=== PATIENT | male | born 1950 | race Caucasian/White ===

== ENCOUNTER 2017-10-28 09:40 | Inpatient (IN) | payer MEDICARE, SELFPAY ==
--- NOTE | 2017-10-28 10:06 | RAD ---
RIGHT FOOT 3 VIEWS: Date: 10/28/17 HISTORY: Right foot injury. FINDINGS: No comparison. Lisfranc joint alignment is anatomic. Plantar arch is maintained. Mild osteophytosis and subchondral sclerosis are present at the first metatarsophalangeal joint. No acute fracture, dislocation, or aggr essive osseous erosions are apparent. IMPRESSION: Mild osteoarthritic changes right foot. POS: [facility]
[2017-10-28 16:28] LABS: #Eosinphils 0.1 thou/uL (0.0-0.7); #Lymphocytes 1.8 thou/uL (1.20-3.40); #Monocytes 0.4 thou/uL (0.11-0.59); #Neutrophils 3.9 thou/uL (1.40-6.50); %Basophils 0.7 % (0.0-1.0); %Lymphocytes 29.3 % (21.0-51.0); %Monocytes 6.9 % (0.0-10.0); Hematocrit 54.4 % (42.0-52.0); Red Blood Cell (RBC) Count 5.64 mill/uL (4.70-6.10); White Blood Cell (WBC) Count 6.3 thou/uL (4.8-10.8)
[2017-10-28 16:41] LABS: ALT (SGPT) 24 U/L (8-55); AST (SGOT) 30 U/L (5-34); Alkaline Phosphatase 67 U/L (40-150); Anion Gap 16 mmol/L (10-20); BUN (Urea Nitrogen) 20 mg/dL (8.4-25.7); Calc. Creatinine Clearance 0 mL/min (70-130); Carbon Dioxide 24 mmol/L (23-31); Chloride 102 mmol/L (98-107); Estimated GFR-MDRD 45; Globulin 3.8 g/dL (2.4-3.5)
[2017-10-28] MEDS ORDERED: ISOVUE-370 76%-LOCM 1 ML ONE (17:07)
--- NOTE | 2017-10-28 17:55 | CT ---
CT ANGIOGRAM OF THE ABDOMEN AND PELVIS AND BILATERAL LOWER EXTREMITIES WITH IV CONTRAST AND 3D MIP RE CONSTRUCTIONS: Date: 10/28/17 PROVIDED CLINICAL HISTORY: Right foot pain and poor circulation. FINDINGS: The visualized lung bases are free of significant opacity. Emphysematous changes are seen. Solid abdominal organs are suboptimally evaluated in the arterial phase of contrast and demonstrate a n unremarkable CT appearance for the phase of contrast in which the study was acquired. There is no b owel dilatation, inflammatory fat stranding, free fluid, or free air apparent. The abdominal aorta is nonaneurysmal. There is moderate stenosis involving the left renal artery at i ts origin. There is mild right-sided renal artery stenosis. There is multifocal atherosclerotic calci fication involving the superior mesenteric artery, as well as the celiac artery and its branches. The re is moderate stenosis involving the proximal SMA. The inferior mesenteric artery is not definitely opacified. Changes of aortobifemoral bypass are demonstrated. There is essentially nonopacification of the super ficial femoral arteries bilaterally. There is reconstitution at the level of the popliteal arteries b ilaterally via branches of profunda and geniculate. There is moderate to severe multifocal predominan tly calcified stenosis involving both popliteal arteries. On the left, there is extensive atherosclerotic plaque involving the anterior tibial artery which is not definitely opacified distal to the mid calf. The posterior tibial artery is predominantly nonopac ified on the left. There is reconstitution of the distal anterior tibial and posterior tibial arterie s via branches of the peroneal artery. On the right, there is opacification of the anterior tibial artery to the level of the foot. The post erior tibial artery is diminutive, but appears opacified to the level of the ankle. The peroneal veronica ry is opacified to the level of the distal calf. IMPRESSION: Extensive bilateral lower extremity atherosclerotic vascular disease predominantly involving the supe rficial femoral arteries which were essentially occluded bilaterally and heavily diseased bilateral p opliteal arteries. There is essentially one vessel runoff on the left and two vessel runoff on the ri ght. Additional mesenteric stenosis as described above. POS: [facility]
[2017-10-28] MEDS ORDERED: Piperacillin/Tazobactam 4.5 GM in Sodium Chloride 0.9% 100 ML IVPB ONE (18:15)
[2017-10-28] MEDS ORDERED: Acetaminophen 325 MG TAB PO PRN (20:16)
[2017-10-28] MEDS ORDERED: HYDROcodone/Acetaminophen 5/325 mg Tablet PO PRN ×2 (20:23)
[2017-10-28] MEDS ORDERED: Ondansetron ODT 4 MG TAB SL PRN (20:23)
[2017-10-28] MEDS ORDERED: Ondansetron HCl/PF 4 MG/2 ML Vial IVP PRN (20:23)
[2017-10-28] MEDS ORDERED: Labetalol HCl 100 MG/20 ML VIAL SLOW IVP PRN (20:45)
[2017-10-28] MEDS ORDERED: hydrALAZINE 20 MG/ML VIAL SLOW IVP PRN (20:45)
[2017-10-28 22:50] VITALS: BMI 21.9
--- NOTE | 2017-10-28 23:53 | CON ---
DATE OF ER EVALUATION: 10/28/2017 HISTORY OF PRESENT ILLNESS: This is a 66-year-old gentleman who dropped a skillet on his right foot on 10/10/2017. Due to failure to heal, the patient presented for evaluation. He has had no fever, p ain, or chills. He has been placing alcohol on the dorsum of his right foot twice a day to keep it c lean. 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 He subsequently required a c arotid endarterectomy for an asymptomatic high grade carotid stenosis and has not been seen for rhonda yost since 2013 despite attempts to bring him in. He denies any claudication, although walks with a c ane. He says he can walk a block without any difficulties. He has no rest pain at night. He denies any past medical history, but has been previously diagnosed with hypertension, dyslipidemia. He pre viously was on a statin as well as enalapril. PAST SURGICAL HISTORY: He has a past surgical history of knee surgery. SOCIAL HISTORY: He has not smoked since 2010. He was a valera prior to skilled nursing. PHYSICAL EXAMINATION: GENERAL: On examination today, he is alert and cooperative with no distress. VITAL SIGNS: He is afebrile. NECK: No carotid bruits. Healed scar. LUNGS: Clear to auscultation. CARDIAC: Regular rate and rhythm. No murmurs. ABDOMEN: Soft, nontender. EXTREMITIES: He has a healed groin incisions bilaterally with palpable femoral pulses. He has a pal pable pulse in his right dorsalis pedis with a biphasic Doppler signal. He has a monophasic posterio r tibial and peroneal on the right. On the left, he has a better posterior tibial signal and a monop hasic dorsalis pedis that is difficult to pickle pumper. He has some erythema over the dorsum of his right foot with some mild purple discoloration. He has no significant skin breakage. He is nontender, no t swollen. LABORATORY DATA: His white count is normal. His hemoglobin is 18 with a hematocrit of 54.4 and a no rmal platelet count. Creatinine is elevated at 1.55. GFR was 45. ASSESSMENT AND PLAN: At this time, he does have some skin at risk, but appears to have adequate circ ulation with a palpable dorsalis pedis and a biphasic signal. His CT angiogram shows widely patent a ortobifemoral with a long profundoplasty is in good profunda circulation, occluded superficial femora l arteries, which is chronic and reconstitution of the popliteal arteries at about the knee level wit h three-vessel runoff, although with some calcification in these vessels. Given the skin changes, pr obably some IV antibiotics to see if this will improve. I am a little hesitant to send him home on o ral antibiotics due to the fact that he is no longer taking as needed medications and there is little room for error on the dorsum of the foot if it were to become more extensive. He could have a femor al to infragenicular popliteal artery bypass with the skin changes worsened but at this time, I think his circulation is adequate.
[2017-10-29] MEDS: Piperacillin/Tazobactam 2.25 GM in Sodium Chloride 0.9% 100 ML IVPB SCH ×5 (00:46→23:25)
[2017-10-29 04:39] LABS: #Eosinphils 0.2 thou/uL (0.0-0.7); #Lymphocytes 2.3 thou/uL (1.20-3.40); #Monocytes 0.6 thou/uL (0.11-0.59); %Basophils 0.5 % (0.0-1.0); %Eosinophils 3.2 % (0.0-10.0); %Lymphocytes 32.3 % (21.0-51.0); %Monocytes 8.2 % (0.0-10.0); Hematocrit 45.2 % (42.0-52.0); White Blood Cell (WBC) Count 7.1 thou/uL (4.8-10.8)
[2017-10-29 04:51] LABS: ALT (SGPT) 19 U/L (8-55); AST (SGOT) 23 U/L (5-34); Alkaline Phosphatase 52 U/L (40-150); Anion Gap 13 mmol/L (10-20); BUN (Urea Nitrogen) 21 mg/dL (8.4-25.7); Bilirubin, Total 1.1 mg/dL (0.2-1.2); Calc. Creatinine Clearance 43 mL/min (70-130); Calcium 10.3 mg/dL (7.8-10.44); Carbon Dioxide 27 mmol/L (23-31); Chloride 98 mmol/L (98-107); Estimated GFR-MDRD 41; Globulin 3.2 g/dL (2.4-3.5); Protein, Total 7.2 g/dL (5.8-8.1)
--- NOTE | 2017-10-29 05:57 | HP-2 ---
CODE STATUS: FULL. PRIMARY CARE PHYSICIAN: [facility]. ATTENDING: Dr. Broussard. RESIDENT: Camacho Montgomery M.D. HISTORIAN: Patient. DATE AND TIME OF SERVICE: 10/28/2017 at 2200 hours. CHIEF COMPLAINT: Foot pain. HISTORY OF PRESENT ILLNESS: Vito Barroso is a 67-year-old man with past medical history of hypertensi on, hyperlipidemia who presents with worsening foot infection. Around 10/10/2017, he dropped a fryin g ramirez on his right foot. Initially, the foot was just bruised and had a skin abrasion. For the last week, the patient's right foot has become more painful and red. The patient has a history of periph eral artery disease. Dr. Patton is familiar with the patient and was consulted. [facility] and saw the patient, he felt as though the patient had good blood flow to the extremities including the right lower extremity, but had concern for a cellulitis and recommen ded IV antibiotics. Patient has not been seeing a primary care doctor or taken any medications for t he last 2 years. In the ER, the patient received Zosyn, vancomycin, and enalapril. PAST MEDICAL HISTORY: 1. Hypertension, uncontrolled. 2. Hyperlipidemia. 3. Atherosclerotic disease. PAST SURGICAL HISTORY: 1. Aortic bypass. 2. Left endarterectomy. ALLERGIES: No known drug allergies. MEDICATIONS: No home medications. FAMILY HISTORY: Unremarkable. SOCIAL HISTORY: The patient denies tobacco, alcohol, and drug use. REVIEW OF SYSTEMS: General, eyes, ENT, respiratory, CV, GI, , skin, musculoskeletal, neuro, and ps ych all negative, unless otherwise stated in HPI. PHYSICAL EXAMINATION: VITAL SIGNS: Blood pressure 197/111, pulse 84, respiratory rate 16, T-max 97.8, pulse ox 99% on room air. Current weight 72 kilograms. GENERAL: The patient is alert and oriented x3 in no acute distress. Well-developed, well-nourished, and appropriately interactive. HEENT: Pupils are equal, round, reactive to light and accommodation. Extraocular muscles intact. C onjunctivae within normal limits. ENT: Tympanic membranes pearly crow without erythema or bulging. Nasal mucosa and oropharynx within normal limits. NECK: Supple, without lymphadenopathy or thyromegaly. CARDIOVASCULAR: Regular rate and rhythm. No murmurs or gallops. RESPIRATORY: Normal effort, no retractions. LUNGS: Clear to auscultation bilaterally. SKIN: Warm and dry with erythema and tenderness to palpation over the dorsum of the right foot. ABDOMEN: Soft, nontender, bowel sounds x4. No masses or distention. EXTREMITIES: No clubbing, cyanosis, or edema. MUSCULOSKELETAL: Structure and tone within normal limits. Full range of motion. NEUROLOGIC: No focal deficits. Sensation within normal limits. PSYCHIATRIC: Appropriate. LABORATORY DATA: White blood cell count 6.3, hemoglobin 18.0, hematocrit 54.4, platelets 209. Sodiu m 138, potassium 4.3, chloride 102, carbon dioxide 24, BUN 20, creatinine 1.55, glucose 91, calcium 1 1.0. Total protein 9.0, albumin 5.2, total bilirubin 1.0, AST 30, ALT 24, alkaline phosphatase 67. ESR 17. CRP less than 0.05. X-ray of the right foot, mild osteoarthritis. CTA of abdomen and pelvi s and bilateral lower extremities, extensive lower extremity, atherosclerotic vascular disease predom inantly in the superficial femoral arteries. ASSESSMENT AND PLAN: A 67-year-old male with cellulitis of right foot. 1. Cellulitis. Admit to inpatient medical. Start IV antibiotics with vancomycin and Zosyn. Pain c ontrol, ESR, and CRP were normal. Low concern for osteomyelitis. Continue following vital signs, re peat morning labs. Foot x-ray only shows mild osteoarthritic changes to right foot. 2. Hypertensive urgency. Patient has not taken BP meds in the last 2 years. Start lisinopril daily and with p.r.n. IV hydralazine and labetalol for systolic blood pressure greater than 180. 3. Acute kidney injury versus chronic kidney disease, uncontrolled hypertension. 4. Unknown amount of time. We will trend a GFR. The patient is tolerating p.o. fluids. 5. Peripheral artery disease, consider starting aspirin and statin. The patient is to be seen by pr imary care physician. 6. Hypercalcemia corrects to normal calcium, when adjusting for albumin. Consider multiple myeloma workup. 7. Activity: Ad johan. 8. Diet: Heart healthy. 9. Code status: FULL. DISPOSITION LENGTH OF HOSPITAL STAY: 2 days. Symptomatic medication will be provided. History and physical exam as well as management were discussed with Dr. Broussard.
[2017-10-29] MEDS: Sodium Chloride 0.9% 1,000 ML IV SCH ×3 (08:02→17:29)
--- NOTE | 2017-10-29 08:22 | PDOC.FM ---
- Subjective Subjective: Pt reports doing much better this morning. Says that his foot swelling, redness and pain has decreased since last night. Denies fever, chills. denies any acute events overnight. Reports having some itching in his calfs. Denies any chest pain, headaches, dizziness, or vision changes. - Objective MAR Reviewed: Yes Vital Signs & Weight: Vital Signs (12 hours) Temp Pulse Resp BP BP BP Pulse Ox 10/29/17 08:05 107/73 10/29/17 07:24 98 F 72 16 107/73 94 L 10/29/17 04:00 97.6 F 73 20 119/72 94 L 10/28/17 22:50 82 107/72 10/28/17 21:27 132/89 Weight Weight 69.127 kg I&O: 10/28/17 10/29/17 10/30/17 06:59 06:59 06:59 Intake Total 395 Output Total 350 Balance 45 Result Diagrams: 10/29/17 03:21 10/29/17 03:21 Radiology Reviewed by me: Yes Radiology: Foot X-Ray: Mild osteoarthritic changes CT angiogram of abdomen and pelvis and bilateral lower extremitites: Extensive bilateral lower extremity atherosclerotic vascular dz predominantly involving the superficial femoral arteries which were essentially occluded bilaterally and heavily diseased bilateral popliteral arteries. There is essentially one vessel runoff on the left and two vessel runoff on the right. <Jayro Andrews - Last Filed: 10/29/17 08:21> - Objective Vital Signs & Weight: Vital Signs (12 hours) Temp Pulse Resp BP BP BP Pulse Ox 10/29/17 11:22 98 F 80 16 129/83 98 10/29/17 10:14 72 107/73 10/29/17 08:05 107/73 10/29/17 08:00 98 F 72 16 10/29/17 07:24 98 F 72 16 107/73 94 L 10/29/17 04:00 97.6 F 73 20 119/72 94 L Weight Weight 69.127 kg I&O: 10/28/17 10/29/17 10/30/17 06:59 06:59 06:59 Intake Total 395 200 Output Total 350 Balance 45 200 Result Diagrams: 10/29/17 03:21 10/29/17 03:21 <Gurpreet Mayes - Last Filed: 10/29/17 12:29> Phys Exam - Physical Examination HEENT: moist MMs, oral pharynx no lesions Neck: no nodes, supple, full ROM Respiratory: no wheezing, no rales, no rhonchi, clear to auscultation bilateral Cardiovascular: RRR, no significant murmur, no rub Gastrointestinal: soft, non-tender, no distention, positive bowel sounds Musculoskeletal: no edema, pulses present pusles weak in lower extremities Neurological: non-focal, normal sensation, moves all 4 limbs Lymphatic: no nodes Psychiatric: normal affect, A&O x 3 Deviation from normal: Redness and bruising noted on anterior right foot. Warm to touch. -: Pt states improved from yesterday. <Jayro Andrews - Last Filed: 10/29/17 08:21> Dx/Plan (1) Cellulitis and abscess of foot excluding toe Code(s): L03.119 - CELLULITIS OF UNSPECIFIED PART OF LIMB; L02.619 - CUTANEOUS ABSCESS OF UNSPECIFIED FOOT Status: Acute Plan: -Redness and bruising on R. foot since late september when he dropped a ramirez on it. Warm to touch. -On IV vancomycin and zosyn. Improving since yesterday. Will continue IV abx for today and possibly switch to oral tmrw. -No elevated WBC. No fevers overnight. (2) PAD (peripheral artery disease) Code(s): I73.9 - PERIPHERAL VASCULAR DISEASE, UNSPECIFIED Status: Acute Plan: -Hx of PAD. -CT angiogram done showing occlusion of multiple vessels. -CV surgery consulted- Dr. Patton -Reports good perfusion to area. Thinks cellulitis of foot. Recommends continuing with abx -Will continue to follow recommendations (3) Hypertensive urgency Code(s): I16.0 - HYPERTENSIVE URGENCY Status: Acute Plan: BP elevated in 200s on admission. Given enalapril and IV labetolol/hydralazine. Since then has normalized. -Cr elevated. Will start norvasc instead of continuing enalapril at this time. Will continue to monitor BP and adjust medication as needed. -Iv Labetolol/hydralzine PRN if SBP >180 -If Cr improves may switch to lisinopril. (4) FANTASMA (acute kidney injury) Code(s): N17.9 - ACUTE KIDNEY FAILURE, UNSPECIFIED Status: Acute Plan: Cr 1.69 today. Likely due to poor perfusion from elevated BP in recent past. Had not been to a doctor for a few years. -Started IV NS@125. Will follow BMP tmrw for improvement. <Jayro Andrews - Last Filed: 10/29/17 08:21> Attending Addendum - Attending Addendum I personally evaluated the patient and discussed the management with Dr. Andrews. I agree with the History, Examination, Assessment and Plan documented above with any addition or exceptions noted below. Patient with some improvement in cellulitis this morning on antibiotic therapy. CV surgery thinks he has adequate blood flow to treat infection, but will need close outpatient follow up. Will continue patient on Vancomycin which will require drug monitoring to ensure levels not toxic. Continue Zosyn. If continues to improve and remains afebrile, may be ready for transition to oral abx in next 1-2 days and discharge at that time. Will add Norvasc to blood pressure regimen to help gain better control of his currently untreated HTN. <Gurpreet Mayes - Last Filed: 10/29/17 12:29>
[2017-10-29] MEDS ORDERED: FLU VACC TS2017-18 (>65YR) 0.5 ML SYRINGE IM ONE (09:00)
[2017-10-29] MEDS ORDERED: Vancomycin HCl 1.25 GM in Sodium Chloride 0.9% 250 ML 250 ML IVPB SCH (09:00)
[2017-10-29] MEDS ORDERED: Lisinopril 10 MG TAB PO SCH (09:00)
[2017-10-29 09:11] LABS: Band 5 % (5-11); Reactive Lymphocytes 1 % (0-10)
[2017-10-29 09:12] LABS: Neutrophil 63 % (42-75)
[2017-10-29] MEDS: Amlodipine 5 MG TAB PO SCH (10:14)
[2017-10-29] MEDS: Vancomycin HCl 1.5 GM in Sodium Chloride 0.9% 250 ML 300 ML IVPB SCH (11:54)
[2017-10-29] MEDS ORDERED: diphenhydrAMINE 25 MG CAP PO ONE (15:52)
[2017-10-29] MEDS: diphenhydrAMINE 25 MG CAP PO PRN (23:28)
[2017-10-30] MEDS: Sodium Chloride 0.9% 1,000 ML IV SCH ×3 (02:26→15:00)
[2017-10-30] MEDS: Piperacillin/Tazobactam 2.25 GM in Sodium Chloride 0.9% 100 ML IVPB SCH ×2 (05:28→11:19)
[2017-10-30 07:01] LABS: #Eosinphils 0.3 thou/uL (0.0-0.7); #Monocytes 0.6 thou/uL (0.11-0.59); #Neutrophils 3.4 thou/uL (1.40-6.50); %Basophils 0.8 % (0.0-1.0); %Eosinophils 4.3 % (0.0-10.0); %Lymphocytes 31.7 % (21.0-51.0); %Monocytes 9.5 % (0.0-10.0); Hematocrit 44.4 % (42.0-52.0); Red Blood Cell (RBC) Count 4.55 mill/uL (4.70-6.10); White Blood Cell (WBC) Count 6.4 thou/uL (4.8-10.8)
[2017-10-30 07:41] LABS: Anion Gap 13 mmol/L (10-20); BUN (Urea Nitrogen) 21 mg/dL (8.4-25.7); Calc. Creatinine Clearance 48 mL/min (70-130); Calcium 9.4 mg/dL (7.8-10.44); Carbon Dioxide 22 mmol/L (23-31); Chloride 108 mmol/L (98-107); Estimated GFR-MDRD 47
--- NOTE | 2017-10-30 08:10 | PDOC.FM ---
- Subjective Subjective: Pt is doing okay. Says his foot is doing better. Was up walking around with minimal pain. Says the wound started weeping last night. Still reporting having an itching/tingling pain in his calfs. Says that the benadryll helped some. Has been putting lotion but still experiencing the itching sensation. Says if legs get to hot gets irritated. Denies any acute events overnight. No other concerns or complaints at this time. - Objective MAR Reviewed: Yes Vital Signs & Weight: Vital Signs (12 hours) Temp Pulse Resp BP Pulse Ox 10/30/17 07:45 97.4 F L 72 18 160/88 H 94 L Weight Weight 69.127 kg I&O: 10/29/17 10/30/17 10/31/17 06:59 06:59 06:59 Intake Total 395 2780 Output Total 350 Balance 45 2780 Result Diagrams: 10/30/17 04:46 10/30/17 04:46 Radiology Reviewed by me: Yes Radiology: Foot X-Ray: Mild osteoarthritic changes CT angiogram of abdomen and pelvis and bilateral lower extremitites: Extensive bilateral lower extremity atherosclerotic vascular dz predominantly involving the superficial femoral arteries which were essentially occluded bilaterally and heavily diseased bilateral popliteral arteries. There is essentially one vessel runoff on the left and two vessel runoff on the right. <Jayro Andrews - Last Filed: 10/30/17 08:10> - Objective Vital Signs & Weight: Vital Signs (12 hours) Temp Pulse Resp BP BP Pulse Ox 10/30/17 08:36 72 160/88 H 10/30/17 07:45 97.4 F L 72 18 160/88 H 94 L Weight Weight 69.127 kg I&O: 10/29/17 10/30/17 10/31/17 06:59 06:59 06:59 Intake Total 395 2780 Output Total 350 Balance 45 2780 Result Diagrams: 10/30/17 04:46 10/30/17 04:46 <Gurpreet Mayes - Last Filed: 10/30/17 11:50> Phys Exam - Physical Examination HEENT: moist MMs, oral pharynx no lesions Neck: no nodes, no JVD, supple, full ROM Respiratory: no wheezing, no rales, no rhonchi, clear to auscultation bilateral Cardiovascular: RRR, no significant murmur, no rub Gastrointestinal: soft, non-tender, no distention, positive bowel sounds Musculoskeletal: no edema Pulses faint in LE bilaterally. no dryness noted in calfs Some redness noted. Neurological: non-focal, normal sensation, moves all 4 limbs Lymphatic: no nodes Psychiatric: normal affect Deviation from normal: Erythematous, bruising on anterior R. foot. Stable from yesterday. -: No drainage noted this morning. 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 <DarrylJayro - Last Filed: 10/30/17 08:10> Dx/Plan (1) Cellulitis and abscess of foot excluding toe Code(s): L03.119 - CELLULITIS OF UNSPECIFIED PART OF LIMB; L02.619 - CUTANEOUS ABSCESS OF UNSPECIFIED FOOT Status: Acute Plan: -Redness and bruising on R. foot since late september when he dropped a ramirez on it. Warm to touch. -Erythema improved from yesterday. -On IV vancomycin and zosyn. Will give IV abx this morning and switch to oral abx -No elevated WBC. No fevers overnight. (2) PAD (peripheral artery disease) Code(s): I73.9 - PERIPHERAL VASCULAR DISEASE, UNSPECIFIED Status: Acute Plan: -Hx of PAD. -CT angiogram done showing occlusion of multiple vessels. -CV surgery consulted- Dr. Patton -Reports good perfusion to area. Thinks cellulitis of foot. Recommends continuing with abx -Will continue to follow recommendations -Having tingling/itching pain in lower extremitites bilaterally. No sign of dryness or rash. Possibly sensation he is feeling is related to decreased blood flow from PAD. Will start him on a statin and aspirin to help with PAD. Benadryll for itching. -Will consider other medications to help with possible neuropathic, vascular pain. (3) Hypertensive urgency Code(s): I16.0 - HYPERTENSIVE URGENCY Status: Acute Plan: BP elevated in 200s on admission. Given enalapril and IV labetolol/hydralazine. Since then has normalized. -Cr elevated. On 5mg of Norvasc. BP stable. Will continue to monitor BP and adjust medication as needed. -Iv Labetolol/hydralzine PRN if SBP >180 -If Cr improves may switch to lisinopril. (4) FANTASMA (acute kidney injury) Code(s): N17.9 - ACUTE KIDNEY FAILURE, UNSPECIFIED Status: Acute Plan: Cr 1.51 today. Down from 1.69 yesterday. Possibly around baseline. Likely due to poor perfusion from elevated BP in recent past. Had not been to a doctor for a few years. -IV NS@125. Will continue IV fluids for now. <Jayro Andrews - Last Filed: 10/30/17 08:10> Attending Addendum - Attending Addendum I personally evaluated the patient and discussed the management with Dr. Andrews. I agree with the History, Examination, Assessment and Plan documented above with any addition or exceptions noted below. Patient with stable exam of foot today. No evidence of worsening infection. Continues on Vanc and Zosyn, Vanc trough appropriate. Afebrile and no elevation in WBC. Awaiting further recommendations from CV Surg, potential discharge if no other intervention recommended. Will send on oral antibiotics for completion of therapy. <Gurpreet Mayes - Last Filed: 10/30/17 11:50>
[2017-10-30] MEDS: Amlodipine 5 MG TAB PO SCH (08:36)
[2017-10-30] MEDS ORDERED: Aspirin 81 mg Enteric Coated Tablet PO SCH (09:00)
[2017-10-30] MEDS: Vancomycin HCl 1.5 GM in Sodium Chloride 0.9% 250 ML 300 ML IVPB SCH (12:11)
[2017-10-30] MEDS: diphenhydrAMINE 25 MG CAP PO PRN (12:16)
[2017-10-30 19:25] VITALS: BP 170/108; TEMP 97.8
[2017-10-30] MEDS ORDERED: Atorvastatin Calcium 40 MG TAB PO SCH (21:00)
--- NOTE | 2017-10-31 11:55 | DIS-2 ---
DATE OF ADMISSION: 10/28/2017 DATE OF DISCHARGE: 10/30/2017 ADMITTING ATTENDING: Dr. Souleymane Broussard. DISCHARGE ATTENDING: Dr. Gurpreet Mayes. RESIDENT: Jayro Andrews, PGY-1. PROCEDURES: None. CONSULTS: Dr. Patton with Cardiovascular Surgery consulted on 10/28/2017. IMAGING DATA: Foot x-ray on 10/28/2017, which showed mild osteoarthritic changes of the right foot a nd aorta with runoff CTA, which showed extensive bilateral lower extremity atherosclerotic vascular d isease, predominantly involving the superficial femoral arteries, which were essentially occluded mona aterally and heavily diseased bilateral popliteal arteries. There is essentially 1-vessel runoff on the left and 2-vessel runoff on the right. Additional mesenteric stenosis as described above. PRIMARY DIAGNOSES: 1. Cellulitis of the right foot, excluding the toe. 2. Peripheral artery disease. 3. Hypertensive urgency. 4. Acute kidney injury. HISTORY OF PRESENT ILLNESS AND BRIEF HOSPITAL COURSE: This is a 67-year-old male that came in after dropping a ramirez on his right foot early in September. He initially only had some bruising, but over th e course of last week, it had started to swell, get more red, and get a little more painful. At this time, he came in to the ER. It has been noted that the patient had not been to the doctor for over 2 years, and he had a history of peripheral artery disease. At this time, they consulted Dr. Patton, who did Dopplers of his arteries and found good blood flow with Doppler and recommended that he thoug ht that it was a cellulitis of his foot, not due to ischemic changes at this time. Initially labs, w everette blood cell count was not elevated at 6.3. No other abnormalities seen on CBC. His creatinine o n admission was 1.55, and GFR was 45, and we were unsure of his baseline due to him not seeing a doct or on occasion. So at this time we admitted him and started him on IV vancomycin and Zosyn. He cont inued to improve overnight. When I saw him in the first morning, he reported that the redness had go tten a lot better and had improved already. Also on admission, it was found that his blood pressure was elevated to around 223/128. At that time, they gave him some IV hydralazine and labetalol, it ca me down to 132/89. He was not on any medications on admission. We started him on Norvasc 5 mg daily , and throughout the rest of his hospital course, his blood pressures stayed stable in the 120s/70s, and we will continue IV antibiotics through a course of 10/29/2017. We will give him another course of IV antibiotics in the morning on 10/30/2017. His foot continued to improve and kind of stayed sta ble on the 10/30/2017. He never did spike a fever or show any increase in his white blood cell count , and at this time, Dr. Patton saw him one more time to make sure that the changes in the foot were no t ischemic related. At this time, Dr. Patton agreed that patient was stable to go home on oral antibi otics. We would send him home on clindamycin to cover for MRSA 450 mg p.o. q.6 hours for 10 more day s. We also would send him home on amlodipine and give him aspirin and atorvastatin to help with his peripheral artery disease. DISCHARGE MEDICATIONS: Amlodipine 5 mg p.o. daily, aspirin 81 mg p.o. daily, atorvastatin 40 mg p.o. daily, and clindamycin 450 mg p.o. q.6 hours for 10 days. DISPOSITION: Stable. DISCHARGE INSTRUCTIONS: 1. Location: Home. 2. Activity: As tolerated. 3. Diet: Heart healthy diet. 4. Followup: He will need to follow up with his primary care provider in 1 week to follow israel patricia and will also need to follow up with Dr. Patton in a month to set up care, so he can continue to be following with his peripheral arterial disease.
== END 2017-10-30 18:53 | disposition home or self-care (01) | DRG 603 ==
LOC: ERS 09:40 → T4-B 18:30
PROVIDERS: ADMIT Family Medicine; ATTEND Family Medicine
DX: L03.115 Cellulitis of right lower limb (principal); N17.9 Acute kidney failure, unspecified; E83.52 Hypercalcemia; I73.9 Peripheral vascular disease, unspecified; L02.611 Cutaneous abscess of right foot; E78.5 Hyperlipidemia, unspecified; I25.10 Atherosclerotic heart disease of native coronary artery without angina pectoris; I16.0 Hypertensive urgency; S90.31XA Contusion of right foot, initial encounter; W20.8XXA Other cause of strike by thrown, projected or falling object, initial encounter
CPT/HCPCS: 36415; 75635; 80048; 80053; 80202; 85025; 85060; 85652; 86140; 96365; 96367; A4216; J0360; J2543; J3370; J7050

== ENCOUNTER 2017-11-07 11:55 | Inpatient (IN) | payer MEDICARE, SELFPAY ==
[2017-11-07 12:49] LABS: Hemoglobin 16.8 g/dL (14.0-18.0); Mean Corpuscular HGB CONC 33.4 g/dL (32.0-36.0); Mean Corpuscular Volume 95.8 fl (80.0-94.0); Mean Platelet Volume 6.2 fL (7.4-10.4); Platelet Count 216 thou/uL (130-400); RBC Distribution Width 11.8 % (11.5-14.5); Red Blood Cell (RBC) Count 5.25 mill/uL (4.70-6.10); White Blood Cell (WBC) Count 6.3 thou/uL (4.8-10.8)
[2017-11-07 13:08] LABS: Band 1 % (5-11); Lymphocytes 20 % (21-51); MDiff Complete? YES; Monocytes 1 % (0-10); Neutrophil 71 % (42-75); RBC Morphology Normal; Reactive Lymphocytes 7 % (0-10)
[2017-11-07 13:10] LABS: ALT (SGPT) 29 U/L (8-55); AST (SGOT) 37 U/L (5-34); Albumin 4.9 g/dL (3.4-4.8); Alkaline Phosphatase 62 U/L (40-150); Anion Gap 17 mmol/L (10-20); BUN (Urea Nitrogen) 21 mg/dL (8.4-25.7); Bilirubin, Total 0.9 mg/dL (0.2-1.2); Calc. Creatinine Clearance 0 mL/min (70-130); Calcium 10.7 mg/dL (7.8-10.44); Carbon Dioxide 23 mmol/L (23-31); Chloride 101 mmol/L (98-107); Estimated GFR-MDRD 53; Globulin 3.9 g/dL (2.4-3.5); Glucose 86 mg/dL (80-115); Potassium 4.9 mmol/L (3.5-5.1); Protein, Total 8.8 g/dL (5.8-8.1); Sodium 136 mmol/L (136-145)
[2017-11-07 13:15] LABS: CKMB 3.4 ng/mL (0-6.6); Troponin I 0.032 ng/mL (< 0.028)
--- NOTE | 2017-11-07 14:11 | RAD ---
PORTABLE CHEST ONE VIEW: Date: 11-07-17 Time: 1:18 p.m. History: Chest pain. FINDINGS: The heart size is normal. The aorta is tortuous. No focal areas of consolidation, pneumothorax, or pl eural effusions are seen. IMPRESSION: No radiographic evidence of acute cardiopulmonary process. POS: [facility]
[2017-11-07 15:26] VITALS: BMI 22.1
[2017-11-07] MEDS ORDERED: Ondansetron ODT 4 MG TAB SL PRN (15:36)
[2017-11-07] MEDS ORDERED: Ondansetron HCl/PF 4 MG/2 ML Vial IVP PRN (15:36)
[2017-11-07] MEDS ORDERED: Acetaminophen 325 MG TAB PO PRN ×2 (15:36→21:27)
[2017-11-07] MEDS ORDERED: Nitroglycerin 0.4 MG TAB (25 Tab Bottle) PO PRN (16:02)
--- NOTE | 2017-11-07 16:23 | PDOC.EVN ---
Event Note - Event Note Event Note: Attending H&P I personally evaluated the patient and discussed the management with Dr. Tijerina. I have reviewed the written H&P and it is repeated by me. I agree with the History, Examination, Assessment and Plan documented above with any addition or exceptions noted below. Patient notes no CP at the time of my exam. More concerning is the difficult intentional movement with the right arm that has been present for a few days. No focal weakness noted on exam. Besides the CP we will be working up what appears to be a possible cerebellar defect. CT ordered. May need a MRI. Continue BP meds.
[2017-11-07 16:40] LABS: Troponin I 0.027 ng/mL (< 0.028)
[2017-11-07 16:53] LABS: Magnesium 2.1 mg/dL (1.6-2.6); Phosphorus 3.4 mg/dL (2.3-4.7)
[2017-11-07 17:13] LABS: Cardiac Risk 3.5 (Less than 4.5)
[2017-11-07] MEDS ORDERED: Labetalol HCl 100 MG/20 ML VIAL SLOW IVP PRN (18:03)
[2017-11-07 19:32] LABS: Troponin I 0.027 ng/mL (< 0.028)
--- NOTE | 2017-11-07 19:46 | MRI ---
BRAIN MRI WITH AND WITHOUT CONTRAST 11/07/17 HISTORY: Numbness and tingling of right hand with loss of strength and discoordination. No prior imaging comparison available. FINDINGS: There is mild parenchymal volume loss with compensatory dilatation of ventricular system. No acute te rritorial infarction. There are multifocal lacunar infarctions, chronic in appearance and scattered small foci of susceptibility. There is mild chronic microvascular ischemic disease of the cerebral wh ite matter. No pathologic intra-axial enhancement. The imaged skull base flow voids are grossly paten t. [place] right intraocular lens is absent. Mild right mastoid fluid is present. There is mild mucosa l thickening of paranasal sinuses. IMPRESSION: Scattered remote lacunar infarctions. No acute territorial infarction or masses effect. Scattered areas of punctate hemorrhagic susceptibility. This could be on the basis of hemosiderin dep osition related to amyloid angiopathy or alternatively microhemorrhage related to the above desc ribed chronic lacunar infarctions. Recommend clinical correlati on and as necessary, imaging followup may be obtained. POS: [facility]
[2017-11-07] MEDS ORDERED: Atorvastatin Calcium 40 MG TAB PO SCH (21:00)
--- NOTE | 2017-11-08 00:37 | HP-2 ---
DATE OF ADMISSION: 11/07/2017 CODE STATUS: FULL. PRIMARY CARE PHYSICIAN: Randall [email or web address]. ATTENDING: Gage Ornelas M.D. RESIDENT: Henry Tijerina DO HISTORIAN: The patient. CHIEF COMPLAINT: Chest pain. HISTORY OF PRESENT ILLNESS: Patient complains of symptoms which onset approximately 24 hours ago. Symptoms include possible chest pain or indigestion with associated right-hand weakness, discoordination, and leg weakness without diaphoresis, dizziness, facial drooping, nausea, vomiting. Patient had been recently hospitalized for a nonhealing wound and was discharged 3 days ago after having been seen by Vascular and had been evaluated for possible fem-pop bypass. Patient has a known peripheral vascular disease and has had both aortofemoral bypass in 2009 and endarterectomy. Today, patient decided to present to the ER after continuation as he has difficulty using his right hand. In the emergency room, initial troponin was indeterminate at 0.032 [address] EKG showed no [address] abnormalities or T-wave inversions with borderline Q-waves in the inferior leads. PAST MEDICAL HISTORY: Includes hypertension, peripheral artery disease, FANTASMA, and possible chronic kidney disease, 3. PAST SURGICAL HISTORY: Aortofemoral bypass in 2009 and in 2013 of bilateral endarterectomy. ALLERGIES: No known drug allergies. MEDICATIONS: Amlodipine 5 mg daily, aspirin 81 mg daily, atorvastatin 40 mg daily, clindamycin 450 mg q.6 hours for an additional 6 days to complete a 10- day course. SOCIAL HISTORY: Tobacco: Former smoker, 81-maty-kyan history, has not smoked in 11 years. Alcohol: 2-3 drinks weekly. Drugs: None. REVIEW OF SYSTEMS: General: Denies fever, chills, change in appetite, night sweats, fatigue. HEENT: Denies vision changes, eye pain, nasal congestion, or rhinorrhea. Respiratory: Denies cough, congestion, or shortness of breath. Cardiovascular: Denies chest pain or palpitations. Gastrointestinal: Admits to nausea, denies vomiting. Genitourinary: Denies any incontinence, dysuria. Skin: Denies any rash or lesions. Musculoskeletal: Denies any pain or tenderness. Neuro: Admits to right-hand weakness and discoordination. Denies any associated numbness, syncope, or seizure. Psychiatric: Denies anxiety or depression. PHYSICAL EXAMINATION: VITAL SIGNS: Blood pressure 149/88, pulse 65, respiratory rate 13, T-max 98.6, pulse ox 95% on room air, current weight is 72.6 kilograms. GENERAL: Patient is alert and oriented x3, in no apparent distress, well nourished and appropriately interactive. HEENT: PERRLA, EOMI. Conjunctivae within normal limits. NECK: Supple. CARDIOVASCULAR: Regular rate and rhythm without murmurs or gallops. RESPIRATORY: Normal effort, no retractions, clear to auscultation bilateral. SKIN: Warm and dry without cyanosis or lesions. ABDOMEN: Soft, nontender with bowel sounds in all 4 quadrants. EXTREMITIES: No clubbing or cyanosis. MUSCULOSKELETAL: Structure and tone are normal. 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 Sensation is normal and equal bilaterally. Cranial nerves II-XII grossly intact. PSYCHIATRIC: Appropriate. LABORATORY DATA: CBC: Hemoglobin 16.8, hematocrit 50.3, white count 6.3, platelets 216, MCV 95.8, 1% bands, 71% neutrophils. CMP: Sodium 136, potassium 4.9, calcium 101, bicarbonate 23, BUN 21, creatinine 1.34, glucose 86 , calcium 10.97. Total serum protein is 8.8, albumin is 4.9, AST is 37, ALT is 29, alkaline phosphatase is 62, total bilirubin is 0.9. CK-MB is 3.4, troponin 0.032. Chest x-ray is within normal limits. ASSESSMENT AND PLAN: This is a 67-year-old male with atypical chest pain and right-hand discoordination. 1. Atypical chest pain. LISA score is 4, 20%, placing him at high risk, heart score is 5, moderate risk. We will admit to tele to observe acute coronary syndrome rule out, trend 3 troponins. Add additional troponins as needed. Repeat EKG and do a nuclear stress test in the morning. Make n.p.o. at midnight. We will continue his Norvasc, aspirin, and atorvastatin. Order a mag and phos. 2. Right-hand weakness, order CT brain without contrast and MRI brain. 3. Peripheral artery disease, this is likely contributing to his risk of acute coronary syndrome. We will continue on his home medications as above. 4. Acute kidney injury versus chronic kidney disease do not have a long enough history of elevated creatinine to call the chronic kidney disease; however, this is likely the case given his long-term uncontrolled hypertension. Creatinine has improved since prior admission last week. Continue to monitor BMP and encourage p.o. fluids. 5. Hypertension. Continue home medications as above. 6. Right foot ulcer is largely healed. We will continue his previously prescribed clindamycin. 7. Elevated troponins. This is currently an indeterminate. We will continue to trend and repeat EKGs with a stress test in the morning as above. 8. Elevated calcium, this is consistent with previous value that corrects to 10.0 is currently asymptomatic. We will give him fluids and will recheck in the morning. 9. Elevated protein was consistent with previous value. We will trend; however this is not currently elevated enough to be of immediate concern. 10. Deep venous thrombosis prophylaxis. We will start SCDs, encourage ambulation, and patient is on aspirin. DISPOSITION: Stable with a likely length of stay for 48 hours. History and physical management was discussed with Dr. Gage Ornelas. STACIA
[2017-11-08 04:41] LABS: ALT (SGPT) 28 U/L (8-55); AST (SGOT) 33 U/L (5-34); Albumin 4.4 g/dL (3.4-4.8); Alkaline Phosphatase 55 U/L (40-150); Anion Gap 14 mmol/L (10-20); BUN (Urea Nitrogen) 22 mg/dL (8.4-25.7); Bilirubin, Total 0.9 mg/dL (0.2-1.2); Calc. Creatinine Clearance 52 mL/min (70-130); Calcium 10.2 mg/dL (7.8-10.44); Carbon Dioxide 24 mmol/L (23-31); Chloride 102 mmol/L (98-107); Estimated GFR-MDRD 51; Globulin 3.2 g/dL (2.4-3.5); Glucose 84 mg/dL (80-115); Potassium 4.3 mmol/L (3.5-5.1); Protein, Total 7.6 g/dL (5.8-8.1); Sodium 136 mmol/L (136-145)
--- NOTE | 2017-11-08 05:47 | PDOC.FM ---
- Subjective Subjective: Pt did well over night, there were no acute events. States that he feels well, however there has been little improvement in his right hand weakness. Denies all other symptoms in ROS - Objective Vital Signs & Weight: Vital Signs (12 hours) Temp Pulse Resp BP BP Pulse Ox 11/08/17 03:55 97.7 F 84 14 145/91 H 96 11/07/17 23:28 97.5 F L 69 16 135/80 95 11/07/17 20:30 97.4 F L 73 16 11/07/17 19:37 97.4 F L 73 16 163/85 H 95 11/07/17 19:00 73 161/68 H I&O: 11/06/17 11/07/17 11/08/17 06:59 06:59 06:59 Intake Total 350 Balance 350 Result Diagrams: 11/07/17 12:33 11/08/17 04:01 Phys Exam - Physical Examination Constitutional: NAD HEENT: PERRLA, moist MMs Neck: no nodes, no JVD, supple, full ROM Respiratory: clear to auscultation bilateral Cardiovascular: RRR, no significant murmur Gastrointestinal: soft, non-tender Musculoskeletal: no edema Neurological: normal sensation, moves all 4 limbs Normal strength and sensation of right hand. Pt states that he has difficulty with intentional movement of this hand Lymphatic: no nodes Psychiatric: normal affect, A&O x 3 Skin: no rash Dx/Plan (1) Atypical chest pain Code(s): R07.89 - OTHER CHEST PAIN Status: Acute (2) Right hand weakness Code(s): R29.898 - OTH SYMPTOMS AND SIGNS INVOLVING THE MUSCULOSKELETAL SYSTEM Status: Acute (3) FANTASMA (acute kidney injury) Code(s): N17.9 - ACUTE KIDNEY FAILURE, UNSPECIFIED Status: Acute (4) Cellulitis and abscess of foot excluding toe Code(s): L03.119 - CELLULITIS OF UNSPECIFIED PART OF LIMB; L02.619 - CUTANEOUS ABSCESS OF UNSPECIFIED FOOT Status: Acute (5) PAD (peripheral artery disease) Code(s): I73.9 - PERIPHERAL VASCULAR DISEASE, UNSPECIFIED Status: Chronic - Plan Plan: 1. atypical chest pain -Trops have trended down from indeterminate to negative. -EKG has been negative -Pt will go for stress test today 2. Right hand weakness -MRI shows old lacunar infarct with possible areas of punctate hemorrhage. -Will order CTA head/neck with profusion today 3. Hypertension -Pt was started on Norvasc during previous admission -This does not appear to be enough for control -Will start additional class of antihypertensive. -Pt needs outpt fu 4. PAD -Pt on appropriate meds from home 5. Foot wound -healing well, continue abx 6. FANTASMA -Dt not having 3 months of data, this cannot be called CKD. However, Cr is stable and has been consistently elevated to the current level throughout both hospitalizations -Most likely dx is CKD III 2/2 uncontrolled HTN
[2017-11-08] MEDS ORDERED: Clindamycin 150 MG CAP PO SCH (07:45)
[2017-11-08] MEDS ORDERED: Aspirin 325 MG TAB PO SCH (09:00)
[2017-11-08] MEDS ORDERED: Amlodipine 5 MG TAB PO SCH (09:00)
[2017-11-08] MEDS ORDERED: Aspirin 81 mg Enteric Coated Tablet PO SCH (09:00)
[2017-11-08] MEDS ORDERED: ADENOSINE 60 MG/20 ML VIAL ONE (11:49)
--- NOTE | 2017-11-08 14:18 | PRG ---
DATE OF SERVICE: 11/08/2017 Mr. Barroso is a pleasant 67-year-old white male patient, who was admitted with clumsiness and weaknes s of his right hand, also known as "clumsy hand syndrome." Since this is a symptom of lacunar TIA or stroke. He underwent an MRI, which showed multiple old lacunar infarcts. We will proceed with a CT A of the head and neck, given that he has already had a left carotid endarterectomy and aortic graft several years ago. Based on findings, we will proceed treatment with aspirin and statin as well as b lood pressure control.
[2017-11-08 15:42] VITALS: BP 135/87; TEMP 97.7
--- NOTE | 2017-11-08 16:01 | CT ---
EXAM: CT ANGIOGRAM OF THE HEAD CT ANGIOGRAM OF THE NECK CT PERFUSION 11/08/17 HISTORY: Transient ischemic attack. Numbness and tingling of the right hand, that started yesterday. No streng th loss today. COMPARISON: None. CORRELATION: Brain MRI with and without contrast 11/07/17. TECHNIQUE: Noncontrast head CT is performed in the axial plane. CT angiogram of the neck is performed in the axi al plane. Sagittal and coronal three dimensional reformatted images are submitted for interpretation. FINDINGS: NONCONTRAST HEAD CT: No parenchymal hemorrhage. No extra-axial hematoma. No midline shift. Basilar cisterns are patent. Br ain volume, age appropriate. Cortical crow-white matter differentiation is preserved. Ventricles and sulci are patent and symmetric. Remote lacunar infarcts in the right carotid nucleus and left thalamu s. Chronic small vessel ischemic change of the white matter identified. Calvarium is intact. Adequate aeration of the sinuses and mastoid air cells. The visualized ocular lenses are appropriately located. Note, the right ocular lens is a prosthetic l ens. Aerodigestive tract is patent. No mucosal abnormality. Midline fatty raphae of the tongue is pre served. Symmetric attenuation of the parotid and submandibular glands. Thyroid gland is unremarkable. Symmetric attenuation of the sternocleidomastoid muscles. No evidence of lymphadenopathy by size cr iteria. There is no prevertebral soft tissue swelling. There are degenerative changes of the cervical spine. Cervical spine vertebral body height is maintai amisha. No fracture. Varying degrees of central canal stenosis and foraminal narrowing on the basis of d egenerative change. Presumed chronic changes in the visualized lung apices. Upper mediastinum is unremarkable. CT ANGIOGRAM: Visualized aortic arch has appropriate enhancement and luminal diameter. RIGHT CAROTID: Right carotid artery origin has appropriate enhancement and luminal diameter. The right common caroti d artery has appropriate enhancement and luminal diameter. There is long segment moderate stenosis in volving the right carotid bifurcation and proximal right internal carotid artery. The mid to distal r ight internal carotid artery has appropriate enhancement and luminal diameter. LEFT CAROTID: There is patency and normal luminal diameter of the origin of the left carotid artery. The left commo n carotid artery, carotid bifurcation and internal carotid artery have appropriate enhancement and gladys thomas diameter. There is evidence of previous left carotid endarterectomy at the bifurcation. There is short segment mild narrowing of the left common carotid artery. There is no evidence of hemodynami laquita significant stenosis based upon NASCET criteria in the left carotid artery. Note, the proximal left internal carotid artery is tortuous. Both vertebral arteries are patent throughout their course in the neck. Vertebral arteries are essentially codominant. CT ANGIOGRAM OF THE HEAD: The intracranial internal carotid arteries have appropriate enhancement and luminal diameter. There i s atherosclerosis involving both cavernous and paraclinoid segments without hemodynamically significa nt stenosis. Left and right A1 and M1 segments have symmetric enhancement and luminal diameter. Proxi mal A2 segments and proximal MDA branches are essentially symmetric. Left PICA artery origin is unremarkable. Right PICA artery origin is not adequately assessed. Both ve rtebral arteries supply normal caliber basilar artery. There is symmetric enhancement and luminal di ameter. CT PERFUSION: There is no evidence of increased mean transit time. No evidence of decreased blood flow or decrease d blood volume. IMPRESSION: 1. Moderate stenosis of the right internal carotid artery and right carotid bifurcation based up on NASCET criteria. Cardiovascular surgical consultation is recommended. Previous left carotid endart erectomy without associated significant stenosis. 2. Unremarkable CT angiogram of the [place] of [place]. 3. Unremarkable CT perfusion. POS: [facility]
--- NOTE | 2017-11-08 17:01 | EKG ---
Test Reason : TIMED Blood Pressure : / mmHG Vent. Rate : 061 BPM Atrial Rate : 061 BPM P-R Int : 186 ms QRS Dur : 088 ms QT Int : 426 ms P-R-T Axes : 050 068 067 degrees QTc Int : 428 ms Normal sinus rhythm Normal ECG When compared with ECG of 26-JUN-2011 06:42, Left posterior fascicular block is no longer Present Nonspecific T wave abnormality no longer evident in Lateral leads Confirmed by DR. Syd DUENAS ([id number]) on 11/08/2017 5:01:14 PM Referred By: TALIA Confirmed By:DR. ySd DUENAS
--- NOTE | 2017-11-08 17:08 | NM ---
CARDIAC SPECT: 11/08/17 HISTORY: 67-year-old male with chest pain, peripheral artery disease, hypertension. TECHNIQUE: A myocardial perfusion scan was performed using a single isotope one day protocol with technetium 99m Sestamibi. 10 millicuries was injected intravenously for the rest exam f ollowed by 30 millicuries for the stress study. FINDINGS: No fixed or reversible defects are seen. There is an inferior wall defect on the rest images but not seen on the post stress attenuation corrected images. GATED SPECT LVEF: 68%. WALL MOTION EXAM: Normal. IMPRESSION: Normal myocardial perfusion scan. POS: [facility]
[2017-11-08] MEDS: Clindamycin 150 MG CAP PO SCH ×2 (17:51→17:52)
--- NOTE | 2017-11-08 18:32 | CON ---
DATE OF CONSULTATION: 11/08/2017 HISTORY OF PRESENT ILLNESS: This is a 67-year-old gentleman with presentation of right hand clumsine ss and unsteadiness on his legs. He had no speech difficulty. He had a previous left carotid endart erectomy a number of years ago and has been on medication since that time. [facility] on the dorsum of his foot related to an injury. His workup has included an MRI sh owing some lacunar infarcts. He has also had a CT angiogram of the head and neck demonstrating a nor mal left internal carotid artery post-endarterectomy and about a 60% right internal carotid artery st enosis. A stress test was done and results are pending. Cardiovascular risk factors include hyperte nsion, peripheral arterial disease and chronic kidney disease. Past surgical history includes aortob ifemoral bypass in 2009 for an occluded aorta with ischemic rest pain in his feet. He subsequently h ad a left carotid endarterectomy for an asymptomatic high grade stenosis. Followup has been minimal since 2013. The patient gets around with a cane, but can walk about a block without any difficulties and he denies any ischemic rest pain in his feet. He previously was on statin therapy and enalapril ; however, these were changed to amlodipine and atorvastatin. He was also completing an antibiotic c ourse for his cellulitis of clindamycin. He was also taking an aspirin daily. ALLERGIES: He has no known allergies. PHYSICAL EXAMINATION: GENERAL: He is an alert, cooperative gentleman in no distress. NECK: Healed left neck incision with no bruits. LUNGS: Clear to auscultation. CARDIAC: Regular rate and rhythm. No murmurs. ABDOMEN: Soft, nontender. EXTREMITIES: He has palpable femoral pulses bilaterally as well as a palpable right dorsalis pedis p ulse. He has no palpable pedal pulses in his left foot. He has a resolving injury to the dorsum of his right foot. NEUROLOGIC: Strength is fairly normal in his right hand, although he states his range of motion is s omewhat limited. Speech seems mildly abnormal, but he states that it is normal. Lower extremity str ength is normal. ASSESSMENT AND PLAN: I would not recommend surgical intervention for an asymptomatic 60% right inter nal carotid artery stenosis. I will follow up with him in 6 months with a carotid ultrasound and jessica santana agree with treatment of his blood pressure, cholesterol elevation and antiplatelet drugs.
--- NOTE | 2017-11-08 20:27 | DIS-2 ---
DATE OF ADMISSION: 11/07/2017 DATE OF DISCHARGE: 11/08/2017 RESIDENT: Henry Tijerina DO ADMITTING ATTENDING: Gage Ornelas M.D. DISCHARGE ATTENDING: Riley Mendez MD CONSULTATIONS: Jared Patton M.D., CV Surgery. PROCEDURES: MRI brain, CTA head and neck, and Cardiolite stress test. PRIMARY DIAGNOSIS: Transient ischemic attack. SECONDARY DIAGNOSES: Lacunar infarcts, hypertension, peripheral artery disease, acute kidney injury, foot ulcer, and hypercalcemia. DISCHARGE MEDICATIONS: Amlodipine 5 mg p.o. daily, aspirin 81 mg p.o. daily, atorvastatin 40 mg p.o. daily, enalapril 5 mg p.o. daily, clindamycin 450 mg p.o. q.6 h. for 5 more days, diphenhydramine 25 mg p.o. q.6 h. p.r.n., and Tylenol 650 mg p.o. q.4 h. p.r.n. DISCONTINUED MEDICATIONS: None. HOSPITAL COURSE: The patient was admitted for concerns of both chest pain and a new onset right-hand ed discoordination. For the chest pain, initial troponin was indeterminate. Subsequent troponins we re negative. The patient had no concerning EKG changes. A stress test was conducted, which resulted in normal findings. Additionally, due to this new onset right-hand discoordination, a workup was do ne for TIA versus stroke. MRI brain showed old lacunar infarcts but was not concerning for new CVA. CTA neck showed a moderate right carotid stenosis. This was evaluated by Dr. Patton and was determin ed that at this time he was not a surgical candidate. The patient should follow up with Dr. Patton in 6 months. Additionally, while admitted, the patient's blood pressure was uncontrolled. He had rece ntly been started on Norvasc during his prior hospitalization. At home, he said that his blood press ure had been typically running in 150s systolic. He has been on enalapril in the past, tolerated wel l. Enalapril was restarted in addition to the Norvasc in an attempt to maintain or control his blood pressure. DISPOSITION: Stable. DISCHARGE INSTRUCTIONS: 1. Location: Home. 2. Diet: Heart healthy. 3. Activity: Ad johan. 4. Followup: [address] Patton and 1 week with PCP.
--- NOTE | 2017-11-09 11:19 | EKG ---
Test Reason : WEAKNESS Blood Pressure : / mmHG Vent. Rate : 092 BPM Atrial Rate : 092 BPM P-R Int : 170 ms QRS Dur : 094 ms QT Int : 372 ms P-R-T Axes : 065 067 050 degrees QTc Int : 460 ms Normal sinus rhythm Normal ECG Confirmed by JHONATHAN ROWLAND M.D. ([id number]), research editor RAMIRO PAREDES ([id number]) on 11/09/2017 11:18:25 AM Referred By: Confirmed By:JHONATHAN ROWLAND M.D.
== END 2017-11-08 18:11 | disposition home or self-care (01) | DRG 69 ==
LOC: ERS 11:55 → OBSVTOIN 15:24 → 2SW 15:24
PROVIDERS: ADMIT Family Medicine; ATTEND Family Medicine
PROC: B030ZZZ Magnetic Resonance Imaging (MRI) of Brain (ICD-10-PCS; principal; 2017-11-07)
PROC: 4A02XM4 Measurement of Cardiac Total Activity, External Approach (ICD-10-PCS; 2017-11-08)
DX: G45.9 Transient cerebral ischemic attack, unspecified (principal); N17.9 Acute kidney failure, unspecified; L97.519 Non-pressure chronic ulcer of other part of right foot with unspecified severity; E83.52 Hypercalcemia; L03.119 Cellulitis of unspecified part of limb; N18.3 Chronic kidney disease, stage 3 (moderate); I65.21 Occlusion and stenosis of right carotid artery; I12.9 Hypertensive chronic kidney disease with stage 1 through stage 4 chronic kidney disease, or unspecified chronic kidney disease; I73.9 Peripheral vascular disease, unspecified; R07.89 Other chest pain; R74.8 Abnormal levels of other serum enzymes; Z79.82 Long term (current) use of aspirin; Z87.891 Personal history of nicotine dependence
CPT/HCPCS: 0042T; 36415; 70496; 70498; 70553; 71010; 78452; 80053; 80061; 82553; 83735; 84100; 84484; 85025; 93005; 93010; 93017; 94760; A9500; J0153

== ENCOUNTER 2019-05-13 02:20 | Inpatient (IN) | payer MEDICARE, MEDICAID ==
[2019-05-13] MEDS ORDERED: Piperacillin/Tazobactam 4.5 GM VIAL ONE (02:41)
[2019-05-13 02:57] LABS: #Eosinphils 0.1 thou/uL (0.0-0.7); #Monocytes 0.6 thou/uL (0.11-0.59); #Neutrophils 10.9 thou/uL (1.40-6.50); %Basophils 0.2 % (0.0-1.0); %Eosinophils 0.7 % (0.0-10.0); %Lymphocytes 7.7 % (21.0-51.0); %Monocytes 4.9 % (0.0-10.0); %Neutrophils 86.5 % (42.0-75.0); Hemoglobin 14.2 g/dL (14.0-18.0); Mean Corpuscular Hemoglobin 32.1 pg (27.0-31.0); Mean Corpuscular Volume 94.3 fL (78.0-98.0); Mean Platelet Volume 5.9 fL (7.4-10.4); Platelet Count 253 thou/uL (130-400); RBC Distribution Width 11.1 % (11.5-14.5); Red Blood Cell (RBC) Count 4.41 mill/uL (4.70-6.10); White Blood Cell (WBC) Count 12.6 thou/uL (4.8-10.8)
[2019-05-13 03:04] LABS: Actual Bicarbonate (HCO3a) 19.1 mEq/L (22-28); Analyzer IN Cardio ER; Base Excess (BEa) -3.1 mEq/L (-2.0 to +3.0); CO2 Tension 27.3 mmHg (35.0-45.0); Calcium, Ionized 1.14 mmol/L (1.12-1.30); Carboxyhemoglobin (COHb) 0.9 gm% (0.0-3.0); Hemoglobin (Hb) 14.4 g/dL (14.0-18.0); Potassium - ABG Lab 3.35 mmol/L (3.70-5.30); pH, Arterial 7.46 (7.35-7.45)
[2019-05-13 03:09] LABS: ALV-art Gradient 164.155 (0-20); O2 Tension (PaO2) 58.4 mmHg (> 80.0); Puncture Site RRA
[2019-05-13 03:19] LABS: ALT (SGPT) 10 U/L (8-55); AST (SGOT) 17 U/L (5-34); Albumin 3.6 g/dL (3.4-4.8); Alkaline Phosphatase 72 U/L (40-150); Anion Gap 14 mmol/L (10-20); BUN (Urea Nitrogen) 21 mg/dL (8.4-25.7); Bilirubin, Total 0.7 mg/dL (0.2-1.2); Calc. Creatinine Clearance 0 mL/min (70-130); Calcium 9.2 mg/dL (7.8-10.44); Carbon Dioxide 19 mmol/L (23-31); Chloride 101 mmol/L (98-107); Estimated GFR-MDRD 46; Globulin 3.8 g/dL (2.4-3.5); Glucose 120 mg/dL (80-115); Potassium 3.4 mmol/L (3.5-5.1); Protein, Total 7.4 g/dL (5.8-8.1); Sodium 131 mmol/L (136-145)
[2019-05-13 06:51] LABS: Bilirubin Negative (Negative); Blood, Urine Negative (Negative); Clarity Clear (Clear); Glucose, Urine (Dipstick) Normal (Negative); Leukocyte Negative Leu/uL (Negative); Nitrite Negative (Negative); Protein, Urine (Dipstick) Negative (Neg-Trace); Urobilinogen Normal mg/dL (Less than 2)
--- NOTE | 2019-05-13 08:09 | CT ---
PRELIMINARY REPORT/[facility]/EMERGENCY AFTER HOURS PROCEDURE: EXAM: CT Angiography Chest With Contrast EXAM DATE/TIME: 05/13/2019 3:28 AM CLINICAL HISTORY: 68 years old, male; Dyspnea and shortness of breath; Patient HX: M68 presents to ED C/O SOB and mucus buildup x2.5 wks. PT reports associated chest pain. SOB exacerbated by laying down, and relieved by sitting up. TECHNIQUE: Imaging protocol: Axial computed tomographic angiography images of the chest with intravenous contras t using CT angiography protocol. 3D rendering: MIP reconstructed images were created and reviewed. COMPARISON: No relevant prior studies available. FINDINGS: Pulmonary arteries: No evidence of pulmonary embolism. Mild pulmonary artery enlargement suggestive o f pulmonary hypertension. Aorta: Atherosclerotic calcifications of the aorta and branches including irregular proximal left sub clavian artery plaque. No aortic aneurysm or dissection. Lungs: Centrilobular and paraseptal emphysema. Bilateral diffuse groundglass opacities, septal and pe ribronchial thickening. Bilateral scattered calcified granulomas. No mass. No focal consolidation. Pleural space: No pneumothorax. No pleural effusion. Heart: Mild cardiomegaly. Coronary calcifications. No pericardial effusion. Lymph nodes: No significant adenopathy. Bones/joints: No acute fracture. Soft tissues: No acute findings. IMPRESSION: No evidence of pulmonary embolism. Emphysema. Bilateral groundglass opacities, septal and peribronchial thickening could relate to infec tion/inflammation, COPD exacerbation, pneumonitis, edema. Mild cardiomegaly. Coronary calcifications. Other findings above. Thank you for allowing us to participate in the care of your patient. Dictated and Authenticated by: Thor Guerrier MD 05/13/2019 4:32 AM Central Time ([place] & [place]) FINAL REPORT CT ANGIGORAM OF CHEST: Date: 05/13/19 HISTORY: Shortness of breath. Mucus buildup, x2.5 weeks. Chest pain. COMPARISON: None. TECHNIQUE: CT angiogram of chest is performed in the axial plane. Three-dimensional reformatted images are submi tted for interpretation. FINDINGS: Adequate contrast opacification of the pulmonary arterial system to the level of the segmental arteri es. No filling defect to suggest thromboembolism. Atherosclerosis of a nonaneurysmal aorta. There are diffuse ground-glass opacities with associated septal thickening. Correlate for edema. There is evid ence of centrilobular and paraseptal emphysema. No focal consolidation, pneumothorax, or pleural effu suraj. IMPRESSION: This report is in agreement with the preliminary report by [facility]. No evidence of pulmonary artery embo lism to the level of the segmental arteries. Additional details as detailed in the preliminary report by [facility]. POS: ISAAK
--- NOTE | 2019-05-13 08:38 | RAD ---
CHEST 1 VIEW: COMPARISON: 11/07/2017. HISTORY: Shortness of breath. FINDINGS: Atherosclerosis of the aorta. Normal cardiac silhouette. There are diffuse interstitial and alveola r opacities. Lungs are hyperinflated. No pneumothorax or osseous abnormalities. IMPRESSION: 1. Diffuse interstitial and alveolar opacities which are presumed to be chronic change. Correlate f or edema or infiltrate. 2. Atherosclerosis. POS: ISAAK
[2019-05-13] MEDS ORDERED: Acetaminophen 325 MG TAB PO PRN (09:03)
[2019-05-13] MEDS ORDERED: diphenhydrAMINE 25 MG CAP PO PRN (09:04)
[2019-05-13] MEDS ORDERED: Iopamidol 370 76% 100 ML VIAL ONE (09:15)
[2019-05-13] MEDS ORDERED: Enoxaparin Sodium 40 MG/0.4 ML SYRINGE SC SCH (09:15)
--- NOTE | 2019-05-13 10:16 | HP ---
CHIEF COMPLAINT: Shortness of breath. HISTORY OF PRESENT ILLNESS: This patient is a 68-year-old male, who presented via the emergency department. The patient was reporting shortness of breath for about 2-1/2 weeks, has some chest congestion and cough. Cough is productive of a brownish discolored sputum. The patient has been trying some ijiu-hdt-ujscloh medications including things like Mucinex, in fact yesterday he bought a Primatene Mist inhaler and used it several times before coming to the hospital. The patient also reports that he has been having central chest pressure that feels like someone was standing on his chest. He reports that it only occurs when he is up and around and rest and rest to recover, but once he has recovered, the pain is no longer present. He does report that he had some fever today, but did not have any at home that he was aware of. REVIEW OF SYSTEMS: The patient has the above-mentioned chest pain and shortness of breath. All other systems were reviewed. All pertinent positives and negatives noted in the history of present illness. PAST MEDICAL HISTORY: Notable for hypertension, hyperlipidemia, it sounds like he has had an aortobifemoral bypass, suggesting peripheral vascular disease. Of note, the patient did have a negative stress test in 2017. PAST SURGICAL HISTORY: Aortobifemoral [place] [address] Patton, carotid endarterectomy on the left, and right eye laser surgery. FAMILY HISTORY: Mother had pancreatic cancer, in her 70s. Father in his 70s of an [place]. SOCIAL HISTORY: The patient has modest alcohol with a couple of mixed drinks per week. He quit smoking in 2010, but has a 48-ssvv-qonb history. Denies tobacco. He is a full code. His brother would be his surrogate decision maker. ALLERGIES: NONE. HOME MEDICATIONS: 1. Aspirin 81 mg daily. 2. Amlodipine 5 mg daily. 3. Tylenol 650 q.4 hours p.r.n. 4. Diphenhydramine 25 q.6 p.r.n. 5. Fish oil 1000 mg one p.o. b.i.d. 6. Enalapril 5 mg daily. PHYSICAL EXAMINATION: VITAL SIGNS: O2 saturation 95% on 3 L nasal cannula, pulse 79, and blood pressure is 95/64. GENERAL APPEARANCE: Age-appropriate male, in no distress. He is awake, alert, oriented, pleasant, and cooperative. HEENT: PERRL. No OP lesions. NECK: Supple and symmetric without lymphadenopathy, JVD, or bruits. HEART: Regular rate and rhythm without murmurs, gallops, or rubs. LUNGS: Bibasilar fine rales with no wheezes, slightly diminished throughout. ABDOMEN: Soft, nontender, and nondistended. Positive bowel sounds. No masses. No organomegaly. EXTREMITIES: No cyanosis, clubbing, or edema. Pulses are present in the feet. NEUROLOGIC: The patient is intact with no deficits of the cranial nerves. Spontaneous movement of all extremities. PSYCH: Normal affect and behavior. LABORATORY DATA: White count 12.6, hemoglobin 14.2, and platelets 253. Sodium 131, potassium 3.4, chloride 101, CO2 of 19, BUN 21, creatinine is 1.51, and glucose 120. Urinalysis negative. Flu screen negative. ABG; pH of 7.46, pCO2 of 27, and pO2 of 58.4. IMAGING DATA: Chest x-ray, diffuse interstitial and alveolar opacities, presumed to be more chronic and atherosclerosis is also noted. CTA of the chest, no evidence PE. There is bilateral ground-glass opacities, some peribronchial thickening potentially reflective of infection or inflammation, COPD exacerbation, pneumonitis, edema, mild cardiomegaly, coronary calcifications. IMPRESSION AND PLAN: 1. Acute hypoxic respiratory failure. The patient's oxygen saturations even now are in the 80s as he tries to get up and move around, even on 3 L of oxygen. It appears to be due to chronic obstructive pulmonary disease with some infectious component. We will give supplemental oxygen. 2. Bronchitis versus early pneumonia based on the CT scan. The patient has some evidence of inflammatory changes consistent with potential infection. We will keep him covered with Zosyn. 3. Chronic obstructive pulmonary disease. The patient has a history of 40 pack years of smoking and likely has significant chronic obstructive pulmonary disease component. We will cover with nebulizer treatments and given him a short course of steroids. Consult Pulmonology. 4. Hypotension. The patient had systolics in the 80s in the emergency department, appears to be back to better numbers now after some hydration. I will need to continue to monitor to determine if he will need to stay on his antihypertensives or not. 5. Hyperlipidemia. Continue with his home medical regimen. 6. Chronic kidney disease, stage 3. Currently, renal function is pretty close to baseline. 7. Mild hyponatremia. The patient has had similar readings in the past, although not consistently. We will continue to monitor with treatment. Job ID: [id number]
[2019-05-13 10:28] LABS: Troponin I 0.215 ng/mL (< 0.028)
[2019-05-13] MEDS: methylPREDNISolone Sod Succ 40 MG VIAL IVP SCH ×3 (10:28→20:54)
[2019-05-13] MEDS: Piperacillin/Tazobactam 3.375 GM in Sodium Chloride 0.9% 100 ML IVPB SCH ×3 (10:28→20:54)
--- NOTE | 2019-05-13 18:53 | PDOC.EVN ---
Event Note - Event Note Event Note: Pt admitted this AM - reports he is feeling better. Had some abd/chest discomfort with eating earlier that has resolved. Exam: Gen - alert, responsive in NAD speaking in 4-5 word phrases lungs- fair air movement, scattered rhonchi heart -distant heart sounds abd soft +BS Imp: COPD with exacerbation - improved subjectively but still working hard to breathe - add pulmicort and brovana - continue abx and steroids Hypokalemia - replace potassium CKD - stable, monitor renal function Abd discomfort - may be secondary to steroids - add PPI HTN - reviewed meds and added hold parameters on both the ETHAN-I and [facility] reviewed plan of care with patient, no questions or further needs at end of eval
[2019-05-13] MEDS ORDERED: Potassium Chloride 20 MEQ TAB PO SCH (19:00)
[2019-05-14] MEDS ORDERED: Morphine 4 MG/ML VIAL ONE (02:10)
[2019-05-14] MEDS ORDERED: Nitroglycerin 0.4 MG TAB (25 Tab Bottle) ONE (02:18)
[2019-05-14] MEDS ORDERED: Nitroglycerin 0.4 MG TAB (25 Tab Bottle) SL PRN ×2 (02:23→03:45)
[2019-05-14 02:27] LABS: #Lymphocytes 0.7 thou/uL (1.20-3.40); #Monocytes 0.1 thou/uL (0.11-0.59); #Neutrophils 7.2 thou/uL (1.40-6.50); %Basophils 0.1 % (0.0-1.0); %Eosinophils 0.1 % (0.0-10.0); %Lymphocytes 8.4 % (21.0-51.0); %Monocytes 1.5 % (0.0-10.0); %Neutrophils 89.8 % (42.0-75.0); Mean Corpuscular HGB CONC 34.1 g/dL (32.0-36.0); Mean Corpuscular Hemoglobin 32.5 pg (27.0-31.0); Mean Corpuscular Volume 95.3 fL (78.0-98.0); Mean Platelet Volume 6.2 fL (7.4-10.4); Platelet Count 306 thou/uL (130-400); RBC Distribution Width 11.3 % (11.5-14.5); Red Blood Cell (RBC) Count 4.91 mill/uL (4.70-6.10)
[2019-05-14] MEDS ORDERED: Furosemide 40 MG/4 ML VIAL ONE (02:28)
[2019-05-14] MEDS ORDERED: Sodium Chloride 0.9% 1,000 ML IV SCH (02:30)
[2019-05-14] MEDS ORDERED: Morphine 2 MG/ML SYRINGE SLOW IVP SCH (02:30)
[2019-05-14] MEDS ORDERED: Furosemide 40 MG/4 ML VIAL SLOW IVP SCH (02:45)
[2019-05-14 02:51] LABS: Anion Gap 18 mmol/L (10-20); BUN (Urea Nitrogen) 18 mg/dL (8.4-25.7); Calc. Creatinine Clearance 53 mL/min (70-130); Calcium 10.2 mg/dL (7.8-10.44); Carbon Dioxide 14 mmol/L (23-31); Chloride 107 mmol/L (98-107); Estimated GFR-MDRD 57; Glucose 161 mg/dL (80-115); Potassium 3.8 mmol/L (3.5-5.1); Sodium 135 mmol/L (136-145)
[2019-05-14] MEDS ORDERED: Lidocaine 1% (PF) 30 ML VIAL ONE (02:54)
[2019-05-14 03:09] LABS: CKMB 4.8 ng/mL (0-6.6)
--- NOTE | 2019-05-14 03:17 | CON ---
DATE OF CONSULTATION: 05/13/2019 HISTORY OF PRESENT ILLNESS: Mr. Barroso is a 68-year-old male who presented with complaints of cough and chest congestion for the past couple of weeks. He is taking yxpe-tjj-kbisxnj medicines and subsequently felt he could not handle it anymore and presented to the emergency room. He says he feels much better than he did when he arrived in the emergency room. He denies fever, chills or sweats. He has had no hemoptysis. He reportedly had some relief from using a Primatene inhaler. PAST MEDICAL HISTORY: Remarkable for: 1. Hypertension. 2. Lipid disorder. 3. History of an open aortobifem bypass by Dr. Patton. Says he quit smoking at the time of his surgery. 4. History of negative stress test in 2017. 5. History of left carotid endarterectomy. 6. History of right eye laser surgery. FAMILY HISTORY: Positive for vascular disease and cancer. SOCIAL HISTORY: He does not drink every day. Quit smoking when he had his surgery in 2009, was a 1-2 pack-a-day smoker prior to that. He does not use drugs. ALLERGIES: REPORTS NO DRUG ALLERGIES. MEDICATIONS: Prior to admission have been reviewed. FAMILY HISTORY: Negative for lung disease in early age. REVIEW OF SYSTEMS: 10 point review of systems completed, otherwise negative. PHYSICAL EXAMINATION: GENERAL: He is in no distress. VITAL SIGNS: He is afebrile. Heart rate is in 80s, blood pressure 116/74, respiratory rates in the high 20s. HEENT: Pupils are equal. Sclerae anicteric. Extraocular movements appear full. NECK: Supple. No lymphadenopathy. LUNGS: Clear with exception of end-expiratory wheezes. HEART: Regular rhythm. S1 and S2 are normal. ABDOMEN: Soft and nontender. EXTREMITIES: Without clubbing, cyanosis, or edema. DIAGNOSTIC STUDIES: CT angiogram was done in the emergency department and showed no pulmonary emboli. He did have a diffuse increase in interstitial markings. He does have cystic and bullous changes bilaterally. IMPRESSION: 1. Chronic obstructive pulmonary disease exacerbation, clinically improving. 2. ? Component of cardiogenic pulmonary edema. I doubt all his CT scan findings are related to a bacterial process. He also could in theory have some underlying interstitial lung disease. 3. Ordered an echocardiogram and we will continue to follow the other physicians while he is here. Echocardiogram shows a normal ejection fraction, but does show diastolic dysfunction. 4. We will re-evaluate him tomorrow. Continue to follow him while he is in the hospital. This is a 50 minute consult, with greater than 50% of time spent on unit coordinating care. Job ID: [id number] MTDD
[2019-05-14] MEDS ORDERED: Midazolam HCl 2 mg/2 ml Vial ONE ×2 (03:20→08:57)
[2019-05-14] MEDS ORDERED: Fentanyl 100 MCG/2 ML VIAL ONE (03:20)
[2019-05-14] MEDS ORDERED: Heparin 10,000 UNITS/1 ML VIAL ONE (03:35)
[2019-05-14] MEDS ORDERED: Heparin 25,000 units/D5W 0 ML ONE (03:41)
--- NOTE | 2019-05-14 03:42 | CON ---
DATE OF CONSULTATION: REASON FOR CONSULTATION: Severe chest pain and EKG changes. HISTORY OF PRESENT ILLNESS: Mr. Barroso is a 68-year-old gentleman with previous history of aortobifemoral bypass, who recently presented with sepsis and febrile illness. He has not had fever while he has been in the hospital. He has had cough, congestion. He has had 2 episodes of acute onset chest pain. They were severe in nature. He initially required BiPAP. He is now on a non-rebreather. He did have ST-segment elevation noted inferiorly, but when compared to EKG done one day prior minimal changes present. PAST MEDICAL HISTORY: He had a bifemoral bypass, carotid disease, hypertension, hyperlipidemia, laser surgery, right eye. FAMILY HISTORY: Negative for CAD. SOCIAL HISTORY: Positive alcohol use. No current tobacco use. ALLERGIES: NONE. MEDICATIONS: Include; 1. Amlodipine. 2. Aspirin. 3. Diphenhydramine. 4. Fish oil. 5. Enalapril. REVIEW OF SYSTEMS: A 10-point review of systems is reviewed as above, otherwise negative. PHYSICAL EXAMINATION: GENERAL: Patient is a pleasant male who is in no acute distress. The patient appears their stated age. VITAL SIGNS: Blood pressure 108/69, pulse 80, respirations 20. NEUROLOGIC: The patient is alert and oriented x3 with no focal neurologic deficits. HEENT: Sclerae without icterus. Mouth has moist mucous membranes with normal pallor. NECK: No JVD. Carotid upstroke brisk. No bruits bilaterally. LUNGS: Minimal crackles noted bilaterally. BACK: No scoliosis or kyphosis. CARDIAC: Regular rate and rhythm with normal S1 and S2. No S3 or S4 noted. No significant rubs, murmurs, thrills, or gallops noted throughout the precordium. PMI is not displaced. There is no parasternal heave. ABDOMEN: Soft, nontender, nondistended. No peritoneal signs present. No hepatosplenomegaly. No abnormal striae. EXTREMITIES: 2+ femoral and 2+ dorsalis pedis pulses. No cyanosis, clubbing, or edema. SKIN: No gross abnormalities. LABORATORY DATA: Echo Doppler showed normal LVEF. Creatinine 1.27. Troponin 0.134. IMPRESSION: 1. Recurrent severe chest pain. 2. EKG changes. 3. Peripheral arterial disease. RECOMMENDATIONS: Mr. Barroso appears better, although is requiring a non- rebreather for oxygen supplementation. Given his EKG changes and 2 episodes of severe pain , I would recommend urgent coronary angiography and possible PCI. Discussed the procedure in full detail with Mr. Barroso. Risks included but not limited to the following: , stroke, NH, need for emergency surgery, loss of limb, bleeding, and infection, as well as a reaction to the dye causing kidney failure and needing long-term dialysis. I also discussed the risks of PCI to include all of the above including coronary dissection and perforation in addition to acute stent thrombosis and restenosis. All questions about the procedure were answered. Given the above, the patient agreed to proceed with coronary angiography and possible PCI. All questions were answered. Also discussed drug-coated versus nondrug-coated stent placement. There are no contraindications. We will proceed if needed. Further recommendations pending the above. Job ID: [id number] MTDD
[2019-05-14] MEDS ORDERED: Acetaminophen/Codeine 30-300mg Tablet PO PRN ×2 (03:45)
[2019-05-14] MEDS ORDERED: Sodium Chloride 0.9% 200 ML IV PRN (03:45)
[2019-05-14] MEDS ORDERED: Heparin 10,000 UNITS/ 10 ML VIAL SLOW IVP SCH (04:00)
[2019-05-14] MEDS: Piperacillin/Tazobactam 3.375 GM in Sodium Chloride 0.9% 100 ML IVPB SCH ×4 (04:47→20:17)
[2019-05-14] MEDS: methylPREDNISolone Sod Succ 40 MG VIAL IVP SCH ×2 (04:48→10:00)
[2019-05-14] MEDS: Sodium Chloride 0.9% 1,000 ML IV SCH ×3 (04:48→14:21)
[2019-05-14 05:47] LABS: Hemoglobin 14.2 g/dL (14.0-18.0); Platelet Count 253 thou/uL (130-400)
[2019-05-14] MEDS ORDERED: Heparin 25,000 units/D5W 500 ML IVPB SCH (06:00)
[2019-05-14] MEDS: Arformoterol 15 MCG/2 ML NEB NEB SCH ×2 (06:34→18:34)
[2019-05-14] MEDS: Budesonide 0.5 MG/2 ML NEB INH SCH ×2 (06:34→18:33)
[2019-05-14] MEDS ORDERED: Communication Order-Pharmacy FS SCH (07:47)
--- NOTE | 2019-05-14 07:55 | RAD ---
RADIOGRAPH CHEST 1 VIEW: DATE: 05/14/2019 TIME: 2:09 AM HISTORY: 68-year-old male with chest pain and respiratory distress COMPARISON: 05/13/2019 FINDINGS: There is interval worsening of now diffuse bilateral interstitial infiltrates, greatest at the lower lung zones. Ectasia and tortuosity of thoracic aorta. No pneumothorax. Lateral costophrenic angles are sharp. IMPRESSION: Interval worsening of pulmonary interstitial edema.
[2019-05-14] MEDS ORDERED: Labetalol HCl 100 MG/20 ML VIAL ONE ×2 (08:17→08:57)
[2019-05-14] MEDS ORDERED: Albumin 5% 500 ML ONE (08:24)
[2019-05-14] MEDS ORDERED: Labetalol HCl 100 MG/20 ML VIAL SLOW IVP SCH (08:30)
[2019-05-14] MEDS ORDERED: Heparin 10,000 UNITS/1 ML VIAL 30,000 UNITS in Sodium Chloride 0.9% 1,000 ML FS SCH (08:45)
--- NOTE | 2019-05-14 08:46 | PRG ---
DATE OF SERVICE: 05/14/2019 SUBJECTIVE: This morning, he is awake, alert, responsive. He is going for coronary artery bypass surgery. OBJECTIVE: VITAL SIGNS: His saturations are 100% on BiPAP, his temperature is 97, respirations 22, and blood pressure 120/80. GENERAL: He is awake, alert, and responsive. Denies any pain or discomfort. CHEST: Decreased breath sounds. No wheezing. CARDIAC: Normal S1 and S2. No gallops. ABDOMEN: No masses. DIAGNOSTIC DATA: His lytes are normal. Creatinine is 1.27. White count unremarkable. Chest x-ray shows diffuse interstitial infiltrate. ASSESSMENT: 1. Chronic obstructive pulmonary disease. 2. Congestive heart failure. 3. Coronary artery disease. PLAN: Pulmonary-mittal, continue neb treatments, supportive care, empiric antibiotics. We will wean post CABG. Job ID: [id number]
[2019-05-14] MEDS ORDERED: Amlodipine 5 MG TAB PO SCH ×2 (09:00)
[2019-05-14] MEDS ORDERED: Enoxaparin Sodium 40 MG/0.4 ML SYRINGE SC SCH (09:00)
[2019-05-14] MEDS ORDERED: Aspirin 81 mg Enteric Coated Tablet PO SCH (09:00)
[2019-05-14] MEDS ORDERED: Iopamidol 370 76% 50 ML VIAL FS ONE (09:04)
[2019-05-14] MEDS ORDERED: Iopamidol 370 76% 100 ML VIAL ONE (09:04)
[2019-05-14] MEDS ORDERED: Fentanyl 250 MCG/5 ML VIAL ONE (09:11)
[2019-05-14] MEDS ORDERED: Midazolam HCl 5 mg/5 ml Vial ONE (09:12)
[2019-05-14] MEDS ORDERED: Dexmedetomidine 200 MCG/2 ML VIAL ONE ×2 (09:12→10:58)
--- NOTE | 2019-05-14 11:37 | CON ---
DATE OF CONSULTATION: 05/14/2019 REQUESTING PHYSICIAN: Julián Erickson MD PRIMARY CARE PHYSICIAN: Karthikeyan Peace MD CHIEF COMPLAINT: Shortness of breath and chest pain. HISTORY OF PRESENT ILLNESS: The patient is a 68-year-old former smoker with a known history of vascular disease, having undergone an aortobifemoral bypass procedure in 2009 and left carotid endarterectomy in 2010. The patient reports about a 2 or 3-week history of cough that has been productive of sputum of rather varying characters, mostly whitish. He described his presentation here as being due to mucus congestion, but upon questioning, he said that he was markedly short of breath and now is associated with some chest discomfort. He had, had a few less severe episodes like that leading up to his decision to go to the hospital. In the emergency room, a history of greenish sputum was elicited and that in conjunction with his chest x-ray appearance and marginal oxygenation. Presumptive diagnosis of pneumonia was made and he was started on antibiotics. During the course of the day, however, following admission from the emergency room, he had repeat episodes of chest pain and shortness of breath. While the shortness of breath was fairly severe, his chest pain had a more prominent component and late last night, he had a severe enough episode to prompt urgent cardiac catheterization that demonstrated severe three-vessel coronary artery disease, but normal LV function. The patient is currently requiring BiPAP mask, although his O2 sats on nasal cannula oxygen have consistently been in the low to mid 90s. He has at times become quite tachypneic with respiratory rates approaching 40. On BiPAP mask, his O2 saturations are 100% and his respiratory rate is in the mid 20s. He is currently comfortable and seem stable. In speaking with Dr. Erickson, the episodes of chest pain seem to correlate with episodes of mildly elevated blood pressures. PAST MEDICAL HISTORY: Significant for hypertension, hyperlipidemia, peripheral vascular disease, and cerebral vascular disease. The patient underwent a 12 x 7 aortobifemoral bypass in February of 2010 and a left carotid endarterectomy in June of 2011. The patient reports having had a stroke about a year ago or perhaps two that affected his strength in his right arm and leg. He says that his right arm strength is back close to normal. His right leg strength is diminished just enough that he uses a walking stick more to maintain balance than truly for support. MEDICATIONS: Listed as; 1. Baby aspirin a day. 2. Norvasc 5 mg a day. 3. Enalapril (Vasotec) 5 mg a day. 4. He also takes fish oil. 5. P.r.n. Tylenol and Benadryl. SOCIAL HISTORY: The patient quit smoking around 10 years ago, but smoked about a pack and a half a day for 37 years prior to that. ALLERGIES: HE DENIES ANY MEDICAL ALLERGIES. FAMILY HISTORY: Significant for his father at age 51 with heart disease. His mother at age 55 with pancreatic cancer. REVIEW OF SYSTEMS: Negative for any antecedent shortness of breath or any fever. He walks with a little bit of a limp requiring a walking stick. He has not had any TIA symptoms since his stroke a year or 2 ago. PHYSICAL EXAMINATION: GENERAL: On exam, he is a thin man, reasonably comfortable, on heparin drip and BiPAP mask. VITAL SIGNS: He is 5 feet and 10 inches, weighs 144 pounds. Heart rate is 103, blood pressure 128/77, O2 saturations are 100%, and respiratory rate is in the mid 20s. He has put out around 1300 mL of urine in the last 5 hours since receiving Lasix. LUNGS: He has bilateral rales, worse on the right than on the left. HEART: Regular rate and rhythm without murmur. He has no JVD. No carotid bruits. He has a well-healed surgical scar parallel to the left sternocleidomastoid muscle consistent with his stated history of endarterectomy. ABDOMEN: Soft and nontender with a well-healed vertical midline incision and well-healed surgical scars in both groins consistent with his past history of aortobifemoral bypassing. EXTREMITIES: He has palpable radial and femoral pulses. His dorsalis pedis pulses are palpable, but somewhat diminished. He has no clubbing, cyanosis, or edema. He appears to have good quality but rather superficial vein. 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 LABORATORY DATA: His white count is 8.0, hemoglobin 16.0, hematocrit 46.8, and platelets 306,000. His chemistries shows sodium of 135, potassium 3.8, chloride 107, CO2 of 14, BUN 18, creatinine 1.27, glucose 161, and calcium is 10.2. His troponins have been 0.215, 0.210 and 0.134. His CK-MB earlier this morning was 4.8. He has not had a BNP this hospitalization. IMAGING DATA: His chest x-ray on initial appearance suggests probably right-sided infiltrates superimposed on prominent pleural markings associated with COPD, but going back to an x-ray from October of 2017 well after he quit smoking, his lung novak were reasonably normal in appearance. His cardiac catheterization shows a right-dominant system. He has serial right coronary lesions and a lesion more modest in his PDA. The most proximal of his RCA lesion is the subtotal lesion. He has a hazy 60% or 70% ostial LAD lesion and then a little bit beyond the first septal store manager in an LAD lesion that is around 70% or 80%. He has a first obtuse marginal that has a 70% or 80% lesion in it. LVEF was around 60%. EDPs were measured at 0 and at 8. IMPRESSION AND RECOMMENDATIONS: I suspect that his chest x-ray picture is more of pulmonary edema during his episodes of coronary ischemia rather than infection imbalance, although it would be nice to diurese him more clarify the issue of whether he has a pulmonary infection and treated the pattern of his chest pain and the severity of his coronary artery disease as such that I think he would probably be better served by expeditious coronary artery bypass grafting. Because of the holiday schedule, there is some question as to how this is going to get worked in the OR and they are trying to accommodate this. Job ID: [id number]
[2019-05-14] MEDS ORDERED: Phenylephrine HCL 10 MG/ML VIAL ONE ×3 (11:46→11:55)
[2019-05-14] MEDS ORDERED: Phenylephrine 1% Nasal Spray 15 ML BOT ONE (11:52)
[2019-05-14] MEDS ORDERED: hydrALAZINE 20 MG/ML VIAL SLOW IVP PRN (13:06)
[2019-05-14] MEDS ORDERED: Norepinephrine 8 MG/0.9% NS 250 ML IVPB PRN (13:06)
[2019-05-14] MEDS ORDERED: Acetaminophen 325 MG TAB PO PRN (13:06)
[2019-05-14] MEDS ORDERED: Guaifenesin DM 100-10/5 ML UDCUP PO PRN (13:06)
[2019-05-14] MEDS ORDERED: Morphine 4 MG/ML VIAL SLOW IVP PRN (13:06)
[2019-05-14] MEDS ORDERED: niCARdipine 25 MG in Sodium Chloride 0.9% 250 ML 240 ML IVPB PRN (13:06)
[2019-05-14] MEDS ORDERED: Bisacodyl 5 MG TAB PO PRN (13:06)
[2019-05-14] MEDS ORDERED: Fentanyl 100 MCG/2 ML VIAL SLOW IVP PRN (13:06)
[2019-05-14] MEDS ORDERED: Bisacodyl 10 MG SUPP PR PRN (13:06)
[2019-05-14] MEDS ORDERED: Nitroglycerin 50 MG/250 ML BOT 250 ML IVPB PRN (13:06)
[2019-05-14] MEDS ORDERED: Hetastarch 6% 500 ML 500 ML IVPB PRN (13:06)
[2019-05-14] MEDS ORDERED: Post-Op Insulin Drip Protocol IVPB ONE (13:06)
[2019-05-14] MEDS ORDERED: Promethazine HCl 25 MG/ML VIAL IM PRN (13:06)
[2019-05-14] MEDS ORDERED: Mag-Al 1200 mg/1200 mg/30 ML UDCUP PO PRN (13:06)
[2019-05-14] MEDS ORDERED: HUMULIN R 100 UNITS in Sodium Chloride 0.9% 100 ML IVPB SCH (13:18)
[2019-05-14] MEDS ORDERED: Insulin Regular 300 UNITS/3 ML VIAL SC PRN (13:18)
[2019-05-14] MEDS ORDERED: Dextrose 50% Abboject 50 ML SYRINGE SLOW IVP PRN (13:18)
[2019-05-14] MEDS ORDERED: Dextrose 5% in Water 1,000 ML IV PRN (13:18)
[2019-05-14 14:09] LABS: Actual Bicarbonate (HCO3a) 19.9 mEq/L (22-28); Base Excess (BEa) -6.5 mEq/L (-2.0 to +3.0); CO2 Tension 43.3 mmHg (35.0-45.0); Calcium, Ionized 1.15 mmol/L (1.12-1.30); Carboxyhemoglobin (COHb) 0.8 gm% (0.0-3.0); Hemoglobin (Hb) 12.7 g/dL (14.0-18.0); Potassium - ABG Lab 4.52 mmol/L (3.70-5.30); pH, Arterial 7.28 (7.35-7.45)
--- NOTE | 2019-05-14 14:11 | RAD ---
RADIOGRAPH CHEST 1 VIEW: DATE: 05/14/2019 TIME: 2:03 PM HISTORY: 68-year-old male status post open heart surgery. COMPARISON: 05/14/2019 2:09 AM. FINDINGS: No interval change in the diffuse bilateral interstitial infiltrates. New finding of silhouetting of the left hemidiaphragm. Median sternotomy wires, endotracheal tube with distal tip at mid thoracic trachea, lower mediastinal chest tubes, and right subclavian central line with distal tip overlying SVC/right atrial junction. No pneumothorax identified. However, supine positioning makes this relatively insensitive f or pneumothorax detection. IMPRESSION: 1. Immediately status post open heart surgery. 2. Interval development of mild atelectasis at base of left lower lobe. 3. No change in the diffuse bilateral interstitial infiltrates.
[2019-05-14 14:12] LABS: ALV-art Gradient 285.675 (0-20); Puncture Site ALINE
[2019-05-14 14:13] LABS: INR-International Normal Ratio 1.4; PTT 36.1 SEC (22.9-36.1)
[2019-05-14] MEDS: Ondansetron PF 4 MG/2 ML Vial IVP PRN (14:22)
[2019-05-14] MEDS: Fentanyl 100 MCG/2 ML VIAL SLOW IVP PRN ×2 (14:22→18:48)
--- NOTE | 2019-05-14 14:25 | PDOC.PN ---
- Subjective Encounter Start Date: 05/14/19 Encounter Start Time: 14:23 Patient seen and examined, no new issues. - Objective Resuscitation Status - Order Detail: 05/13/19 09:03 Resuscitation Status Routine Resuscitation Status: FULL: Full Resuscitation Vital Signs & Weight: Vital Signs (12 hours) Temp Pulse Resp BP Pulse Ox 05/14/19 14:09 101 H 90/42 L 05/14/19 09:00 89 05/14/19 08:30 89 05/14/19 08:20 116 H 05/14/19 07:54 100 05/14/19 07:00 97.7 F 05/14/19 06:35 89 100 05/14/19 06:32 98 22 H 100 05/14/19 04:30 100 05/14/19 04:07 96 05/14/19 04:00 97.6 F Weight Admit Weight 141 lb 1.533 oz Weight 144 lb Most Recent Monitor Data Heart Rate from ECG 109 NIBP 125/83 NIBP BP-Mean 97 Respiration from ECG 21 SpO2 100 I&O: 05/13/19 05/14/19 05/15/19 06:59 06:59 06:59 Intake Total 1153 Output Total 3995 320 Balance -2842 -320 Result Diagrams: 05/14/19 04:54 05/14/19 02:14 Additional Labs: Accuchecks 05/14/19 05/14/19 05/14/19 14:01 13:38 12:52 POC Glucose 184 H 179 H 164 H 05/14/19 05/14/19 05/14/19 12:11 11:36 10:44 POC Glucose 163 H 164 H 117 H 05/14/19 05/14/19 09:54 02:10 POC Glucose 120 H 146 H Phys Exam - Physical Examination Constitutional: NAD HEENT: PERRLA, moist MMs, sclera anicteric, 2+ tonsils Neck: no nodes, no JVD, supple Respiratory: no wheezing, no rales, no rhonchi Cardiovascular: RRR, no significant murmur, no rub Gastrointestinal: soft, non-tender Musculoskeletal: no edema, pulses present Dx/Plan (1) SOB (shortness of breath) Code(s): R06.02 - SHORTNESS OF BREATH Status: Acute (2) Chest pain Code(s): R07.9 - CHEST PAIN, UNSPECIFIED Status: Acute (3) Hypertensive urgency Code(s): I16.0 - HYPERTENSIVE URGENCY Status: Acute (4) PAD (peripheral artery disease) Code(s): I73.9 - PERIPHERAL VASCULAR DISEASE, UNSPECIFIED Status: Chronic - Plan * cath today * cont current plan otherwise with no changes * will adjust steroid dosage over hospital course * case and plan d/w pt at [facility], he understood and agreed with this plan.
[2019-05-14 14:30] LABS: Anion Gap 14 mmol/L (10-20); BUN (Urea Nitrogen) 16 mg/dL (8.4-25.7); Calc. Creatinine Clearance 60 mL/min (70-130); Calcium 8.1 mg/dL (7.8-10.44); Carbon Dioxide 19 mmol/L (23-31); Chloride 110 mmol/L (98-107); Estimated GFR-MDRD 66; Glucose 193 mg/dL (80-115); Potassium 4.6 mmol/L (3.5-5.1); Sodium 138 mmol/L (136-145)
[2019-05-14 14:40] LABS: Hemoglobin 12.1 g/dL (14.0-18.0); Mean Corpuscular HGB CONC 33.3 g/dL (32.0-36.0); Mean Corpuscular Volume 95.9 fL (78.0-98.0); Mean Platelet Volume 6.3 fL (7.4-10.4); Platelet Count 256 thou/uL (130-400); RBC Distribution Width 11.4 % (11.5-14.5); Red Blood Cell (RBC) Count 3.79 mill/uL (4.70-6.10); White Blood Cell (WBC) Count 45.2 thou/uL (4.8-10.8)
[2019-05-14 14:43] LABS: Band 6 % (5-11); Lymphocytes 3 % (21-51); MDiff Complete? YES; Monocytes 1 % (0-10); Neutrophil 90 % (42-75); Platelet Morphology Comment Appears Adequate
[2019-05-14] MEDS ORDERED: Norepinephrine 8 MG in Dextrose 5% in Water 242 ML IVPB PRN (15:18)
[2019-05-14] MEDS ORDERED: Lidocaine 2% PF 100 mg/5 ml Syringe ONE (15:26)
[2019-05-14] MEDS ORDERED: Rocuronium Bromide 10 MG/ML (10ML VIAL) ONE (15:26)
[2019-05-14] MEDS ORDERED: Heparin 30,000 units/30 ml VIAL ONE (15:26)
[2019-05-14] MEDS ORDERED: PROPOFOL 200 MG/20 ML VIAL ONE (15:26)
[2019-05-14] MEDS ORDERED: Dexamethasone 20 MG/5 ML VIAL ONE (15:26)
[2019-05-14] MEDS ORDERED: Thrombin 5000 UNITS/5 ML VIAL ONE (15:26)
[2019-05-14] MEDS ORDERED: Potassium Chloride 60 MEQ/30 ML VIAL ONE (15:26)
[2019-05-14] MEDS ORDERED: Mannitol 12.5 GM/50 ML ONE (15:26)
[2019-05-14] MEDS ORDERED: Protamine Sulfate 250 MG/25 ML VIAL ONE (15:26)
[2019-05-14] MEDS ORDERED: Calcium Chloride 1 GM/10 ML Abboject SYRINGE ONE (15:26)
[2019-05-14] MEDS ORDERED: Ondansetron PF 4 MG/2 ML Vial ONE (15:26)
[2019-05-14] MEDS ORDERED: Magnesium 5 GM/10 ML VIAL ONE (15:26)
[2019-05-14] MEDS ORDERED: Sodium Bicarb 50 MEQ/50 ML VIAL ONE (15:26)
[2019-05-14] MEDS ORDERED: Aminocaproic Acid 5 GM/20 ML VIAL ONE (15:26)
[2019-05-14] MEDS ORDERED: Papaverine 60 MG/2 ML VIAL ONE (15:26)
[2019-05-14] MEDS ORDERED: Vecuronium 10 MG VIAL ONE (15:26)
[2019-05-14] MEDS ORDERED: Cardioplegic Soln 1,000 ML BAG ONE (15:26)
[2019-05-14] MEDS ORDERED: PHENYLEPHRINE-NS 100 MCG/ML 10 ML SYRINGE ONE (15:26)
--- NOTE | 2019-05-14 16:23 | OP ---
DATE OF PROCEDURE: 05/14/2019 PROCEDURE PERFORMED: Urgent coronary artery bypass grafting x4 with left internal mammary artery to the distal left anterior descending, reverse greater saphenous vein graft from aorta to the first obtuse marginal, and sequential reverse greater saphenous vein graft from aorta to the posterolateral branch of the right coronary artery, to the distal posterior descending artery. PREOPERATIVE DIAGNOSES: Coronary artery disease with unstable angina and acute systolic heart failure. POSTOPERATIVE DIAGNOSES: Coronary artery disease with unstable angina and acute systolic heart failure. EQUALIZER OPERATOR: Randy. ANESTHESIA: General endotracheal anesthesia. INDICATIONS FOR PROCEDURE: The patient is a 68-year-old man with an extensive history of vascular disease, who presented with shortness of breath associated with some mild vague chest pain. He had pulmonary infiltrates initially suggestive of pneumonia, but during the course of the day he was admitted, he had several repeat episodes of shortness of breath and chest pain with the chest pain becoming more prominent feature. He was taken emergently to the [facility] and found to have severe 3-vessel coronary artery disease including an ostial LAD lesion and a subtotal right coronary lesion as well as significant disease in the mid LAD and circumflex system. He is now taken to the operating room for surgical revascularization. FINDINGS: Pump time 74 minutes. Cross-clamp time 41 minute. Good quality CANDACE and saphenous vein. The LAD was about a 2 mm vessel with diffuse hard plaque throughout its proximal and mid portion and some scattered plaque distally. The first obtuse marginal was about a 1.5 mm good quality vessel. The posterolateral branch in its midportion was about 2 mm good quality vessel, and the PDA distal to a focal plaque was about a 1.5 mm good quality vessel. The pericardium was closed. NARRATIVE REPORT: After informed consent was obtained, the patient was taken to the operating room, placed in supine position on the operating table. After the induction of general anesthesia, a greater saphenous vein in the patient's left lower extremity was ultrasonographically mapped and marked. The patient's right upper chest was prepped and draped in sterile fashion. He was placed in Trendelenburg, and a triple lumen central line kit was used to place a right subclavian central line. All 3 ports aspirated and flushed well. The line was secured. The patient's torso, groins, and lower extremities were then prepped and draped in sterile fashion. An incision was made just above the left knee medially exposing the greater saphenous vein. Using that as a port site, greater saphenous vein was harvested from groin to the upper calf. It was prepared for use as a graft. The port site was closed in layers of subcutaneous and subcuticular Vicryl. A median sternotomy was performed. Left internal mammary artery was mobilized as a skeletonized in-situ graft from the level of xiphoid to the level of the subclavian vein through an extrapleural exposure. The patient was heparinized. The mammary was ligated and divided distally. There was good flow through the mammary, which was instilled intraluminally with papaverine solution. The mammary bed was inspected for hemostasis. The medial reflections of the pleura from the apex to the hilum were mobilized. The CANDACE retractor was replaced with Rod retractor. The pericardium was opened and marsupialized. The aorta was palpated and was soft. A double concentric pursestring of 2-0 Ethibond was placed in ascending aorta just beyond the pericardial reflection, and a single pursestring was placed in the right atrial appendage. Aortic and venous cannulae were inserted and secured by their pursestrings. The plane between the aorta and the pulmonary artery was developed. An aortic cross-clamp was applied, and cardioplegia was administered through an aortic root needle. When arrest had been achieved, attention was turned to the distal right coronary system. The distal right proper and the proximal portion of the posterolateral branch were diffusely involved with hard plaque. Distally on the epicardial surface, the posterolateral branch appeared to be good quality. Plaque in the PDA was identified distally. Beyond that, the PDA was somewhat small but of good quality. The distal PDA was opened with a [place] blade and Per scissors, and reverse greater saphenous vein was anastomosed there end-to-side with running Prolene suture, and the anastomosis was tested by flushing cold cardioplegia down the graft. The posterolateral branch near where it emerged from the epicardial fat pad at its midportion was opened, and a [id number]-ag-[id number] anastomosis was constructed from the PDA graft to the posterolateral branch and tested in a similar fashion. Attention was then turned to the first obtuse marginal. It was opened and grafted end-to-side with saphenous vein. The LAD was opened just distal to a focal plaque. A brief attempt was made to use scissors to extend the arteriotomy across that plaque, but it was hard enough and eccentric enough, it was opted to abandon that attempt. The mammary was introduced into the pericardium through a slit made in it anterior to the left phrenic nerve. The mammary was anastomosed to the distal LAD with running 7-0 Prolene and then tacked to the epicardium. The aortic cross-clamp was replaced with a partial occluding clamp. Aortotomy was made in the ascending aorta with the scalpel and punch, incorporating the root needle site into the more distal aortotomy. The right coronary system graft was brought along the right side of the heart and anastomosed to the more proximal aortotomy, and the OM graft was anastomosed to the more distal aortotomy. The partial occluding clamp was removed, and the vein grafts were de-aired. The bulldogs were removed from them. The proximal anastomoses were marked with small hemoclip. The anastomoses were inspected for hemostasis. A posterior pericardial drain was brought out through a separate incision and secured with suture. Right atrial and right ventricular temporary epicardial pacing wires were placed. The patient was then easily from cardiopulmonary bypass. The aortic and venous cannulae were removed and the pursestring secured. Protamine was administered. When hemostasis was adequate, an anterior mediastinal drain was placed, and the pericardium was easily closed over with running Vicryl. Vancomycin paste and platelet-rich GPS were applied to the cut surfaces of the sternum, which was then reapproximated with a combination of simple and [id number]-yd-[id number] #7 stainless steel wires. The soft tissues of the sternotomy were then irrigated and treated with platelet-poor GPS. The fascia was closed over the wires with #1 Vicryl. Subcutaneous tissue was reapproximated with 2-0 Vicryl, and the skin was closed with running 3-0 Vicryl subcuticular suture. The wounds were dressed, and the patient was taken to the intensive care unit in stable condition. Job ID: [id number]
[2019-05-14] MEDS: Docusate 100 MG CAP PO SCH (20:18)
[2019-05-14] MEDS: Atorvastatin Calcium 40 MG TAB PO SCH (20:18)
[2019-05-14 20:23] LABS: Hemoglobin 10.2 g/dL (14.0-18.0)
[2019-05-14 20:35] LABS: Potassium 3.7 mmol/L (3.5-5.1)
[2019-05-14] MEDS ORDERED: Famotidine/PF 20 mg/2ml Vial SLOW IVP SCH (21:00)
[2019-05-14] MEDS: Potassium Chloride 20 MEQ/100 ML PREMIX BAG IVPB PRN (23:17)
[2019-05-15] MEDS: Piperacillin/Tazobactam 3.375 GM in Sodium Chloride 0.9% 100 ML IVPB SCH ×4 (03:25→21:12)
[2019-05-15] MEDS: Fentanyl 100 MCG/2 ML VIAL SLOW IVP PRN (03:26)
[2019-05-15] MEDS: Sodium Chloride 0.9% 1,000 ML IV SCH (03:26)
[2019-05-15 04:42] LABS: #Neutrophils 16.9 thou/uL (1.40-6.50); %Eosinophils 0.1 % (0.0-10.0); %Lymphocytes 5.2 % (21.0-51.0); %Monocytes 5.3 % (0.0-10.0); %Neutrophils 89.4 % (42.0-75.0); Hemoglobin 9.5 g/dL (14.0-18.0); Mean Corpuscular HGB CONC 33.3 g/dL (32.0-36.0); Mean Corpuscular Hemoglobin 32.2 pg (27.0-31.0); Mean Corpuscular Volume 96.8 fL (78.0-98.0); Mean Platelet Volume 6.5 fL (7.4-10.4); Platelet Count 215 thou/uL (130-400); RBC Distribution Width 11.4 % (11.5-14.5); Red Blood Cell (RBC) Count 2.96 mill/uL (4.70-6.10); White Blood Cell (WBC) Count 18.9 thou/uL (4.8-10.8)
[2019-05-15 04:56] LABS: Anion Gap 12 mmol/L (10-20); BUN (Urea Nitrogen) 18 mg/dL (8.4-25.7); Calc. Creatinine Clearance 57 mL/min (70-130); Calcium 7.7 mg/dL (7.8-10.44); Carbon Dioxide 18 mmol/L (23-31); Chloride 115 mmol/L (98-107); Estimated GFR-MDRD 62; Glucose 123 mg/dL (80-115); Potassium 4.2 mmol/L (3.5-5.1); Sodium 141 mmol/L (136-145)
[2019-05-15 06:33] LABS: Actual Bicarbonate (HCO3a) 20.2 mEq/L (22-28); Base Excess (BEa) -4.4 mEq/L (-2.0 to +3.0); CO2 Tension 35.2 mmHg (35.0-45.0); Calcium, Ionized 1.12 mmol/L (1.12-1.30); Carboxyhemoglobin (COHb) 0.7 gm% (0.0-3.0); Hemoglobin (Hb) 9.3 g/dL (14.0-18.0); O2 Tension (PaO2) 84.5 mmHg (> 80.0); pH, Arterial 7.38 (7.35-7.45)
[2019-05-15 06:36] LABS: Puncture Site ALINE
[2019-05-15] MEDS: Budesonide 0.5 MG/2 ML NEB INH SCH ×2 (07:16→22:04)
[2019-05-15] MEDS: Arformoterol 15 MCG/2 ML NEB NEB SCH ×2 (07:17→18:17)
--- NOTE | 2019-05-15 08:48 | RAD ---
PORTABLE CHEST: HISTORY: Postop sternotomy. CCU followup. COMPARISON: 05/14/2019. ET tube and NG tube remain in place. Postop sternotomy change. Central line is unchanged overlying the SVC. Mild vascular and interstitial prominence may represent mild edema. These findings are stable from y esterday. IMPRESSION: No acute change from yesterday. POS: OFF
[2019-05-15] MEDS: Famotidine 20 MG TAB PO SCH ×2 (09:10→21:13)
[2019-05-15] MEDS: Aspirin Chewable 81 MG TAB PO SCH (09:12)
[2019-05-15] MEDS: Docusate 100 MG CAP PO SCH ×2 (09:12→21:13)
[2019-05-15] MEDS: HYDROcodone/Acetaminophen 5/325 mg Tablet PO PRN ×4 (09:13→23:58)
--- NOTE | 2019-05-15 12:18 | PQF ---
CLINICAL DOCUMENTATION IMPROVEMENT CLARIFICATION FORM: ICD-10 Updated PLEASE DO AN ADDENDUM TO THE PROGRESS NOTE WITH ANY DOCUMENTATION UPDATES OR ADDITIONS AND CARRY THROUGH TO DC SUMMARY. THANK YOU. DATE: 05/15/19 ATTN: DR. SANCHEZ Please exercise your independent, professional judgment in responding to the clarification form. Clinical indicators are provided on the bottom of this form for your review Please check appropriate box(s) to clarify if the following diagnosis has been ruled in or ruled out: "SEPSIS" [ x ] Ruled in diagnosis [ x ] Continue to treat [ ] Resolved [ ] Ruled out diagnosis [ ] Cannot rule out diagnosis [ ] Other diagnosis [ ] Unable to determine In addition, please specify: Present on Admission (POA): [ ] Yes [ ] No [ x ] Unable to determine For continuity of documentation, please document condition throughout progress notes and discharge summary. Thank You. CLINICAL INDICATORS - SIGNS / SYMPTOMS / LABS ER NOTE: "SEPSIS" CARDIOLOGY NOTE 05/14: "PRESENTED WITH SEPSIS AND FEBRILE ILLNESS" WBC 05/13: 12.6 WBC 05/14: 45.2 PULSE 120 RR 26 BP 85/58 TREATMENT: IV VANCOMYCIN (ER) IV ZOSYN (ER-PRESENT) IV FLUIDS (ER-05/15) NOREPINEPHRINE (05/14) BLOOD CULTURES CRITICAL CARE MONITORING [employer] Winform Viewer (This form is maintained as a part of the permanent medical record) 2014 [employer]. All Rights Reserved BARI [email or web address] Office: [phone] [facility] HOSPITAL[facility]nie
--- NOTE | 2019-05-15 13:06 | PDOC.CTH ---
Cardiology Progress Note - Subjective The pt seen and examined. No overnight events. No cardiac complaints. Extubated and off Levophed this AM. - Objective Vital Signs Temp Pulse Resp Pulse Ox 05/15/19 12:00 98 F 05/15/19 10:24 96 05/15/19 08:00 97.7 F 100 05/15/19 07:18 98 05/15/19 07:16 86 21 H 98 05/15/19 06:55 88 L 05/15/19 06:00 11 L 05/15/19 04:00 97.8 F 14 05/15/19 02:22 77 05/15/19 02:00 15 Admit Weight 144 lb Weight 144 lb 13.499 oz 05/14/19 05/15/19 05/16/19 06:59 06:59 06:59 Intake Total 1153 3119.1 400 Output Total 3995 2845 365 Balance -2842 274.1 35 - Physical Examination General/Neuro: alert & oriented x3 Neck: no JVD present Lungs: other: (Diminished at bases) Heart: RRR Abdomen: soft Extremities: other: (No edema) - Telemetry Telemetry Rhythm: SR - Labs Result Diagrams: 05/15/19 04:15 05/15/19 04:15 Troponin/CKMB CK-MB (CK-2) 4.8 ng/mL (0-6.6) 05/14/19 02:14 Troponin I 0.134 ng/mL (< 0.028) H 05/14/19 02:14 - Assessment/Plan 1. CAD with CABG x4 on 05/14/2019 - stable; will start BBlocker with more stable VS. On ASA and Lipitor 2. HTN - Off Levophed this AM; 3. PAD with hx of bi-fem bypass 4. Hyperlipidemia MAR reviewed Pt. seen and eval. by me. Feels better than yesterday. Bibasilar rales. Left chest with subcutaneous area in the upper aspect. The remainder of the A/P I agree with the MAGNETIZER. Review of Systems - Review of Systems Constitutional: reports: weakness EENTM: reports: no symptoms reported Respiratory: reports: no symptoms reported Cardiac (ROS): reports: no symptoms reported ABD/GI: reports: no symptoms reported : reports: no symptoms reported Musculoskeletal: reports: no symptoms reported
--- NOTE | 2019-05-15 14:58 | PDOC.PN ---
- Subjective Encounter Start Date: 05/15/19 Encounter Start Time: 14:57 Patient seen and examined, no new issues or complaints. - Objective Resuscitation Status - Order Detail: 05/13/19 09:03 Resuscitation Status Routine Resuscitation Status: FULL: Full Resuscitation Vital Signs & Weight: Vital Signs (12 hours) Temp Pulse Resp Pulse Ox 05/15/19 12:00 98 F 05/15/19 10:24 96 05/15/19 08:00 97.7 F 100 05/15/19 07:18 98 05/15/19 07:16 86 21 H 98 05/15/19 06:55 88 L 05/15/19 06:00 11 L 05/15/19 04:00 97.8 F 14 Weight Admit Weight 144 lb Weight 144 lb 13.499 oz Most Recent Monitor Data Heart Rate from ECG 98 NIBP 118/83 NIBP BP-Mean 94 Respiration from ECG 18 SpO2 80 I&O: 05/14/19 05/15/19 05/16/19 06:59 06:59 06:59 Intake Total 1153 3119.1 550 Output Total 3995 2845 590 Balance -2842 274.1 -40 Result Diagrams: 05/15/19 04:15 05/15/19 04:15 Additional Labs: Accuchecks 05/15/19 05/15/19 05/15/19 06:21 05:08 04:22 POC Glucose 122 H 113 H 137 H 05/15/19 05/15/19 05/15/19 03:14 02:14 01:12 POC Glucose 120 H 92 110 05/15/19 05/14/19 05/14/19 00:12 23:16 22:08 POC Glucose 113 H 99 120 H 05/14/19 05/14/19 05/14/19 21:03 20:11 19:11 POC Glucose 99 80 107 05/14/19 05/14/19 05/14/19 18:34 16:40 15:48 POC Glucose 107 171 H 169 H Phys Exam - Physical Examination Constitutional: NAD HEENT: PERRLA, moist MMs, sclera anicteric Neck: no nodes, no JVD, supple Respiratory: no wheezing, no rales, no rhonchi +CT tube in place Cardiovascular: RRR, no significant murmur, no rub sx site C/D/I Gastrointestinal: soft, non-tender, no distention Musculoskeletal: no edema, pulses present Dx/Plan (1) SOB (shortness of breath) Code(s): R06.02 - SHORTNESS OF BREATH Status: Acute (2) Chest pain Code(s): R07.9 - CHEST PAIN, UNSPECIFIED Status: Acute (3) Hypertensive urgency Code(s): I16.0 - HYPERTENSIVE URGENCY Status: Acute (4) PAD (peripheral artery disease) Code(s): I73.9 - PERIPHERAL VASCULAR DISEASE, UNSPECIFIED Status: Chronic - Plan * S/P cabg * stable, extubated * start weaning down on pressor supportive medications * PT/OT * keep in ICU for now, can likely move out of ICU in 24-48hrs * no changes in plan of care * case and plan d/w patient at length, he understood and agreed with this plan.
--- NOTE | 2019-05-15 19:38 | PRG ---
DATE OF SERVICE: 05/15/2019 SUBJECTIVE: Mr. Barroso events yesterday have been noted. He is doing well. He is complaining of mild sternal pain. He is complaining of shortness of breath at rest, although he looks completely comfortable. OBJECTIVE: VITAL SIGNS: His heart rates in the 80s. He is on a high-flow cannula. Respiratory rates in the 20s, oximetry is 92%, blood pressure 128/66. Intake and outputs; positive 274. LUNGS: Clear. HEART: Regular rhythm. ABDOMEN: Soft and nontender. EXTREMITIES: Warm. DIAGNOSTIC DATA: Chest x-ray just shows mild increase in interstitial markings. LABORATORY DATA: White count 18.9, it was 45.2 yesterday; hemoglobin 9.5; platelets 215,000, not sure if that was an accurate white count yesterday. Sodium 141, potassium 4.2, chloride 115, bicarb 18, BUN 18, creatinine 1.18. Blood gas, today; pH of 7.38, pCO2 of 35, pO2 of 84. IMPRESSION: 1. Status post coronary artery bypass grafting. 2. Chronic obstructive pulmonary disease. Start him on routine nebulizer treatments. We will continue to follow the other physicians. Job ID: [id number]
[2019-05-15] MEDS: Atorvastatin Calcium 40 MG TAB PO SCH (21:13)
[2019-05-15] MEDS: Ondansetron PF 4 MG/2 ML Vial IVP PRN (23:58)
[2019-05-16] MEDS: Piperacillin/Tazobactam 3.375 GM in Sodium Chloride 0.9% 100 ML IVPB SCH ×4 (02:55→21:20)
[2019-05-16 04:30] LABS: #Lymphocytes 0.6 thou/uL (1.20-3.40); #Monocytes 0.4 thou/uL (0.11-0.59); #Neutrophils 5.6 thou/uL (1.40-6.50); %Eosinophils 0.3 % (0.0-10.0); %Lymphocytes 8.3 % (21.0-51.0); %Monocytes 6.1 % (0.0-10.0); %Neutrophils 85.3 % (42.0-75.0); Hemoglobin 11.5 g/dL (14.0-18.0); Mean Corpuscular HGB CONC 33.4 g/dL (32.0-36.0); Mean Corpuscular Hemoglobin 32.4 pg (27.0-31.0); Mean Corpuscular Volume 97.1 fL (78.0-98.0); Mean Platelet Volume 6.4 fL (7.4-10.4); Platelet Count 126 thou/uL (130-400); RBC Distribution Width 11.6 % (11.5-14.5); Red Blood Cell (RBC) Count 3.55 mill/uL (4.70-6.10); White Blood Cell (WBC) Count 6.6 thou/uL (4.8-10.8)
[2019-05-16 04:47] LABS: Anion Gap 9 mmol/L (10-20); BUN (Urea Nitrogen) 22 mg/dL (8.4-25.7); Calc. Creatinine Clearance 57 mL/min (70-130); Calcium 8.3 mg/dL (7.8-10.44); Carbon Dioxide 23 mmol/L (23-31); Chloride 112 mmol/L (98-107); Estimated GFR-MDRD 62; Glucose 101 mg/dL (80-115); Potassium 4.2 mmol/L (3.5-5.1); Sodium 140 mmol/L (136-145)
[2019-05-16] MEDS: Budesonide 0.5 MG/2 ML NEB INH SCH ×2 (07:17→18:15)
--- NOTE | 2019-05-16 08:51 | RAD ---
XR Chest 1 View Portable History: Open-heart surgery Comparison: Radiograph prior day Findings: Patient is Dated in the enteric tube has been removed. Central venous catheter is similar. Mediastinal drains ar e similar. Subcutaneous emphysema has improved. There continue to be interstitial and alveolar opacities both lo wer lobes. No significant pneumothorax. Impression: I 1. Interval extubation and removal of the enteric tube. 2. Pulmonary fibrosis. 3. Improved subcutaneous emphysema.
[2019-05-16] MEDS: Famotidine 20 MG TAB PO SCH ×2 (09:24→21:20)
[2019-05-16] MEDS: ALPRAZolam 0.25 MG TAB PO PRN ×2 (09:24→18:55)
[2019-05-16] MEDS: Docusate 100 MG CAP PO SCH ×2 (09:24→21:15)
[2019-05-16] MEDS: Aspirin Chewable 81 MG TAB PO SCH (09:24)
[2019-05-16] MEDS ORDERED: methylPREDNISolone Sod Succ/PF 125 MG/2 ML VIAL IVP SCH (09:30)
[2019-05-16] MEDS: HYDROcodone/Acetaminophen 5/325 mg Tablet PO PRN (09:40)
--- NOTE | 2019-05-16 11:28 | PDOC.PN ---
- Subjective Encounter Start Date: 05/16/19 Encounter Start Time: 11:27 Patient seen and examined, no new issues. - Objective Resuscitation Status - Order Detail: 05/13/19 09:03 Resuscitation Status Routine Resuscitation Status: FULL: Full Resuscitation Vital Signs & Weight: Vital Signs (12 hours) Temp Pulse Resp Pulse Ox 05/16/19 10:56 91 L 05/16/19 10:55 95 19 95 05/16/19 07:47 96 05/16/19 07:18 99 05/16/19 07:15 93 20 97 05/16/19 04:00 98.2 F 05/16/19 00:00 97.9 F Weight Admit Weight 144 lb Weight 144 lb 2.917 oz Most Recent Monitor Data Heart Rate from ECG 93 NIBP 95/67 NIBP BP-Mean 76 Respiration from ECG 23 SpO2 99 I&O: 05/15/19 05/16/19 05/17/19 06:59 06:59 06:59 Intake Total 3119.1 1933 Output Total 2845 1505 35 Balance 274.1 428 -35 Result Diagrams: 05/16/19 03:40 05/16/19 03:40 Phys Exam - Physical Examination Constitutional: NAD HEENT: PERRLA, moist MMs high flow oxygen Respiratory: no wheezing, no rales, no rhonchi Cardiovascular: RRR, no rub sx site C/D/I systolic murmur Gastrointestinal: soft, non-tender, no distention Musculoskeletal: no edema, pulses present Dx/Plan (1) SOB (shortness of breath) Code(s): R06.02 - SHORTNESS OF BREATH Status: Acute (2) Chest pain Code(s): R07.9 - CHEST PAIN, UNSPECIFIED Status: Acute (3) Hypertensive urgency Code(s): I16.0 - HYPERTENSIVE URGENCY Status: Acute (4) PAD (peripheral artery disease) Code(s): I73.9 - PERIPHERAL VASCULAR DISEASE, UNSPECIFIED Status: Chronic - Plan * extubated * CT tube out * PT/OT * cont medical management without any changes for now * possible transfer to main campus medical center in 24-48hrs * plan d/w patient, he understood and agreed with this plan.
--- NOTE | 2019-05-16 15:21 | PRG ---
DATE OF SERVICE: 05/16/2019 SUBJECTIVE: Mr. Barroso is doing well. He is sitting up in a chair. He is still little short of breath at rest, but says he is feeling better than he felt yesterday. He is in no distress. Still on high-flow oxygen. His saturations vary depending on his mobility. OBJECTIVE: VITAL SIGNS: Heart rate in the 90s, respiratory rates in the 20s, oximetry is 96%. We are trying to wean him back to nasal cannula. Blood pressure is 139/81. Intake and output positive 428. LUNGS: Remarkable for crackles at his bases. HEART: Regular rhythm. ABDOMEN: Soft and nontender. EXTREMITIES: Without edema. LABORATORY DATA: Chest radiograph suggestive of mild edema. Added Medrol 1 dose to see if this improves his gas exchange and suspect some of this is related to underlying COPD. Overall, he is reasonably stable post bypass at this time. He probably needs to remain in the critical care unit. Job ID: [id number]
[2019-05-16] MEDS: Atorvastatin Calcium 40 MG TAB PO SCH (21:19)
[2019-05-17] MEDS: ALPRAZolam 0.25 MG TAB PO PRN (01:12)
[2019-05-17] MEDS: Piperacillin/Tazobactam 3.375 GM in Sodium Chloride 0.9% 100 ML IVPB SCH ×4 (03:18→21:04)
[2019-05-17 05:05] LABS: Anion Gap 10 mmol/L (10-20); BUN (Urea Nitrogen) 21 mg/dL (8.4-25.7); Calc. Creatinine Clearance 65 mL/min (70-130); Calcium 8.6 mg/dL (7.8-10.44); Carbon Dioxide 23 mmol/L (23-31); Chloride 109 mmol/L (98-107); Estimated GFR-MDRD 72; Glucose 103 mg/dL (80-115); Potassium 3.9 mmol/L (3.5-5.1); Sodium 138 mmol/L (136-145)
[2019-05-17] MEDS: Budesonide 0.5 MG/2 ML NEB INH SCH ×2 (07:14→18:23)
[2019-05-17] MEDS: Potassium Chloride 20 MEQ/100 ML PREMIX BAG IVPB PRN (07:41)
--- NOTE | 2019-05-17 09:00 | RAD ---
XR Chest 1 View Portable History: Open heart surgery Comparison: Radiograph prior day Findings: Extensive interstitial and alveolar opacities are similar. Central venous catheter tip sits at the inferior SVC. Heart size is similar. No pneumothorax. Impression: Similar emphysematous changes.
[2019-05-17] MEDS: Aspirin Chewable 81 MG TAB PO SCH (09:05)
[2019-05-17] MEDS: Famotidine 20 MG TAB PO SCH ×2 (09:05→21:04)
[2019-05-17] MEDS: Docusate 100 MG CAP PO SCH ×2 (09:05→21:04)
[2019-05-17 09:06] LABS: #Lymphocytes 0.9 thou/uL (1.20-3.40); #Monocytes 0.8 thou/uL (0.11-0.59); #Neutrophils 12.8 thou/uL (1.40-6.50); %Eosinophils 0.2 % (0.0-10.0); %Lymphocytes 6.3 % (21.0-51.0); %Monocytes 5.3 % (0.0-10.0); %Neutrophils 88.3 % (42.0-75.0); Hemoglobin 8.3 g/dL (14.0-18.0); Mean Corpuscular HGB CONC 33.7 g/dL (32.0-36.0); Mean Corpuscular Hemoglobin 32.6 pg (27.0-31.0); Mean Corpuscular Volume 96.8 fL (78.0-98.0); Mean Platelet Volume 6.4 fL (7.4-10.4); Platelet Count 202 thou/uL (130-400); RBC Distribution Width 11.4 % (11.5-14.5); Red Blood Cell (RBC) Count 2.56 mill/uL (4.70-6.10); White Blood Cell (WBC) Count 14.5 thou/uL (4.8-10.8)
--- NOTE | 2019-05-17 11:21 | PDOC.PN ---
- Subjective Encounter Start Date: 05/17/19 Encounter Start Time: 11:19 Mr. Barroso was seen today in follow-up of post CABG and COPD. He says he is feeling ok. Still a bit tired, and some difficulty with his breathing. - Objective Resuscitation Status - Order Detail: 05/13/19 09:03 Resuscitation Status Routine Resuscitation Status: FULL: Full Resuscitation MAR Reviewed: Yes Vital Signs & Weight: Vital Signs (12 hours) Pulse Resp Pulse Ox 05/17/19 10:27 94 26 H 92 L 05/17/19 08:00 90 L 05/17/19 07:17 99 05/17/19 07:12 91 18 99 05/17/19 04:00 98 05/17/19 02:16 90 L Weight Admit Weight 144 lb Weight 144 lb 6.444 oz Most Recent Monitor Data Heart Rate from ECG 106 NIBP 117/73 NIBP BP-Mean 87 Respiration from ECG 29 SpO2 98 I&O: 05/16/19 05/17/19 05/18/19 06:59 06:59 06:59 Intake Total 1933 1420 270 Output Total 1505 1355 110 Balance 428 65 160 Result Diagrams: 05/17/19 06:48 05/17/19 03:55 Phys Exam - Physical Examination HEENT: PERRLA Respiratory: no wheezing, no rales, no rhonchi, clear to auscultation bilateral decreased breath sounds, and coarse Cardiovascular: RRR, no significant murmur, no rub Gastrointestinal: soft, non-tender, no distention, positive bowel sounds Musculoskeletal: no edema, pulses present Dx/Plan (1) Acute on chronic respiratory failure with hypoxemia Code(s): J96.21 - ACUTE AND CHRONIC RESPIRATORY FAILURE WITH HYPOXIA Status: Acute (2) CAD (coronary artery disease) Code(s): I25.10 - ATHSCL HEART DISEASE OF [place] CORONARY ARTERY W/O ANG PCTRS Status: Acute (3) S/P CABG x 4 Status: Acute (4) COPD (chronic obstructive pulmonary disease) Status: Acute (5) Anemia Code(s): D64.9 - ANEMIA, UNSPECIFIED Status: Acute - Plan * Acute on chronic respiratory failure- stable, but he is still requiring high flow oxygen * Continue steroids and duonebs * CAD- post 4 vessel CABG- he is hemodynamically stable. * HTN- blood pressure is stable * Anemia- will continue to monitor, and transfuse as needed, continue pepcid for now, and consider change to protonix
[2019-05-17] MEDS ORDERED: Furosemide 40 MG/4 ML VIAL IVP SCH (14:07)
--- NOTE | 2019-05-17 14:30 | PRG ---
DATE OF SERVICE: 05/17/2019 SUBJECTIVE: Dharmesh is a 68-year-old male, still in the ICU. He is on a high-flow oxygen. With any movement, he desaturates. OBJECTIVE: VITAL SIGNS: He is afebrile, respiratory rate in the 20s, oximetry is 92%, on high-flow oxygen. LUNGS: Distant, clear. HEART: Regular rhythm. ABDOMEN: Soft. EXTREMITIES: Without asymmetry or edema. NEUROLOGIC: Nonfocal. LABORATORY DATA: Chest radiograph still shows evidence of edema. White count 14.5, hemoglobin is 8.3, and platelets 202,000. Electrolytes are normal. Creatinine is 1.03. Intake and outputs recorded as positive 65 mL. I suspect he would benefit from more diuresis in this point in time. He has a reasonable blood pressure. We will give him some more Lasix this afternoon. We will continue with antimicrobial therapy, although I doubt dealing with pneumonia. Job ID: [id number]
[2019-05-17] MEDS: Atorvastatin Calcium 40 MG TAB PO SCH (21:04)
[2019-05-17] MEDS: HYDROcodone/Acetaminophen 5/325 mg Tablet PO PRN (21:14)
[2019-05-18] MEDS: Piperacillin/Tazobactam 3.375 GM in Sodium Chloride 0.9% 100 ML IVPB SCH ×4 (03:32→21:11)
[2019-05-18 05:32] LABS: #Eosinphils 0.2 thou/uL (0.0-0.7); #Lymphocytes 1.6 thou/uL (1.20-3.40); #Monocytes 0.7 thou/uL (0.11-0.59); #Neutrophils 10.5 thou/uL (1.40-6.50); %Eosinophils 1.7 % (0.0-10.0); %Lymphocytes 12.4 % (21.0-51.0); %Monocytes 5.4 % (0.0-10.0); %Neutrophils 80.5 % (42.0-75.0); Hemoglobin 7.9 g/dL (14.0-18.0); Mean Corpuscular HGB CONC 33.8 g/dL (32.0-36.0); Mean Corpuscular Hemoglobin 32.7 pg (27.0-31.0); Mean Corpuscular Volume 96.7 fL (78.0-98.0); Mean Platelet Volume 6.4 fL (7.4-10.4); Platelet Count 199 thou/uL (130-400); RBC Distribution Width 11.5 % (11.5-14.5); Red Blood Cell (RBC) Count 2.42 mill/uL (4.70-6.10)
[2019-05-18] MEDS ORDERED: Furosemide 40 MG/4 ML VIAL SLOW IVP SCH (06:00)
[2019-05-18 06:06] LABS: Anion Gap 10 mmol/L (10-20); BUN (Urea Nitrogen) 25 mg/dL (8.4-25.7); Calc. Creatinine Clearance 56 mL/min (70-130); Calcium 8.1 mg/dL (7.8-10.44); Carbon Dioxide 25 mmol/L (23-31); Chloride 104 mmol/L (98-107); Estimated GFR-MDRD 61; Glucose 86 mg/dL (80-115); Potassium 3.4 mmol/L (3.5-5.1); Sodium 136 mmol/L (136-145)
[2019-05-18] MEDS: Potassium Chloride 20 MEQ/100 ML PREMIX BAG IVPB PRN (06:50)
[2019-05-18] MEDS: HYDROcodone/Acetaminophen 5/325 mg Tablet PO PRN ×2 (08:03→13:39)
[2019-05-18] MEDS: Budesonide 0.5 MG/2 ML NEB INH SCH ×2 (08:41→18:07)
[2019-05-18] MEDS: Docusate 100 MG CAP PO SCH ×2 (09:21→21:10)
[2019-05-18] MEDS: Aspirin Chewable 81 MG TAB PO SCH (09:21)
[2019-05-18] MEDS: Famotidine 20 MG TAB PO SCH ×2 (09:21→21:11)
[2019-05-18] MEDS ORDERED: diphenhydrAMINE 25 MG CAP PO PRN (09:37)
[2019-05-18] MEDS ORDERED: Guaifenesin DM 100-10/5 ML UDCUP PO PRN (09:37)
[2019-05-18] MEDS ORDERED: Mineral Oil ENEMA PR PRN (09:37)
[2019-05-18] MEDS ORDERED: Bisacodyl 5 MG TAB PO PRN (09:37)
[2019-05-18] MEDS ORDERED: Nitroglycerin 0.4 MG TAB (25 Tab Bottle) SL PRN (09:37)
[2019-05-18] MEDS ORDERED: Bisacodyl 10 MG SUPP PR PRN (09:37)
[2019-05-18] MEDS ORDERED: Zolpidem Tartrate 5 MG TAB PO PRN (09:37)
[2019-05-18] MEDS ORDERED: Mag-Al 1200 mg/1200 mg/30 ML UDCUP PO PRN (09:37)
[2019-05-18] MEDS ORDERED: Artificial Tears 18 DROP/0.9 ML EA EYE PRN (09:37)
--- NOTE | 2019-05-18 09:59 | PRG ---
DATE OF SERVICE: 05/18/2019 SUBJECTIVE: Vito Barroso has no new complaints. He desaturates with limited amount of movement. We are trying to wean his FiO2. He is tolerating diuresis so far with a negative fluid balance of -1418 mL yesterday. OBJECTIVE: LUNGS: Distant clear. HEART: Regular rhythm. ABDOMEN: Soft. EXTREMITIES: Without edema. LABORATORY DATA: White count 13, hemoglobin 7.9, and platelets 199,000. Plan to give him 1 unit of blood today. His electrolytes are unremarkable. IMPRESSION: 1. Chronic obstructive pulmonary disease, status post coronary artery bypass grafting. 2. Underlying severe obstructive lung disease. Unfortunately, we could not quantitate lung function prior to his surgery as we are not sure how severe. 3. Pulmonary edema. He has marginal blood pressure, but hopefully we can continue to diurese him. We will check another chest x-ray in the morning. 4. He will continue on high-flow oxygen for now and remain in the critical care unit. Job ID: [id number]
--- NOTE | 2019-05-18 12:30 | PDOC.CTH ---
Cardiology Progress Note - Objective Vital Signs Temp Pulse Pulse Resp BP Pulse Ox 05/18/19 11:33 84 20 99 05/18/19 11:15 97.8 F 97 20 99/70 05/18/19 11:02 93 20 106/74 05/18/19 08:42 99 05/18/19 08:37 86 26 H 99 05/18/19 08:00 98.2 F 05/18/19 07:25 96 05/18/19 04:00 98.5 F Admit Weight 144 lb Weight 142 lb 13.753 oz 05/17/19 05/18/19 05/19/19 06:59 06:59 06:59 Intake Total 1420 1737 380 Output Total 1355 3155 965 Balance 85 -8665 -958 - Labs Result Diagrams: 05/18/19 Unknown 05/18/19 Unknown Troponin/CKMB CK-MB (CK-2) 4.8 ng/mL (0-6.6) 05/14/19 02:14 Troponin I 0.134 ng/mL (< 0.028) H 05/14/19 02:14 - Assessment/Plan 1. CAD with CABG x4 on 05/14/2019 - stable; will start BBlocker with more stable VS. On ASA and Lipitor 2. HTN - stable with no BP meds 3. PAD with hx of bi-fem bypass 4. Hyperlipidemia MAR reviewed
--- NOTE | 2019-05-18 12:31 | PDOC.PN ---
- Subjective Encounter Start Date: 05/18/19 Encounter Start Time: 12:30 Mr. Barroso was seen today in follow-up of respiratory failure. He is breathing better, but still has significant desaturations with minimal effort. - Objective Resuscitation Status - Order Detail: 05/13/19 09:03 Resuscitation Status Routine Resuscitation Status: FULL: Full Resuscitation MAR Reviewed: Yes Vital Signs & Weight: Vital Signs (12 hours) Temp Pulse Pulse Resp BP Pulse Ox 05/18/19 11:33 84 20 99 05/18/19 11:15 97.8 F 97 20 99/70 05/18/19 11:02 93 20 106/74 05/18/19 08:42 99 05/18/19 08:37 86 26 H 99 05/18/19 08:00 98.2 F 05/18/19 07:25 96 05/18/19 04:00 98.5 F Weight Admit Weight 144 lb Weight 142 lb 13.753 oz Most Recent Monitor Data Heart Rate from ECG 91 NIBP 102/78 NIBP BP-Mean 86 Respiration from ECG 25 SpO2 100 I&O: 05/17/19 05/18/19 05/19/19 06:59 06:59 06:59 Intake Total 1420 1737 380 Output Total 1355 3155 965 Balance 48 -0513 -470 Result Diagrams: 05/18/19 Unknown 05/18/19 Unknown Phys Exam - Physical Examination HEENT: PERRLA + mild expiratory wheeze, and rales at the bases Cardiovascular: RRR, no significant murmur, no rub Gastrointestinal: soft, non-tender, no distention, positive bowel sounds Musculoskeletal: no edema, pulses present Dx/Plan (1) Acute on chronic respiratory failure with hypoxemia Code(s): J96.21 - ACUTE AND CHRONIC RESPIRATORY FAILURE WITH HYPOXIA Status: Acute (2) CAD (coronary artery disease) Code(s): I25.10 - ATHSCL HEART DISEASE OF [place] CORONARY ARTERY W/O ANG PCTRS Status: Acute (3) S/P CABG x 4 Status: Acute (4) COPD (chronic obstructive pulmonary disease) Status: Acute (5) Anemia Code(s): D64.9 - ANEMIA, UNSPECIFIED Status: Acute - Plan * Acute on chronic respiratory failure- due to presumed severe COPD - continue duonebs, Pulmocort and high flow oxygen. * CAD- he is s/p CABG * Anemia- his hemoglobin has dropped to 7.9. He is currently being transfused * Continue supportive care in the ICU
--- NOTE | 2019-05-18 18:04 | PRG ---
DATE OF SERVICE: 05/18/2019 SUBJECTIVE: Mr. Barroso is status post bypass surgery. This was performed on 05/14/2019. I have not seen Mr. Barroso since that time. He currently continues to be in the ICU. He is on high-flow oxygen. He desaturates with low workload. No current complaints of chest pain or pressure. He has no further episodes of hypertension with associated chest pain. His initial episode prior to the angio likely secondary to severe ischemia. PHYSICAL EXAMINATION: GENERAL: Patient is a pleasant gentleman, who is in no acute distress. The patient appears older than stated age. VITAL SIGNS: Blood pressure 116/78, pulse 103, respirations 20. NEUROLOGIC: The patient is alert and oriented x3 with no focal neurologic deficits. HEENT: Sclerae without icterus. Mouth has moist mucous membranes with normal pallor. NECK: No JVD. Carotid upstroke brisk. No bruits bilaterally. LUNGS: Clear to auscultation with unlabored respirations. BACK: No scoliosis or kyphosis. CARDIAC: Regular rate and rhythm with normal S1 and S2. No S3 or S4 noted. No significant rubs, murmurs, thrills, or gallops noted throughout the precordium. PMI is not displaced. There is no parasternal heave. ABDOMEN: Soft, nontender, nondistended. No peritoneal signs present. No hepatosplenomegaly. No abnormal striae. EXTREMITIES: 2+ femoral and 2+ dorsalis pedis pulses. No cyanosis, clubbing, or edema. SKIN: No gross abnormalities. PERTINENT LABORATORY DATA: Hemoglobin 7.9, creatinine 1.2. IMPRESSION: 1. Coronary artery disease. 2. Status post bypass surgery. 3. Chronic obstructive pulmonary disease. 4. Previous tobacco abuse. RECOMMENDATIONS: 1. Appreciate pulmonary support. 2. Continue aspirin. 3. Add statin therapy. 4. Add low-dose Toprol-XL. 5. Physical therapy and incentive spirometry. Job ID: [id number]
[2019-05-18] MEDS: Metoprolol Tartrate 25 MG TAB PO SCH (21:10)
[2019-05-18] MEDS: Atorvastatin Calcium 40 MG TAB PO SCH (21:10)
[2019-05-19] MEDS: HYDROcodone/Acetaminophen 5/325 mg Tablet PO PRN ×4 (00:04→22:54)
[2019-05-19] MEDS: Piperacillin/Tazobactam 3.375 GM in Sodium Chloride 0.9% 100 ML IVPB SCH ×4 (02:42→20:44)
[2019-05-19 04:19] LABS: #Eosinphils 0.4 thou/uL (0.0-0.7); #Lymphocytes 1.8 thou/uL (1.20-3.40); #Neutrophils 10.6 thou/uL (1.40-6.50); %Basophils 0.2 % (0.0-1.0); %Eosinophils 3.2 % (0.0-10.0); %Monocytes 6.9 % (0.0-10.0); %Neutrophils 76.7 % (42.0-75.0); Hemoglobin 8.9 g/dL (14.0-18.0); Mean Corpuscular HGB CONC 33.9 g/dL (32.0-36.0); Mean Corpuscular Hemoglobin 32.3 pg (27.0-31.0); Mean Corpuscular Volume 95.3 fL (78.0-98.0); Mean Platelet Volume 6.5 fL (7.4-10.4); Platelet Count 211 thou/uL (130-400); RBC Distribution Width 12.6 % (11.5-14.5); Red Blood Cell (RBC) Count 2.76 mill/uL (4.70-6.10); White Blood Cell (WBC) Count 13.8 thou/uL (4.8-10.8)
[2019-05-19 04:35] LABS: Anion Gap 13 mmol/L (10-20); BUN (Urea Nitrogen) 29 mg/dL (8.4-25.7); Calc. Creatinine Clearance 54 mL/min (70-130); Calcium 8.3 mg/dL (7.8-10.44); Carbon Dioxide 25 mmol/L (23-31); Chloride 102 mmol/L (98-107); Estimated GFR-MDRD 58; Glucose 89 mg/dL (80-115); Potassium 3.6 mmol/L (3.5-5.1); Sodium 136 mmol/L (136-145)
[2019-05-19] MEDS: Budesonide 0.5 MG/2 ML NEB INH SCH ×2 (07:49→18:14)
--- NOTE | 2019-05-19 07:59 | PDOC.CTH ---
Cardiology Progress Note - Subjective Slowly improving. Less O dependent - Objective Vital Signs Temp Pulse Resp Pulse Ox 05/19/19 07:50 95 05/19/19 07:48 86 19 99 05/19/19 07:00 97.9 F 05/19/19 04:00 98.3 F 05/19/19 02:13 93 L 05/19/19 00:00 98.2 F 05/18/19 20:00 98.1 F 92 L Admit Weight 143 lb 4.807 oz Weight 143 lb 4.807 oz 05/18/19 05/19/19 05/20/19 06:59 06:59 06:59 Intake Total 1737 2317 Output Total 1015 2520 90 Balance -1418 -203 -90 - Physical Examination General/Neuro: NAD Neck: carotid US brisk, no JVD present Lungs: unlabored respirations Heart: PMI normal, RRR Abdomen: no HSM, NT/ND, soft Extremities: + femoral B - Labs Result Diagrams: 05/19/19 03:58 05/19/19 03:58 Troponin/CKMB CK-MB (CK-2) 4.8 ng/mL (0-6.6) 05/14/19 02:14 Troponin I 0.134 ng/mL (< 0.028) H 05/14/19 02:14 - Assessment/Plan Severe CAD s/p CABG Tobacco use COPD Main issue is lung status Ambulating but limited secondary to hypoxia although better today Low dose BB ASA, statin
--- NOTE | 2019-05-19 08:12 | RAD ---
RADIOGRAPH CHEST 1 VIEW: DATE: 05/19/2019 TIME: 4:59 AM HISTORY: 68-year-old male recently status post CABG. COMPARISON: 05/17/2019 5:21 AM FINDINGS: Right supplying central line remains. Sternotomy wires. Diffuse left-sided interstitial infiltrates, and mixed interstitial and alveolar infiltrates in the right side, are unchanged. Uncertain how much of this is chronic and how much is acute, if any. Lateral costophrenic angles are not effaced. N o pneumothorax. No interval change. IMPRESSION: 1) status post recent open heart surgery. 2) right-sided central line remains. 3) diffuse bilateral pulmonary infiltrates, at least some of which, and possibly all of which, or chr onic.
[2019-05-19] MEDS ORDERED: Metolazone 5 MG TAB PO SCH (08:30)
[2019-05-19] MEDS: Famotidine 20 MG TAB PO SCH ×2 (08:38→20:43)
[2019-05-19] MEDS: Furosemide 40 MG TAB PO SCH (08:39)
[2019-05-19] MEDS: Metoprolol Tartrate 25 MG TAB PO SCH ×2 (08:39→20:43)
[2019-05-19] MEDS: Docusate 100 MG CAP PO SCH ×2 (08:39→20:43)
[2019-05-19] MEDS: Aspirin Chewable 81 MG TAB PO SCH (08:39)
[2019-05-19 08:50] LABS: Actual Bicarbonate (HCO3a) 20.3 mEq/L (22-28); Analyzer IN Cardio OR; Base Excess (BEa) -4.7 mEq/L (-2.0 to +3.0); CO2 Tension 37.6 mmHg (35.0-45.0); Calcium, Ionized 1.19 mmol/L (1.12-1.30); Carboxyhemoglobin (COHb) 0.5 gm% (0.0-3.0); Hemoglobin (Hb) 13.9 g/dL (14.0-18.0); O2 Tension (PaO2) 398.7 mmHg (> 80.0); Potassium - ABG Lab 3.91 mmol/L (3.70-5.30); pH, Arterial 7.35 (7.35-7.45)
[2019-05-19 08:51] LABS: Analyzer IN Cardio OR; Base Excess (BEa) -6.3 mEq/L (-2.0 to +3.0); CO2 Tension 48.8 mmHg (35.0-45.0); Calcium, Ionized 1.17 mmol/L (1.12-1.30); Carboxyhemoglobin (COHb) 0.2 gm% (0.0-3.0); Hemoglobin (Hb) 13.5 g/dL (14.0-18.0); O2 Tension (PaO2) 499.1 mmHg (> 80.0); Potassium - ABG Lab 4.03 mmol/L (3.70-5.30)
[2019-05-19 08:51] LABS: Actual Bicarbonate (HCO3a) 19.9 mEq/L (22-28); Analyzer IN Cardio OR; Base Excess (BEa) -7.7 mEq/L (-2.0 to +3.0); CO2 Tension 50.1 mmHg (35.0-45.0); Calcium, Ionized 1.02 mmol/L (1.12-1.30); Carboxyhemoglobin (COHb) 0.3 gm% (0.0-3.0); Hemoglobin (Hb) 10.2 g/dL (14.0-18.0); Potassium - ABG Lab 4.55 mmol/L (3.70-5.30)
[2019-05-19 08:52] LABS: Actual Bicarbonate (HCO3a) 22.7 mEq/L (22-28); Analyzer IN Cardio OR; Base Excess (BEa) -3.4 mEq/L (-2.0 to +3.0); CO2 Tension 45.9 mmHg (35.0-45.0); Carboxyhemoglobin (COHb) 0.3 gm% (0.0-3.0); pH, Arterial 7.31 (7.35-7.45)
[2019-05-19 08:52] LABS: Actual Bicarbonate (HCO3v) 24 mEq/L (22-28); Analyzer IN Cardio OR; Base Excess -3.7 mEq/L (-2.0 to +3.0); Calcium, Ionized 1.01 mmol/L (1.16-1.32); Chloride (ABG LAB) 106 mmol/L (98-106); Hemoglobin (Hb) 9.1 g/dL (12.6-17.4); Potassium - ABG Lab 5.21 mmol/L (3.70-5.30); Sodium 135.1 mmol/L (133-146); pH (venous) 7.25 (7.32-7.43)
[2019-05-19 08:52] LABS: Actual Bicarbonate (HCO3a) 21.6 mEq/L (22-28); Analyzer IN Cardio OR; Base Excess (BEa) -4.9 mEq/L (-2.0 to +3.0); CO2 Tension 46.3 mmHg (35.0-45.0); Calcium, Ionized 1.01 mmol/L (1.12-1.30); Carboxyhemoglobin (COHb) 0.5 gm% (0.0-3.0); Hemoglobin (Hb) 9.1 g/dL (14.0-18.0); O2 Tension (PaO2) 445.2 mmHg (> 80.0); Potassium - ABG Lab 5.18 mmol/L (3.70-5.30); pH, Arterial 7.29 (7.35-7.45)
[2019-05-19 08:53] LABS: Actual Bicarbonate (HCO3a) 20.6 mEq/L (22-28); Analyzer IN Cardio OR; Base Excess (BEa) -5.8 mEq/L (-2.0 to +3.0); CO2 Tension 44.3 mmHg (35.0-45.0); Calcium, Ionized 1.15 mmol/L (1.12-1.30); Carboxyhemoglobin (COHb) 0.3 gm% (0.0-3.0); O2 Tension (PaO2) 278.5 mmHg (> 80.0); Potassium - ABG Lab 4.64 mmol/L (3.70-5.30); pH, Arterial 7.29 (7.35-7.45)
[2019-05-19 08:53] LABS: Actual Bicarbonate (HCO3a) 20.7 mEq/L (22-28); Analyzer IN Cardio OR; Base Excess (BEa) -6.5 mEq/L (-2.0 to +3.0); Calcium, Ionized 1.12 mmol/L (1.12-1.30); Carboxyhemoglobin (COHb) 0.4 gm% (0.0-3.0); Hemoglobin (Hb) 12.4 g/dL (14.0-18.0); O2 Tension (PaO2) 290.1 mmHg (> 80.0); Potassium - ABG Lab 4.43 mmol/L (3.70-5.30)
[2019-05-19 09:11] LABS: Puncture Site ALINE; pH, Arterial 7.25 (7.35-7.45)
[2019-05-19 09:11] LABS: Puncture Site ALINE
[2019-05-19 09:12] LABS: O2 Tension (PaO2) 525.7 mmHg (> 80.0)
[2019-05-19 09:13] LABS: Puncture Site ALINE
[2019-05-19 09:13] LABS: Puncture Site ALINE
[2019-05-19 09:14] LABS: pH, Arterial 7.22 (7.35-7.45)
[2019-05-19 09:15] LABS: O2 Tension (PaO2) 522.4 mmHg (> 80.0); Puncture Site ALINE
[2019-05-19 09:16] LABS: Puncture Site ALINE; pH, Arterial 7.25 (7.35-7.45)
[2019-05-19 09:17] LABS: Puncture Site ALINE
--- NOTE | 2019-05-19 11:38 | PRG ---
DATE OF SERVICE: 05/19/2019 SUBJECTIVE: Mr. Barroso is doing better. He sat up more today. His FiO2 is down. We are trying to switch him to a nasal cannula today. OBJECTIVE: VITAL SIGNS: He is afebrile, heart rate is 82, respiratory rate is 18, oximetry is 90% on 30%, and blood pressure 99/64. LUNGS: Distant and clear. HEART: Regular rhythm. ABDOMEN: Soft and nontender. EXTREMITIES: Without edema or asymmetry. NEUROLOGIC: Nonfocal. LABORATORY DATA: White count 13.8, hemoglobin 8.9, and platelets 211. Sodium 136, potassium 3.6, chloride 102, bicarb 25, BUN 29, and creatinine 1.24. IMPRESSION: 1. Status post coronary artery bypass grafting. 2. Coronary artery disease. 3. Probable severe chronic obstructive pulmonary disease. PLAN: He is progressing slowly. He would probably be best served staying in the unit. His hemoglobin is stable after 1 unit of packed cells. He does not appear to be bleeding. Job ID: [id number]
--- NOTE | 2019-05-19 15:15 | PDOC.PN ---
- Subjective Encounter Start Date: 05/19/19 Encounter Start Time: 15:14 Subjective: Feeling better. -: Admitted with worsening SOB, productive cough and chest discomfort -: S/p CABG. - Objective Resuscitation Status - Order Detail: 05/13/19 09:03 Resuscitation Status Routine Resuscitation Status: FULL: Full Resuscitation Vital Signs & Weight: Vital Signs (12 hours) Temp Pulse Pulse Pulse Resp BP BP 05/19/19 14:17 05/19/19 14:15 89 17 05/19/19 12:56 99 93 143/92 H 118/82 05/19/19 12:00 97.9 F 92 16 05/19/19 11:15 05/19/19 11:13 82 18 05/19/19 11:00 97.8 F 05/19/19 08:49 91 103 H 99/64 104/68 05/19/19 08:00 97.9 F 05/19/19 07:50 05/19/19 07:48 86 19 05/19/19 07:00 97.9 F 05/19/19 04:00 98.3 F BP Pulse Ox Pulse Ox Pulse Ox 05/19/19 14:17 94 L 05/19/19 14:15 94 L 05/19/19 12:56 91 L 94 L 05/19/19 12:00 142/68 H 94 L 05/19/19 11:15 90 L 05/19/19 11:13 90 L 05/19/19 11:00 05/19/19 08:49 90 L 90 L 05/19/19 08:00 88 L 05/19/19 07:50 95 05/19/19 07:48 99 05/19/19 07:00 05/19/19 04:00 Weight Admit Weight 143 lb 4.807 oz Weight 143 lb 4.807 oz Most Recent Monitor Data Heart Rate from ECG 94 NIBP 99/64 NIBP BP-Mean 75 Respiration from ECG 17 SpO2 91 I&O: 05/18/19 05/19/19 05/20/19 06:59 06:59 06:59 Intake Total 1737 2317 900 Output Total 3591 3200 650 Balance -1418 -203 250 Result Diagrams: 05/19/19 03:58 05/19/19 03:58 Phys Exam - Physical Examination Constitutional: NAD HEENT: PERRLA, moist MMs Neck: no JVD, supple Respiratory: no rhonchi fair air entry with bilateral fine crackles. No rhonchi appreciated Cardiovascular: RRR Gastrointestinal: soft, non-tender, no distention, positive bowel sounds galvan cath in place mild left leg edema. medial left leg surgical wound noted Neurological: non-focal, moves all 4 limbs Psychiatric: normal affect, A&O x 3 Dx/Plan (1) CKD (chronic kidney disease), stage III Code(s): N18.3 - CHRONIC KIDNEY DISEASE, STAGE 3 (MODERATE) Status: Acute (2) COPD with exacerbation Code(s): J44.1 - CHRONIC OBSTRUCTIVE PULMONARY DISEASE W (ACUTE) EXACERBATION Status: Acute (3) Pneumonia Code(s): J18.9 - PNEUMONIA, UNSPECIFIED ORGANISM Status: Acute (4) Hypotension Status: Acute (5) Acute on chronic respiratory failure with hypoxemia Code(s): J96.21 - ACUTE AND CHRONIC RESPIRATORY FAILURE WITH HYPOXIA Status: Acute (6) CAD (coronary artery disease) Code(s): I25.10 - ATHSCL HEART DISEASE OF [place] CORONARY ARTERY W/O ANG PCTRS Status: Acute (7) PAD (peripheral artery disease) Code(s): I73.9 - PERIPHERAL VASCULAR DISEASE, UNSPECIFIED Status: Chronic - Plan Continue antibiotics, bronchodilators and oxygen -: continue other supportive care. -: wean oxygen as tolerated. -: Anticipated transfer to [facility] in a day or 2. -: follow CBC and renal functoion * .
--- NOTE | 2019-05-19 16:16 | PRG ---
DATE OF SERVICE: 05/19/2019 SUBJECTIVE: Vito Barroso spent a little more time out of bed each day. OBJECTIVE: VITAL SIGNS: His heart rate in the 80s, he is afebrile, respiratory rate is 15, his oximetry is 94% on 4. He is off high flow, now on nasal cannula. HEENT: Pupils are equal. Sclerae are anicteric. NECK: Supple. LUNGS: Clear and distant. HEART: Regular rhythm. S1 and S2 are normal. ABDOMEN: Soft and nontender. EXTREMITIES: Without asymmetry or edema. LABORATORY DATA: White count 13.8, hemoglobin 8.9, and platelets 211. Sodium 136, potassium 3.6, chloride 102, bicarb 25, BUN 29, and creatinine 1.24. IMPRESSION: 1. Status post coronary artery bypass grafting. 2. Probable severe underlying chronic obstructive pulmonary disease. 3. Deconditioning. PLAN: Continue physical therapy and cardiac rehab exercises. We are slowly weaning him down off his high-flow O2. He is tolerating this reasonably well. Job ID: [id number]
[2019-05-19] MEDS: Atorvastatin Calcium 40 MG TAB PO SCH (20:43)
[2019-05-20 04:41] LABS: #Eosinphils 0.4 thou/uL (0.0-0.7); #Lymphocytes 2.1 thou/uL (1.20-3.40); #Monocytes 1.1 thou/uL (0.11-0.59); #Neutrophils 9.3 thou/uL (1.40-6.50); %Basophils 0.1 % (0.0-1.0); %Eosinophils 3.1 % (0.0-10.0); %Monocytes 8.7 % (0.0-10.0); %Neutrophils 72.1 % (42.0-75.0); Hemoglobin 9.4 g/dL (14.0-18.0); Mean Corpuscular HGB CONC 32.3 g/dL (32.0-36.0); Mean Corpuscular Hemoglobin 31.6 pg (27.0-31.0); Mean Corpuscular Volume 97.8 fL (78.0-98.0); Mean Platelet Volume 6.6 fL (7.4-10.4); Platelet Count 238 thou/uL (130-400); RBC Distribution Width 13.5 % (11.5-14.5); Red Blood Cell (RBC) Count 2.98 mill/uL (4.70-6.10); White Blood Cell (WBC) Count 12.8 thou/uL (4.8-10.8)
[2019-05-20 05:07] LABS: Anion Gap 15 mmol/L (10-20); BUN (Urea Nitrogen) 27 mg/dL (8.4-25.7); Calc. Creatinine Clearance 52 mL/min (70-130); Carbon Dioxide 24 mmol/L (23-31); Chloride 97 mmol/L (98-107); Estimated GFR-MDRD 56; Glucose 87 mg/dL (80-115); Potassium 3.6 mmol/L (3.5-5.1); Sodium 132 mmol/L (136-145)
[2019-05-20] MEDS: Budesonide 0.5 MG/2 ML NEB INH SCH ×2 (06:42→19:01)
[2019-05-20] MEDS: Metoprolol Tartrate 25 MG TAB PO SCH ×2 (09:00→20:44)
[2019-05-20] MEDS: Furosemide 40 MG TAB PO SCH (09:00)
[2019-05-20] MEDS: Docusate 100 MG CAP PO SCH ×2 (09:01→20:45)
[2019-05-20] MEDS: Aspirin Chewable 81 MG TAB PO SCH (09:01)
[2019-05-20] MEDS: Famotidine 20 MG TAB PO SCH ×2 (09:01→20:44)
[2019-05-20] MEDS: HYDROcodone/Acetaminophen 5/325 mg Tablet PO PRN ×3 (09:07→23:32)
--- NOTE | 2019-05-20 11:20 | PDOC.PN ---
- Subjective Encounter Start Date: 05/20/19 Encounter Start Time: 11:18 Subjective: Feeling better. Still requiring oxygen. -: No fever. - Objective Resuscitation Status - Order Detail: 05/13/19 09:03 Resuscitation Status Routine Resuscitation Status: FULL: Full Resuscitation Vital Signs & Weight: Vital Signs (12 hours) Temp Pulse Resp BP Pulse Ox 05/20/19 10:46 99 20 05/20/19 06:42 93 20 05/20/19 04:00 98.8 F 97 20 115/80 93 L Weight Admit Weight 143 lb 4.807 oz Weight 138 lb 3.2 oz Most Recent Monitor Data Heart Rate from ECG 94 NIBP 99/64 NIBP BP-Mean 75 Respiration from ECG 17 SpO2 91 I&O: 05/19/19 05/20/19 05/21/19 06:59 06:59 06:59 Intake Total 2317 2060 Output Total 2520 3260 Balance -203 -1200 Result Diagrams: 05/20/19 04:33 05/20/19 04:33 Phys Exam - Physical Examination Constitutional: NAD HEENT: PERRLA, moist MMs Neck: no JVD, supple fair air entry with bibasal crackles posteriorly. No obvious rhonchi Cardiovascular: RRR Gastrointestinal: soft, non-tender, no distention, positive bowel sounds trace left leg edema with surgical wounds with ecchymosis medially Neurological: non-focal, moves all 4 limbs Psychiatric: A&O x 3 Dx/Plan (1) CKD (chronic kidney disease), stage III Code(s): N18.3 - CHRONIC KIDNEY DISEASE, STAGE 3 (MODERATE) Status: Acute (2) COPD with exacerbation Code(s): J44.1 - CHRONIC OBSTRUCTIVE PULMONARY DISEASE W (ACUTE) EXACERBATION Status: Acute (3) Pneumonia Code(s): J18.9 - PNEUMONIA, UNSPECIFIED ORGANISM Status: Acute (4) Hypotension Status: Acute (5) Acute on chronic respiratory failure with hypoxemia Code(s): J96.21 - ACUTE AND CHRONIC RESPIRATORY FAILURE WITH HYPOXIA Status: Acute (6) CAD (coronary artery disease) Code(s): I25.10 - ATHSCL HEART DISEASE OF [place] CORONARY ARTERY W/O ANG PCTRS Status: Acute (7) PAD (peripheral artery disease) Code(s): I73.9 - PERIPHERAL VASCULAR DISEASE, UNSPECIFIED Status: Chronic (8) Hyponatremia Code(s): E87.1 - HYPO-OSMOLALITY AND HYPONATREMIA Status: Acute Comment: Most likely related to thiazide diuretic. - Plan DC thiazide diuretic. continue lasix. -: Dc Zosyn and start oral levaquin -: wean oxygen as tolerated. -: continue bronchodilators. -: increase activity * .
--- NOTE | 2019-05-20 15:51 | PDOC.CTH ---
Cardiology Progress Note - Subjective No complaints. Up to chair. - Objective Vital Signs Temp Pulse Pulse Pulse Resp BP BP 05/20/19 15:43 93 20 05/20/19 14:01 108 H 100 99/61 95/61 05/20/19 12:00 98.2 F 100 20 05/20/19 10:46 99 20 05/20/19 09:47 110 H 92 137/74 111/81 05/20/19 08:00 98.1 F 104 H 20 05/20/19 06:42 93 20 05/20/19 04:00 98.8 F 97 20 BP Pulse Ox Pulse Ox Pulse Ox 05/20/19 15:43 05/20/19 14:01 94 L 05/20/19 12:00 113/80 98 05/20/19 10:46 05/20/19 09:47 90 L 97 05/20/19 08:00 149/80 H 98 05/20/19 06:42 05/20/19 04:00 115/80 93 L Admit Weight 143 lb 4.807 oz Weight 138 lb 3.2 oz 05/19/19 05/20/19 05/21/19 06:59 06:59 06:59 Intake Total 2317 2060 240 Output Total 2520 3260 Balance -203 -1200 240 - Physical Examination General/Neuro: alert & oriented x3 Neck: carotid US brisk Lungs: CTA Heart: RRR Abdomen: NT/ND Extremities: other: (no edema) - Telemetry Telemetry Rhythm: SR - Labs Result Diagrams: 05/20/19 04:33 05/20/19 04:33 Troponin/CKMB CK-MB (CK-2) 4.8 ng/mL (0-6.6) 05/14/19 02:14 Troponin I 0.134 ng/mL (< 0.028) H 05/14/19 02:14 - Assessment/Plan 1. Severe CAD s/p CABG 2. Tobacco use 3. COPD Continue increasing activity/walking. no changes to meds today. Consider increasing bblocker tomorrow if vitals stable.
--- NOTE | 2019-05-20 17:10 | PRG ---
DATE OF SERVICE: 05/20/2019 SUBJECTIVE: Mr. Barroso is doing well. He is sitting at a bedside chair, talking to a neighbor on the phone when I made rounds on him. He has actually walked twice surprisingly. He is still on a nasal cannula. OBJECTIVE: VITAL SIGNS: He is afebrile, heart rate is 93, respiratory rate is 20, oximetry has been in the high 90s on 4L cannula, and blood pressure 95/61. LUNGS: Clear. HEART: Regular rhythm. ABDOMEN: Soft. LABORATORY DATA: White count 12.8, hemoglobin 9.4, and platelets 238. Sodium 132, potassium 3.6, chloride 97, bicarb 24, BUN 27, and creatinine 1.28. IMPRESSION: 1. Chronic obstructive pulmonary disease with postoperative hypoxemia after coronary artery bypass grafting. 2. Coronary artery bypass grafting, done urgently. 3. Normal left ventricular ejection fraction prior to surgery with diastolic dysfunction, seen on echo. 4. Deconditioning. PLAN: He continues to improve. He might be a candidate for inpatient rehab and do better that way since I believe he lives alone. Job ID: [id number]
[2019-05-20] MEDS: Atorvastatin Calcium 40 MG TAB PO SCH (20:45)
[2019-05-21 05:13] LABS: #Eosinphils 0.2 thou/uL (0.0-0.7); #Lymphocytes 1.6 thou/uL (1.20-3.40); #Monocytes 1.2 thou/uL (0.11-0.59); #Neutrophils 10.1 thou/uL (1.40-6.50); %Basophils 0.2 % (0.0-1.0); %Eosinophils 1.8 % (0.0-10.0); %Lymphocytes 12.5 % (21.0-51.0); %Monocytes 8.8 % (0.0-10.0); %Neutrophils 76.7 % (42.0-75.0); Hemoglobin 9.5 g/dL (14.0-18.0); Mean Corpuscular HGB CONC 32.5 g/dL (32.0-36.0); Mean Corpuscular Hemoglobin 31.2 pg (27.0-31.0); Mean Platelet Volume 6.3 fL (7.4-10.4); Platelet Count 249 thou/uL (130-400); RBC Distribution Width 13.3 % (11.5-14.5); Red Blood Cell (RBC) Count 3.05 mill/uL (4.70-6.10); White Blood Cell (WBC) Count 13.1 thou/uL (4.8-10.8)
[2019-05-21 05:33] LABS: Anion Gap 14 mmol/L (10-20); BUN (Urea Nitrogen) 33 mg/dL (8.4-25.7); Calc. Creatinine Clearance 44 mL/min (70-130); Calcium 9.6 mg/dL (7.8-10.44); Carbon Dioxide 27 mmol/L (23-31); Chloride 95 mmol/L (98-107); Estimated GFR-MDRD 48; Glucose 99 mg/dL (80-115); Potassium 3.9 mmol/L (3.5-5.1); Sodium 132 mmol/L (136-145)
[2019-05-21] MEDS: Budesonide 0.5 MG/2 ML NEB INH SCH ×2 (07:01→20:02)
[2019-05-21] MEDS: Aspirin Chewable 81 MG TAB PO SCH (08:09)
[2019-05-21] MEDS: Famotidine 20 MG TAB PO SCH ×2 (08:10→21:31)
[2019-05-21] MEDS: Docusate 100 MG CAP PO SCH ×2 (08:10→21:31)
[2019-05-21] MEDS: Furosemide 40 MG TAB PO SCH (08:11)
--- NOTE | 2019-05-21 08:36 | RAD ---
PORTABLE CHEST: HISTORY: Postop sternotomy. COMPARISON: 05/19/2019. FINDINGS: Vascular congestive changes appear improved from yesterday. Postop sternotomy changes are again note d. Central line is unchanged. No infiltrate or significant effusion. Chronic-appearing lung change s with mild interstitial prominence. A calcified nodule in the left mid lung is noted. IMPRESSION: No acute process. POS: [facility]
[2019-05-21] MEDS: Metoprolol Tartrate 25 MG TAB PO SCH ×2 (08:53→11:27)
--- NOTE | 2019-05-21 12:30 | PDOC.PN ---
- Subjective Encounter Start Date: 05/21/19 Encounter Start Time: 12:29 Subjective: Feeling better. Still weak and on oxygen. -: No new problem. -: BP noted to be low since today. - Objective Resuscitation Status - Order Detail: 05/13/19 09:03 Resuscitation Status Routine Resuscitation Status: FULL: Full Resuscitation Vital Signs & Weight: Vital Signs (12 hours) Temp Pulse Pulse Pulse Resp BP BP 05/21/19 11:12 97.4 F L 103 H 17 05/21/19 10:27 98 16 05/21/19 09:18 98 109 H 93/68 93/70 05/21/19 08:17 05/21/19 07:06 96.6 F L 89 17 05/21/19 07:01 92 20 05/21/19 06:56 92 20 05/21/19 04:00 98.0 F 92 20 BP Pulse Ox Pulse Ox Pulse Ox 05/21/19 11:12 97/70 100 05/21/19 10:27 90 L 05/21/19 09:18 100 96 05/21/19 08:17 107/75 05/21/19 07:06 95/62 100 05/21/19 07:01 96 05/21/19 06:56 96 05/21/19 04:00 109/70 94 L Weight Admit Weight 143 lb 4.807 oz Weight 142 lb 9.6 oz Most Recent Monitor Data Heart Rate from ECG 94 NIBP 99/64 NIBP BP-Mean 75 Respiration from ECG 17 SpO2 91 I&O: 05/20/19 05/21/19 05/22/19 06:59 06:59 06:59 Intake Total 2060 970 Output Total 3260 100 Balance -1200 870 Result Diagrams: 05/21/19 05:06 05/21/19 05:06 Phys Exam - Physical Examination Constitutional: NAD HEENT: moist MMs Neck: no JVD, supple Respiratory: no wheezing, no rhonchi fair air entry with fine crackles. Cardiovascular: RRR Gastrointestinal: soft, non-tender, no distention, positive bowel sounds Musculoskeletal: pulses present trace left leg edema Neurological: non-focal Psychiatric: A&O x 3 Dx/Plan (1) CAD (coronary artery disease) Code(s): I25.10 - ATHSCL HEART DISEASE OF [place] CORONARY ARTERY W/O ANG PCTRS Status: Acute Comment: S/p CABG (2) CKD (chronic kidney disease), stage III Code(s): N18.3 - CHRONIC KIDNEY DISEASE, STAGE 3 (MODERATE) Status: Acute (3) COPD with exacerbation Code(s): J44.1 - CHRONIC OBSTRUCTIVE PULMONARY DISEASE W (ACUTE) EXACERBATION Status: Acute (4) Pneumonia Code(s): J18.9 - PNEUMONIA, UNSPECIFIED ORGANISM Status: Acute (5) Hypotension Status: Acute (6) Acute on chronic respiratory failure with hypoxemia Code(s): J96.21 - ACUTE AND CHRONIC RESPIRATORY FAILURE WITH HYPOXIA Status: Acute (7) PAD (peripheral artery disease) Code(s): I73.9 - PERIPHERAL VASCULAR DISEASE, UNSPECIFIED Status: Chronic (8) Hyponatremia Code(s): E87.1 - HYPO-OSMOLALITY AND HYPONATREMIA Status: Acute Comment: Most likely related to thiazide diuretic. (9) Physical deconditioning Code(s): R53.81 - OTHER [place] Status: Acute (10) Acute CHF Code(s): I50.9 - HEART FAILURE, UNSPECIFIED Status: Acute Qualifiers: Heart failure type: diastolic Qualified Code(s): I50.31 - Acute diastolic ( congestive) heart failure - Plan Hold diuretics and beta toan given hypotension. -: Continue bronchodilators and antibiotics. -: continue PT/OT -: Consult rehab screening. -: Follow vitals and renal function. * .
[2019-05-21] MEDS: HYDROcodone/Acetaminophen 5/325 mg Tablet PO PRN ×2 (13:12→21:30)
[2019-05-21 14:06] VITALS: BMI 20.5
--- NOTE | 2019-05-21 14:59 | PRG ---
DATE OF SERVICE: 05/21/2019 SUBJECTIVE: Vito Barroso has no complaints. He is doing better with PT. OBJECTIVE: GENERAL: He is afebrile. VITAL SIGNS: Heart rate 103, respiratory rate 17, oximetry is 100% on 2 L, blood pressure 93/68 earlier today. LUNGS: Clear. HEART: Regular rhythm. ABDOMEN: Soft. EXTREMITIES: Without clubbing, cyanosis, or edema. LABORATORY DATA: White count 13.1, hemoglobin 9.5, platelets 249. Sodium 132, potassium 3.9, chloride 95, bicarb 27, BUN 33, creatinine 1.48. IMPRESSION: 1. Status post coronary artery bypass grafting. 2. Acute on chronic kidney disease. 3. Chronic obstructive pulmonary disease, fully improving. PLAN: Continue the same. Job ID: [id number]
--- NOTE | 2019-05-21 15:10 | PQF ---
CLINICAL DOCUMENTATION IMPROVEMENT CLARIFICATION FORM: ICD-10 Updated PLEASE DO AN ADDENDUM TO THE PROGRESS NOTE WITH ANY DOCUMENTATION UPDATES OR ADDITIONS AND CARRY THROUGH TO DC SUMMARY. THANK YOU. DATE: 05/22/19 ATTN: DR. BAUTISTA Please exercise your independent, professional judgment in responding to the clarification form. Clinical indicators are provided on the bottom of this form for your review Please check appropriate box(s): [ ] Acute blood loss anemia [ x ] Post-op anemia related to acute blood loss [ ] Anemia: [ ] Aplastic [ ] Nutritional [ ] Drug induced (specify) ___ [ ] Hemolytic [ ] Hereditary [ ] Acquired [ ] Autoimmune [ ] Non-autoimmune [ ] Enzyme disorder [ ] Chronic Anemia: [ ] Blood loss [ ] Hemolytic [ ] Simple [ ] Due to Vitamin B12 Deficiency [ ] Other [ ] Anemia of Chronic Disease (please specify) [ ] Anemia due to Neoplasm: [ ] Primary [ ] Secondary [ ] Anemia due to (please choose): [ ] Due to Chemotherapy [ ] Due to Radiotherapy [ ] Due to Immunotherapy [ ] Other diagnosis [ ] Unable to determine In addition, please specify: Present on Admission (POA): [ ] Yes [ x ] No [ ] Unable to determine For continuity of documentation, please document condition throughout progress notes and discharge summary. Thank You. CLINICAL INDICATORS - SIGNS / SYMPTOMS / LABS PROGRESS NOTE 05/19: "ANEMIA" HGN 6: 11.5 HGN 05/18: 7.9 RISKS: CABG 05/14 TREATMENT: BLOOD TRANSFUSION SERIAL LABS (This form is maintained as a part of the permanent medical record) 2014 [employer]. All Rights Reserved [email or web address] Office: [phone] STACIA
--- NOTE | 2019-05-21 15:27 | PQF ---
CLINICAL DOCUMENTATION IMPROVEMENT CLARIFICATION FORM: ICD-10 Updated PLEASE DO AN ADDENDUM TO THE PROGRESS NOTE WITH ANY DOCUMENTATION UPDATES OR ADDITIONS AND CARRY THROUGH TO DC SUMMARY. THANK YOU. DATE: 05/22/19 ATTN: DR. BAUTISTA Please exercise your independent, professional judgment in responding to the clarification form. Clinical indicators are provided on the bottom of this form for your review Please check appropriate box(s): [ ] Aspiration Pneumonia [ ] Aspiration Bronchitis [ ] Empirically treating Gram Negative Pneumonia [ ] Empirically treating Anaerobic Pneumonia [ ] Pneumonia secondary to (specify organism / underlying disease) [ ] Simple Pneumonia (community acquired - nosocomial) [ ] Bronchopneumonia [ ] Pneumonia of unknown etiology [ x ] Other diagnosis _COPD exacerbation [ ] Unable to determine In addition, please specify: Present on Admission (POA): [ x ] Yes [ ] No [ ] Unable to determine For continuity of documentation, please document condition throughout progress notes and discharge summary. Thank You. CLINICAL INDICATORS - SIGNS / SYMPTOMS / LABS PROGRESS NOTE 05/19-05/20: "PNEUMONIA" CHEST XRAY 05/19: "DIFFUSE BILATERAL PULMONARY INFILTRATES" WBC 14.5 RISKS: SEPSIS COPD SURGERY 05/14 TREATMENT: PULMICORT NEBS 05/14-PRESENT DUONEBS (05/15-PRESENT) LEVAQUIN (05/20-PRESENT) IV VANCOMYCIN (ER) IV ZOSYN (ER) SPUTUM CULTURE (This form is maintained as a part of the permanent medical record) 2014 [employer]. All Rights Reserved [email or web address] Office: [phone] [email or web address]ITAL[facility]
--- NOTE | 2019-05-21 15:35 | PQF ---
CLINICAL DOCUMENTATION IMPROVEMENT CLARIFICATION FORM: ICD-10 Updated PLEASE DO AN ADDENDUM TO THE PROGRESS NOTE WITH ANY DOCUMENTATION UPDATES OR ADDITIONS AND CARRY THROUGH TO DC SUMMARY. THANK YOU. DATE: 05/22/19 ATTN: DR. BAUTISTA Please exercise your independent, professional judgment in responding to the clarification form. Clinical indicators are provided on the bottom of this form for your review Please check appropriate box(s): HEART FAILURE: A. TYPE: [ ] Systolic / HFrEF [ ] Diastolic / HFpEF [ ] Combined Systolic / Diastolic B. ACUITY [ ] Acute [ ] Acute on Chronic [ ] Chronic [ x ] Other diagnosis _diastolic dysfunction [ ] Unable to determine In addition, please specify: Present on Admission (POA): [ x ] Yes [ ] No [ ] Unable to determine For continuity of documentation, please document condition throughout progress notes and discharge summary. Thank You. CLINICAL INDICATORS - SIGNS / SYMPTOMS / LABS ECHO 05/13: NORMAL EF WITH E/A REVERSAL SUGGESTIVE OF DIASTOLIC DYSFUNCTION" OP REPORT: "ACUTE SYSTOLIC HEART FAILURE" PULMONARY NOTE 05/18: "PULMONARY EDEMA" PULMONARY NOTE 05/20: "NORMAL L VENTRICULAR EF PRIOR TO SURGERY WITH DIASTOLIC DYSFUNCTION" RISKS: HYPERTENSION CAD TREATMENT: ECHOCARDIOGRAM CARDIAC MONITORING LASIX 05/19-05/21 (This form is maintained as a part of the permanent medical record) [employer] 2015 [employer]. All Rights Reserved BARI [email or web address] Office: [phone] [employer]
--- NOTE | 2019-05-21 18:24 | PRG ---
DATE OF SERVICE: 05/21/2019 SUBJECTIVE: Mr. Barroso is doing much better. He appears to be stable as far as O2 saturations. No current symptoms. OBJECTIVE: VITAL SIGNS: Blood pressure 93/68, pulse 98, and temperature afebrile. LUNGS: Clear to auscultation. HEART: Regular rate and rhythm. ABDOMEN: Soft, nontender, and nondistended. EXTREMITIES: No edema. PERTINENT LABORATORY DATA: Hemoglobin 9.5. Creatinine 1.48. IMPRESSION: 1. Coronary artery disease. 2. Statu post bypass surgery. 3. Chronic obstructive pulmonary disease. RECOMMENDATIONS: Continue aspirin in addition to atorvastatin. We will hold low-dose metoprolol due to hypotension. May need IV fluids given increased creatinine and low blood pressure. We will also consider rehab. Job ID: [id number]
[2019-05-21] MEDS: Atorvastatin Calcium 40 MG TAB PO SCH (21:31)
[2019-05-22] MEDS: HYDROcodone/Acetaminophen 5/325 mg Tablet PO PRN ×3 (03:19→23:20)
[2019-05-22 06:06] LABS: #Eosinphils 0.2 thou/uL (0.0-0.7); #Lymphocytes 1.3 thou/uL (1.20-3.40); #Monocytes 1.2 thou/uL (0.11-0.59); #Neutrophils 7.9 thou/uL (1.40-6.50); %Basophils 0.2 % (0.0-1.0); %Eosinophils 1.7 % (0.0-10.0); %Lymphocytes 12.5 % (21.0-51.0); %Monocytes 11.1 % (0.0-10.0); %Neutrophils 74.6 % (42.0-75.0); Hemoglobin 9.8 g/dL (14.0-18.0); Mean Corpuscular HGB CONC 32.4 g/dL (32.0-36.0); Mean Corpuscular Hemoglobin 31.3 pg (27.0-31.0); Mean Corpuscular Volume 96.5 fL (78.0-98.0); Mean Platelet Volume 6.5 fL (7.4-10.4); Platelet Count 249 thou/uL (130-400); RBC Distribution Width 13.4 % (11.5-14.5); Red Blood Cell (RBC) Count 3.14 mill/uL (4.70-6.10); White Blood Cell (WBC) Count 10.5 thou/uL (4.8-10.8)
[2019-05-22 06:29] LABS: Anion Gap 13 mmol/L (10-20); BUN (Urea Nitrogen) 35 mg/dL (8.4-25.7); Calc. Creatinine Clearance 43 mL/min (70-130); Calcium 9.3 mg/dL (7.8-10.44); Carbon Dioxide 28 mmol/L (23-31); Chloride 93 mmol/L (98-107); Estimated GFR-MDRD 48; Glucose 96 mg/dL (80-115); Potassium 3.8 mmol/L (3.5-5.1); Sodium 130 mmol/L (136-145)
[2019-05-22] MEDS: Budesonide 0.5 MG/2 ML NEB INH SCH ×2 (07:16→19:35)
[2019-05-22] MEDS: Docusate 100 MG CAP PO SCH ×2 (08:38→20:05)
[2019-05-22] MEDS: Famotidine 20 MG TAB PO SCH ×2 (08:38→20:06)
[2019-05-22] MEDS: Aspirin Chewable 81 MG TAB PO SCH (08:38)
--- NOTE | 2019-05-22 10:01 | PRG ---
DATE OF SERVICE: 05/22/2019 SUBJECTIVE: Mr. Barroso is doing well. He dropped his sats to 88 with a 2 L cannula and just getting the bedside commode and gets out of breath, but he is getting a little bit stronger every day. OBJECTIVE: VITAL SIGNS: He is afebrile, heart rates in the 90s, respiratory rate 16, oximetry is 90% on 1 L at rest. LUNGS: Remarkable for fine crackles at his bases. I do not hear any wheezes. HEART: Regular rhythm. ABDOMEN: Soft and nontender. EXTREMITIES: Without edema. NEURO: Nonfocal. LABORATORY DATA: White count 10.5, hemoglobin 9.8, platelets 249. Sodium 130, potassium 3.8, chloride 93, bicarb 28, BUN 35, creatinine 1.48. Creatinine was 1.03 on the 7th. IMPRESSION AND PLAN: 1. Status post coronary artery bypass grafting done urgently. 2. Probable underlying significant chronic obstructive pulmonary disease. He is worried he could walk at least a block without stopping prior to admission. Looking at his lab work, he may be getting a little dry from an intravascular volume standpoint. He continues budesonide twice a day and ipratropium and albuterol every 4 hours while awake. He was started on Levaquin 2 days ago by the hospitalist. I am not really sure why. We will continue to follow him because of his lung disease. He is not on steroids to facilitate wound healing. He is getting nebulized steroids. He appears to be stable at this time. Job ID: [id number]
--- NOTE | 2019-05-22 15:14 | PDOC.CTH ---
Cardiology Progress Note - Subjective No new complaints today. Still feels intermittent weak. - Objective Vital Signs Temp Pulse Pulse Pulse Pulse Resp BP 05/22/19 14:37 108 H 16 05/22/19 14:06 120 H 109 H 106/69 05/22/19 11:46 97.5 F L 103 H 18 05/22/19 10:45 105 H 16 05/22/19 10:09 109 H 102 H 92/62 05/22/19 08:16 101 H 102 H 125/80 05/22/19 07:16 91 16 05/22/19 07:13 97 16 05/22/19 07:03 97.6 F 96 17 05/22/19 04:00 98.2 F 99 19 BP BP BP Pulse Ox Pulse Ox Pulse Ox Pulse Ox 05/22/19 14:37 94 L 05/22/19 14:06 108/70 93 L 93 L 05/22/19 11:46 107/67 99 05/22/19 10:45 92 L 05/22/19 10:09 117/62 92 L 05/22/19 08:16 118/80 96 86 L 91 L 05/22/19 07:16 90 L 05/22/19 07:13 90 L 05/22/19 07:03 112/74 96 05/22/19 04:00 110/64 94 L Admit Weight 143 lb 4.807 oz Weight 137 lb 9.095 oz 05/21/19 05/22/19 05/23/19 06:59 06:59 06:59 Intake Total 970 1530 Output Total 100 1345 Balance 870 185 - Physical Examination Neck: no JVD present Lungs: CTA, other: (decreased BS bilaterally) Heart: other: (tachy, regular) Abdomen: NT/ND - Telemetry Telemetry Rhythm: ST - Labs Result Diagrams: 05/22/19 05:06 05/22/19 05:06 Troponin/CKMB CK-MB (CK-2) 4.8 ng/mL (0-6.6) 05/14/19 02:14 Troponin I 0.134 ng/mL (< 0.028) H 05/14/19 02:14 - Assessment/Plan 1. CAD s/p CABG 2. COPD 3. Sinus tachy 4. Hypotension Will continue easy hydration. No bblocker at this time given hypotension.
--- NOTE | 2019-05-22 15:53 | PDOC.PN ---
- Subjective Encounter Start Date: 05/22/19 Encounter Start Time: 15:45 Subjective: f/u s/p CABG x 4v POD #8, PNA on Levaquin. Feels generally weak -: and nursing reports hypoxia with minor movement and ambulating. - Objective Resuscitation Status - Order Detail: 05/13/19 09:03 Resuscitation Status Routine Resuscitation Status: FULL: Full Resuscitation MAR Reviewed: Yes Vital Signs & Weight: Vital Signs (12 hours) Temp Pulse Pulse Pulse Pulse Resp BP 05/22/19 15:43 97.5 F L 114 H 18 05/22/19 14:37 108 H 16 05/22/19 14:06 120 H 109 H 106/69 05/22/19 11:46 97.5 F L 103 H 18 05/22/19 10:45 105 H 16 05/22/19 10:09 109 H 102 H 92/62 05/22/19 08:16 101 H 102 H 125/80 05/22/19 07:16 91 16 05/22/19 07:13 97 16 05/22/19 07:03 97.6 F 96 17 05/22/19 04:00 98.2 F 99 19 BP BP BP BP Pulse Ox Pulse Ox Pulse Ox 05/22/19 15:43 103/63 99 05/22/19 14:37 94 L 05/22/19 14:06 108/70 93 L 93 L 05/22/19 11:46 107/67 99 05/22/19 10:45 92 L 05/22/19 10:09 117/62 92 L 05/22/19 08:16 118/80 96 86 L 05/22/19 07:16 90 L 05/22/19 07:13 90 L 05/22/19 07:03 112/74 96 05/22/19 04:00 110/64 94 L Pulse Ox 05/22/19 15:43 05/22/19 14:37 05/22/19 14:06 05/22/19 11:46 05/22/19 10:45 05/22/19 10:09 05/22/19 08:16 91 L 05/22/19 07:16 05/22/19 07:13 05/22/19 07:03 05/22/19 04:00 Weight Admit Weight 143 lb 4.807 oz Weight 137 lb 9.095 oz Most Recent Monitor Data Heart Rate from ECG 94 NIBP 99/64 NIBP BP-Mean 75 Respiration from ECG 17 SpO2 91 I&O: 05/21/19 05/22/19 05/23/19 06:59 06:59 06:59 Intake Total 970 1530 Output Total 100 1345 Balance 870 185 Result Diagrams: 05/22/19 05:06 05/22/19 05:06 Radiology Reviewed by me: Yes (PCXR - no acute infiltrates) EKG Reviewed by me: Yes (Tele - sinus tachycardia) Phys Exam - Physical Examination Constitutional: NAD alert, frail, responsive HEENT: PERRLA, sclera anicteric, oral pharynx no lesions Neck: no nodes, no JVD, supple, full ROM diminished in bases Respiratory: no wheezing tachycardic S1, S2 Cardiovascular: no significant murmur, no rub, gallop Gastrointestinal: soft, non-tender, no distention, positive bowel sounds Musculoskeletal: no edema, pulses present Neurological: normal sensation, moves all 4 limbs Psychiatric: A&O x 3 Skin: normal turgor, cap refill <2 seconds Dx/Plan (1) Acute on chronic respiratory failure with hypoxemia Code(s): J96.21 - ACUTE AND CHRONIC RESPIRATORY FAILURE WITH HYPOXIA Status: Acute Comment: Likely multifactorial, continue O2 supplementation, may need home O2, add Prednisone (2) CAD (coronary artery disease) Code(s): I25.10 - ATHSCL HEART DISEASE OF [place] CORONARY ARTERY W/O ANG PCTRS Status: Acute Comment: S/p CABG x 4v POD #8, continue ASA, Lipitor (3) COPD (chronic obstructive pulmonary disease) Status: Chronic Comment: See above, continue Duonebs, Pulmicort (4) S/P CABG x 4 Status: Acute Comment: POD #8 (5) FANTASMA (acute kidney injury) Code(s): N17.9 - ACUTE KIDNEY FAILURE, UNSPECIFIED Status: Acute Comment: Avoid nephrotoxic meds and limit contrast exposure, decrease Levaquin 500mg daily - Plan continue antibiotics, PT/OT, legal services professional, respiratory therapy, out of bed/ ambulate, DVT proph w/SCDs Stable currently -: CM for home O2 setup -: OOB/ambulate -: Add Prednisone 40mg po x 1 then 20mg daily -: Decrease Levaquin 500mg po daily * AM lab: BMP * Likely home in 24-48h
[2019-05-22] MEDS ORDERED: predniSONE 20 MG TAB PO SCH (16:15)
[2019-05-22] MEDS: Atorvastatin Calcium 40 MG TAB PO SCH (20:05)
[2019-05-23] MEDS: HYDROcodone/Acetaminophen 5/325 mg Tablet PO PRN (04:27)
[2019-05-23 04:28] VITALS: TEMP 97.3
[2019-05-23] MEDS: Budesonide 0.5 MG/2 ML NEB INH SCH (06:55)
[2019-05-23 07:45] LABS: Anion Gap 15 mmol/L (10-20); BUN (Urea Nitrogen) 32 mg/dL (8.4-25.7); Calc. Creatinine Clearance 45 mL/min (70-130); Calcium 9.8 mg/dL (7.8-10.44); Carbon Dioxide 25 mmol/L (23-31); Chloride 95 mmol/L (98-107); Estimated GFR-MDRD 50; Glucose 104 mg/dL (80-115); Potassium 4.1 mmol/L (3.5-5.1); Sodium 131 mmol/L (136-145)
[2019-05-23] MEDS ORDERED: predniSONE 20 MG TAB PO SCH (08:00)
[2019-05-23] MEDS: Aspirin Chewable 81 MG TAB PO SCH (09:00)
[2019-05-23] MEDS: Famotidine 20 MG TAB PO SCH (09:01)
[2019-05-23] MEDS: Docusate 100 MG CAP PO SCH (09:01)
[2019-05-23] MEDS ORDERED: Carvedilol 3.125 MG TAB PO SCH (10:45)
--- NOTE | 2019-05-23 12:49 | PRG ---
DATE OF SERVICE: 05/23/2019 SUBJECTIVE: The patient feels okay. Had no acute complaints. He wants to go home. OBJECTIVE: VITAL SIGNS: Temperature 97.3, pulse 107, respirations 20, O2 saturation 98% on 2 L. HEENT: Unremarkable. NECK: No JVD. CHEST: Clear to auscultation. CARDIAC: S1 and S2. Regular. Midline sternal wound appears to be healing well. ABDOMEN: Soft, nontender. EXTREMITIES: No edema. ASSESSMENT: 1. Status post coronary artery bypass graft. 2. Chronic obstructive pulmonary disease, which is clinically stable. PLAN: He is cleared to go home from our standpoint. Follow up with Dr. Barrios as an outpatient. Job ID: [id number]
[2019-05-23 15:19] VITALS: BP 145/80
--- NOTE | 2019-05-23 22:03 | DIS ---
DATE OF ADMISSION: 05/13/2019 DATE OF DISCHARGE: 05/23/2019 DISCHARGE DIAGNOSES: 1. Acute on chronic hypoxemic respiratory failure, multifactorial, improved. 2. Coronary artery disease. 3. Status post coronary artery bypass grafting x4 vessels on 05/14/2019. 4. Chronic obstructive pulmonary disease. 5. Acute kidney injury on chronic kidney disease. 6. Hyponatremia, mild. CONSULTATIONS: 1. Dr. Julián Erickson with Cardiology Service. 2. Dr. Barrios with Pulmonology Critical Care Service. 3. Dr. Veliz with Cardiovascular Surgery Service. PERTINENT LABORATORY AND X-RAY FINDINGS: Sodium ranged between 130 to 141. Creatinine ranged between 1.03 to 1.51. Estimated GFR ranged between 46 to 72. Troponin I ranged between 0.026 to 0.215. BNP 41.6. CBC showed a white blood cell count ranged between 8.0 to 45.2. Blood cultures x2 dated 05/13/2019, showed no growth at 5 days. Influenza A and B antigen dated 05/13/2019, negative. Sputum culture dated 05/14/2019, showed presumptive Estephanie albicans. Portable chest x-ray dated 05/13/2019, showed diffuse interstitial and alveolar opacities, chronic in nature. CT angiogram of the chest dated 05/13/2019, showed no evidence for pulmonary embolus. Emphysematous changes bilaterally. Cardiac catheterization dated 05/14/2019, showed 3-vessel coronary artery disease involving the LAD, first and second obtuse marginal and proximal and distal right coronary artery. 2D transthoracic echocardiogram dated 05/13/2019, showed ejection fraction of 55% to 60%. Diastolic dysfunction. HOSPITAL COURSE: The patient was initially admitted after presenting with shortness of breath. The patient was initially noted with hypoxemia at the time of admission, requiring 3 L of oxygen per nasal cannula. The patient was treated for questionable COPD exacerbation with potential underlying infectious component. CT imaging of the chest did reveal evidence of emphysematous changes and chronic obstructive changes given the patient's long-term tobacco abuse. The patient received general pulmonary supportive management in addition to bronchodilator therapy and clinically stabilized. The patient was also noted with elevated troponin I at the time of admission with associated chest pain and EKG changes concerning for ischemia. The patient underwent left heart catheterization showing diffuse 3-vessel coronary artery disease with recommendations for coronary artery bypass grafting. The patient underwent evaluation by the Cardiovascular Surgery Service, undergoing coronary artery bypass grafting on 05/14/2019, with 4-vessel grafting. The patient was managed postoperatively per CABG protocol requiring a pulmonary supportive management due to chronic obstructive pulmonary disease. The patient eventually transitioned to the telemetry unit meeting appropriate milestones. The patient was noted with generalized weakness, however, was evaluated by the cardiac rehab team, ambulating with assistance. The patient was noted with persistent hypoxia requiring oxygen supplementation at low volume 1-3 L/minute by nasal cannula. The patient was evaluated and met criteria for home oxygen, which will be set up at the time of discharge. The patient overall clinically stabilized regarding his cardiac and respiratory status prior to discharge. I have examined the patient at the time of discharge and discussed followup instructions. The patient verbalized understanding and agreement ready for discharge on 05/23/2019. DISCHARGE MEDICATIONS: 1. [place]-3 fatty acids 1 capsule p.o. b.i.d. 2. Enteric-coated aspirin 81 mg p.o. daily. 3. Lipitor 40 mg p.o. at bedtime. 4. Coreg 1.5625 mg p.o. b.i.d. 5. DuoNeb 3 mL nebulized q.4 hours p.r.n. 6. Levaquin 500 mg p.o. daily x5 days. 7. Prednisone 20 mg p.o. daily x3 days, followed by half a tab p.o. daily x3 days. FOLLOWUP: The patient may follow up with his primary care provider, Dr. Meoldy Peng within 7 days of discharge. The patient will follow up with Dr. Julián Erickson with Cardiology Service on 05/26/2019, at 1:30 pm. The patient will follow up with Dr. Veliz with Cardiothoracic Surgery Service and to call his office for appointment time and date. CONDITION ON DISCHARGE: Stable. ACTIVITY: Ad-johan. DIET: Heart healthy. CODE STATUS: Full. SPECIAL INSTRUCTIONS: Home oxygen at 2 to 3 L/minute by nasal cannula continuously. DISPOSITION: Home on 05/23/2019. TIME SPENT: Total time preparing and coordinating discharge, 37 minutes. Job ID: [id number]
== END 2019-05-23 18:27 | disposition home or self-care (01) | DRG 853 ==
LOC: ERS 02:20 → IMCU/EMU 06:57 → CCU 05-14 03:14 → 2NO 05-19 22:38
PROVIDERS: ADMIT Internal Medicine; ATTEND Internal Medicine
PROC: 02100Z9 Bypass Coronary Artery, One Artery from Left Internal Mammary, Open Approach (ICD-10-PCS; principal; 2019-05-14)
PROC: 021209W Bypass Coronary Artery, Three Arteries from Aorta with Autologous Venous Tissue, Open Approach (ICD-10-PCS; 2019-05-14)
PROC: 06BQ4ZZ Excision of Left Saphenous Vein, Percutaneous Endoscopic Approach (ICD-10-PCS; 2019-05-14)
PROC: 5A1221Z Performance of Cardiac Output, Continuous (ICD-10-PCS; 2019-05-14)
PROC: 4A023N7 Measurement of Cardiac Sampling and Pressure, Left Heart, Percutaneous Approach (ICD-10-PCS; 2019-05-14)
PROC: B2111ZZ Fluoroscopy of Multiple Coronary Arteries using Low Osmolar Contrast (ICD-10-PCS; 2019-05-14)
PROC: B2151ZZ Fluoroscopy of Left Heart using Low Osmolar Contrast (ICD-10-PCS; 2019-05-14)
PROC: 30233N1 Transfusion of Nonautologous Red Blood Cells into Peripheral Vein, Percutaneous Approach (ICD-10-PCS; 2019-05-18)
DX: A41.9 Sepsis, unspecified organism (principal); J96.21 Acute and chronic respiratory failure with hypoxia; J18.9 Pneumonia, unspecified organism; E87.1 Hypo-osmolality and hyponatremia; I25.110 Atherosclerotic heart disease of native coronary artery with unstable angina pectoris; D62 Acute posthemorrhagic anemia; J44.1 Chronic obstructive pulmonary disease with (acute) exacerbation; N17.9 Acute kidney failure, unspecified; E78.5 Hyperlipidemia, unspecified; N18.3 Chronic kidney disease, stage 3 (moderate); I12.9 Hypertensive chronic kidney disease with stage 1 through stage 4 chronic kidney disease, or unspecified chronic kidney disease; E87.6 Hypokalemia; I73.9 Peripheral vascular disease, unspecified; I16.0 Hypertensive urgency; Z79.82 Long term (current) use of aspirin; Z87.891 Personal history of nicotine dependence; Z80.8 Family history of malignant neoplasm of other organs or systems; Z82.49 Family history of ischemic heart disease and other diseases of the circulatory system
CPT/HCPCS: 36415; 36416; 36430; 71045; 71275; 80048; 80053; 81003; 82553; 82805; 83605; 83880; 84484; 85025; 85610; 86850; 86900; 86901; 87040; 87070; 87205; 87804; 89220; 93005; 93010; 93306; 93458; 93798; 94002; 94003; 94150; 94640; 94660; 94760; 96365; 96367; 99152; C1769; J0690; J1100; J1642; J1644; J1650; J1815; J1940; J2001; J2150; J2250; J2270; J2370; J2405; J2440; J2543; J2704; J2720; J2920; J2930; J3010; J3370; J3475; J3480; J3490; J7050; J7070; J7512; J7620; J7626; P9016; P9045; Q9967; S0017; S0028

== ENCOUNTER 2019-07-23 11:03 | Outpatient (CLI) | payer MEDICARE, MEDICAID ==
--- NOTE | 2019-07-23 11:36 | RAD ---
EXAM: Two views chest PROVIDED CLINICAL HISTORY: Post CABG. COMPARISON: 05/21/2019. FINDINGS: Again noted are postsurgical changes related to median sternotomy. Cardiac silhouette and pulmonary v asculature are within normal limits. Mild scattered interstitial densities are seen likely due to mild chronic lung changes. A calcified granuloma is again seen at the left lung base. No consolidatio n or pleural fluid is identified. Vascular calcifications are seen in the thoracic aorta. There is mild right convex curvature of the thoracolumbar spine. Chest is overall stable compared to the prior exam IMPRESSION: Stable chest without evidence of an acute cardiopulmonary process..
== END 2019-07-23 11:04 | disposition home or self-care (01) ==
LOC: RAD 11:03
PROVIDERS: ATTEND Internal Medicine Critical Care Medicine
DX: R06.00 Dyspnea, unspecified (principal)
CPT/HCPCS: 71046

== ENCOUNTER 2019-10-07 10:02 | Outpatient (CLI) | payer MEDICARE, MEDICAID ==
--- NOTE | 2019-10-07 11:28 | CT ---
EXAM: CT angiogram neck with IV contrast and 3-D reconstructions PROVIDED CLINICAL HISTORY: Carotid artery stenosis. Patient reports prior surgery to carotid arteries but unsure of which side. COMPARISON: 11/08/2017 FINDINGS: There is normal arrangement of the great vessels at the aortic arch. As noted on the prior examinatio n, the origin of the left subclavian artery is ectatic with irregular atherosclerotic plaque similar to the prior exam. There is also moderate sclerotic plaque seen at the origin of the right in nominate artery as well as at the origin of the right subclavian and right common carotid arteries. Mild narrowing is present at the origin and proximal right subclavian artery due to atherosclerotic p laque.. The left subclavian artery is obscured secondary to dense contrast in the left subclavian vein. The proximal left common carotid artery is not visualized due to significant artifact from the contra st in the left subclavian and innominate vein on the left. There is mild atherosclerotic plaque seen in the left common carotid artery. Postsurgical changes related to left carotid artery endartere ctomy are again seen. The left internal carotid artery is tortuous but patent. Mild atherosclerotic plaque involves the right common carotid artery with dense vascular calcificatio ns and atherosclerotic plaque seen at the right carotid artery bifurcation. There is a long segment of moderate narrowing involving the proximal left internal carotid artery with progression in degree of narrowing involving the proximal right internal carotid artery with focal area of severe stenosis (greater than 70%) secondary to eccentric atherosclerotic plaque and calcifications. Dense vascular calcifications are seen in the carotid siphons bilaterally. The origins of each vertebral artery are obscured due to vascular calcifications. The vertebral arter ies are otherwise codominant and patent with mild atherosclerotic irregularity involving the more distal vertebral arteries bilaterally. The visualized basilar artery is patent. Degenerative changes are again seen in the cervical spine. Median sternotomy wires are present. Chronic lung changes are seen in the upper lung zones and lung apices with evidence of emphysematous changes and chronic interstitial appearing lung changes present. IMPRESSION: 1. Atherosclerotic plaque and prominent atherosclerotic calcifications involving the distal right com mon carotid artery and right carotid bifurcation as well as proximal right internal carotid artery. There is a narrowing involving the origin and proximal right internal carotid artery, but there has b een progression in degree of narrowing compared to prior exam with a short segment focal area of severe (greater than 70% narrowing) involving the proximal right internal carotid artery. 2. Evidence of left carotid endarterectomy, and the left internal carotid artery is patent. 3. 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 There is also mild narrowing and atherosclerotic irregularity involving the origin of the right subclavian artery. 4. Chronic lung changes.
== END 2019-10-07 10:03 | disposition home or self-care (01) ==
LOC: BICCT 10:02
PROVIDERS: ATTEND Thoracic Surgery (Cardiothoracic Vascular Surgery)
DX: I65.21 Occlusion and stenosis of right carotid artery (principal); I77.810 Thoracic aortic ectasia
CPT/HCPCS: 70498; 82565

== ENCOUNTER 2019-11-17 06:17 | Outpatient (CLI) | payer MEDICARE, MEDICAID ==
[2019-11-17 13:48] LABS: Hemoglobin 15.3 g/dL (14.0-18.0); Mean Corpuscular HGB CONC 33.2 g/dL (32.0-36.0); Mean Corpuscular Hemoglobin 31.3 pg (27.0-31.0); Mean Corpuscular Volume 94.4 fL (78.0-98.0); Mean Platelet Volume 6.5 fL (7.4-10.4); Platelet Count 185 thou/uL (130-400); RBC Distribution Width 12.1 % (11.5-14.5); Red Blood Cell (RBC) Count 4.87 mill/uL (4.70-6.10); White Blood Cell (WBC) Count 7.8 thou/uL (4.8-10.8)
[2019-11-17 14:12] LABS: Anion Gap 13 mmol/L (10-20); BUN (Urea Nitrogen) 25 mg/dL (8.4-25.7); Calc. Creatinine Clearance 0 mL/min (70-130); Carbon Dioxide 27 mmol/L (23-31); Chloride 105 mmol/L (98-107); Estimated GFR-MDRD 67; Glucose 79 mg/dL (80-115); Potassium 4.5 mmol/L (3.5-5.1); Sodium 140 mmol/L (136-145)
--- NOTE | 2019-11-20 15:16 | EKG ---
Test Reason : Blood Pressure : / mmHG Vent. Rate : 063 BPM Atrial Rate : 063 BPM P-R Int : 194 ms QRS Dur : 090 ms QT Int : 422 ms P-R-T Axes : 077 086 072 degrees QTc Int : 431 ms Normal sinus rhythm with sinus arrhythmia Normal ECG When compared with ECG of 14-MAY-2019 14:04, Vent. rate has decreased BY 39 BPM Nonspecific T wave abnormality no longer evident in Inferior leads QT has shortened Confirmed by DR. Jackelyn BROWN ([id number]) on 11/20/2019 3:15:43 PM Referred By: KARI Confirmed By:DR. Jackelyn BROWN
== END 2019-11-17 06:18 | disposition home or self-care (01) ==
LOC: LABBT 06:17
PROVIDERS: ATTEND Thoracic Surgery (Cardiothoracic Vascular Surgery)
DX: Z01.818 Encounter for other preprocedural examination (principal); I65.21 Occlusion and stenosis of right carotid artery
CPT/HCPCS: 80048; 85027; 93005; 93010

== ENCOUNTER 2019-11-17 11:30 | Inpatient (IN) | payer MEDICARE, MEDICAID ==
--- NOTE | 2019-11-17 20:58 | HP ---
HISTORY OF PRESENT ILLNESS: This is a 69-year-old gentleman with multiple cardiovascular problems, who was seen about 6 weeks ago for routine followup. At that time, a carotid ultrasound was performed demonstrating left-sided velocities of 332 cm/second and diastolic velocities of 124 cm/second. This was followed up with a CT scan demonstrating a high-grade right carotid stenosis about 2 cm distal to the bulb. Surgical intervention was recommended and he has agreed to proceed with informed consent. CURRENT MEDICATIONS: Include: 1. Aspirin 81 daily. 2. Fish oil 3 capsules once daily. 3. Atorvastatin 40 daily. 4. Coreg 3.125 b.i.d. PAST MEDICAL HISTORY: Carotid artery stenosis, dyslipidemia, hypertension, coronary disease, peripheral vascular disease. PAST SURGICAL HISTORY: Left carotid endarterectomy 2010, aortobifemoral bypass 2009, coronary bypass grafting 05/29 with bypass graft x4, MERINO to the LAD, saphenous vein graft to the OM, posterior lateral and distal posterior descending. SOCIAL HISTORY: The patient has not smoked in several years. He drinks 2-3 times a week. He lives alone. ALLERGIES: HE HAS NO KNOWN ALLERGIES. PHYSICAL EXAMINATION: VITAL SIGNS: On examination, his blood pressure is 120/70, height 5 feet 11 inches, weight 150, heart rate 66. NECK: Harsh right carotid bruit. CARDIAC: Regular rate and rhythm. No murmurs. LUNGS: Clear to auscultation with some slight dyspnea at rest. CHEST: Sternum stable. EXTREMITIES: No edema with palpable femoral pulses. PLAN: At this time is right carotid endarterectomy. Job ID: [id number]
[2019-11-18] MEDS ORDERED: Heparin 5,000 UNITS/ML VIAL ONE (06:34)
[2019-11-18] MEDS ORDERED: Protamine Sulfate 50 MG/5 ML VIAL ONE (06:34)
[2019-11-18] MEDS ORDERED: Fentanyl 100 MCG/2 ML VIAL ONE (07:21)
[2019-11-18] MEDS ORDERED: Ondansetron PF 4 MG/2 ML Vial ONE (09:15)
[2019-11-18] MEDS ORDERED: PHENYLEPHRINE-NS 100 MCG/ML 10 ML SYRINGE ONE (09:15)
[2019-11-18] MEDS ORDERED: PROPOFOL 200 MG/20 ML VIAL ONE (09:15)
[2019-11-18] MEDS ORDERED: Ketorolac Tromethamine 30 MG/ML VIAL ONE (09:15)
[2019-11-18] MEDS ORDERED: Rocuronium Bromide 10 MG/ML (10ML VIAL) ONE (09:15)
[2019-11-18] MEDS ORDERED: Glycopyrrolate 0.2 MG/ML 5 ML SYRINGE ONE (09:15)
[2019-11-18] MEDS ORDERED: ePHEDrine/0.9% NaCl/PF SYRINGE 50 mg/10 ml ONE (09:15)
[2019-11-18] MEDS ORDERED: Promethazine HCl 25 MG/ML VIAL SLOW IVP PRN (09:42)
[2019-11-18] MEDS ORDERED: Promethazine HCl 25 MG/ML VIAL IM PRN ×2 (09:42→09:57)
[2019-11-18] MEDS ORDERED: Ondansetron HCl/PF 4 MG/2 ML Vial IVP PRN (09:42)
[2019-11-18] MEDS ORDERED: Fentanyl 100 MCG/2 ML VIAL SLOW IVP PRN ×2 (09:57)
[2019-11-18] MEDS ORDERED: Sodium Chloride 0.9% 1,000 ML IV SCH (09:57)
[2019-11-18] MEDS ORDERED: Acetaminophen 325 MG TAB PO PRN (09:57)
[2019-11-18] MEDS ORDERED: niCARdipine 25 MG in Sodium Chloride 0.9% 250 ML 250 ML IVPB PRN (09:57)
[2019-11-18] MEDS ORDERED: Ondansetron PF 4 MG/2 ML Vial IVP PRN (09:57)
[2019-11-18] MEDS ORDERED: Norepinephrine 8 MG/0.9% NS 250 ML IVPB PRN (09:57)
--- NOTE | 2019-11-18 09:57 | OP ---
DATE OF PROCEDURE: 11/18/2019 PREOPERATIVE DIAGNOSIS: Critical right carotid stenosis. PROCEDURES PERFORMED: Right carotid endarterectomy with bovine patch angioplasty. ANESTHESIA: General. ESTIMATED BLOOD LOSS: Less than 100. DESCRIPTION OF PROCEDURE: After adequate anesthesia had been obtained, the patient was prepped and draped. Incision was made and carried down through the platysma. This carotid artery system was well posterior to the sternocleidomastoid muscle. After mobilizing the common internal and external carotid arteries, the vagus nerve was not identified or was the hypoglossal seen. After 7500 units of heparin with good ACT levels, clamps were applied. Arteriotomy performed through a severe stenosis and a 10-Turkish shunt was placed. Endarterectomy was then performed with nice tapering distally. A bovine patch was then used to close the arteriotomy with a running 6-0 Prolene suture. Prior to completing the suture line, vessels were backflushed and forward flushed and the area was thoroughly irrigated with heparinized saline. Flow was then restored up the external and then internal carotid artery. Heparin was partially reversed with protamine and after obtaining good hemostasis, the wound was irrigated and closed in layers. Job ID: [id number]
[2019-11-18] MEDS ORDERED: Carvedilol 3.125 MG TAB PO SCH (10:15)
[2019-11-18] MEDS ORDERED: Aspirin Chewable 81 MG TAB PO SCH (10:15)
[2019-11-18 10:46] VITALS: BMI 21.2
[2019-11-18] MEDS: CEFAZOLIN 2 GM in Premix Bag 1 BAG IVPB SCH ×2 (13:07→22:06)
[2019-11-18] MEDS: traMADol HCl 50 MG TAB PO PRN (20:54)
[2019-11-18] MEDS: Carvedilol 3.125 MG TAB PO SCH (20:54)
[2019-11-18] MEDS ORDERED: Atorvastatin Calcium 40 MG TAB PO SCH (21:00)
[2019-11-19] MEDS: traMADol HCl 50 MG TAB PO PRN (03:36)
[2019-11-19] MEDS ORDERED: Potassium Phosphate 12 MMOL in Sodium Chloride 0.9% 250 ML 250 ML IV PRN (05:56)
[2019-11-19] MEDS ORDERED: Potassium Chloride 40 MEQ in Sodium Chloride 0.9% 250 ML 250 ML IVPB PRN (05:56)
[2019-11-19] MEDS ORDERED: Magnesium 2 GM/50 ML 2 GM in Premix Bag 1 BAG IVPB PRN (05:56)
[2019-11-19] MEDS ORDERED: Potassium Phosphate 15 MMOL in Sodium Chloride 0.9% 250 ML 250 ML IV PRN (05:56)
[2019-11-19] MEDS ORDERED: PHOS-NAK 1 PKT PACK PO PRN ×2 (05:56)
[2019-11-19] MEDS ORDERED: Potassium Phosphate 9 MMOL in Sodium Chloride 0.9% 100 ML IVPB PRN (05:56)
[2019-11-19] MEDS ORDERED: Potassium Chloride 20 MEQ TAB PO PRN (05:56)
[2019-11-19] MEDS ORDERED: Magnesium Oxide 400 MG TAB PO PRN ×2 (05:56)
[2019-11-19] MEDS ORDERED: CCU ELECTROLYTE REPLACEMENT PROTOCOL FS PRN (05:56)
[2019-11-19] MEDS ORDERED: Potassium Chloride 40 MEQ in Premix Bag 1 BAG IVPB PRN (05:56)
[2019-11-19 08:07] VITALS: TEMP 97.7
[2019-11-19] MEDS: Carvedilol 3.125 MG TAB PO SCH (08:57)
[2019-11-19] MEDS ORDERED: Aspirin Chewable 81 MG TAB PO SCH (09:00)
[2019-11-19] MEDS ORDERED: CEFAZOLIN 2 GM in Premix Bag 1 BAG IVPB SCH (11:00)
--- NOTE | 2019-11-19 15:36 | DIS ---
DATE OF ADMISSION: 11/18/2019 DATE OF DISCHARGE: 11/19/2019 HOSPITAL COURSE: The patient was found to have critical right carotid stenosis on routine surveillance and underwent right carotid endarterectomy. His postoperative course was uneventful. He will be discharged home on his admitting medicines of aspirin 81 a day, atorvastatin 40 a day, Coreg 3.125 b.i.d., and fish oil. Discharge and followup instructions have been given. He did have significant bruising in his neck; however, the neck was soft with no hematoma palpable. He will be followed up in 2 to 3 weeks. Job ID: [id number]
== END 2019-11-19 12:12 | disposition home or self-care (01) | DRG 39 ==
LOC: SURG A 11-18 05:45 → CCU 11-18 10:19
PROVIDERS: ADMIT Thoracic Surgery (Cardiothoracic Vascular Surgery); ATTEND Thoracic Surgery (Cardiothoracic Vascular Surgery)
PROC: 03CK0ZZ Extirpation of Matter from Right Internal Carotid Artery, Open Approach (ICD-10-PCS; principal; 2019-11-18)
PROC: 03UM0KZ Supplement Right External Carotid Artery with Nonautologous Tissue Substitute, Open Approach (ICD-10-PCS; 2019-11-18)
PROC: 03UK0KZ Supplement Right Internal Carotid Artery with Nonautologous Tissue Substitute, Open Approach (ICD-10-PCS; 2019-11-18)
PROC: 03CM0ZZ Extirpation of Matter from Right External Carotid Artery, Open Approach (ICD-10-PCS; 2019-11-18)
DX: I65.21 Occlusion and stenosis of right carotid artery (principal); Z79.82 Long term (current) use of aspirin; Z79.899 Other long term (current) drug therapy; E78.5 Hyperlipidemia, unspecified; I10 Essential (primary) hypertension; I25.10 Atherosclerotic heart disease of native coronary artery without angina pectoris; Z95.1 Presence of aortocoronary bypass graft; Z87.891 Personal history of nicotine dependence
CPT/HCPCS: 80048; 85027; 93005; J0690; J1642; J1644; J1885; J2405; J2704; J2720; J3010

== ENCOUNTER 2021-02-23 10:54 | Outpatient (CLI) | payer MEDICARE, MEDICAID | END 2021-02-23 10:55 | disposition home or self-care (01) | LOC: BICRAD 10:54 | PROVIDERS: ATTEND Internal Medicine Critical Care Medicine | DX: R06.00 Dyspnea, unspecified (principal); J84.9 Interstitial pulmonary disease, unspecified | CPT/HCPCS: 71046 ==

== ENCOUNTER 2022-02-21 10:17 | Outpatient (CLI) | payer MEDICARE, MEDICAID | END 2022-02-21 10:18 | disposition home or self-care (01) | LOC: RAD 10:17 | PROVIDERS: ATTEND Internal Medicine Critical Care Medicine | DX: R06.00 Dyspnea, unspecified (principal); R91.8 Other nonspecific abnormal finding of lung field | CPT/HCPCS: 71046 ==

== ENCOUNTER 2022-10-01 15:18 | Emergency (ER) | payer MEDICARE, MEDICAID ==
[2022-10-01 16:24] LABS: #Lymphocytes 1.1 thou/uL (1.20-3.40); #Monocytes 0.5 thou/uL (0.11-0.59); #Neutrophils 9.6 thou/uL (1.40-6.50); %Basophils 0.1 % (0.0-1.0); %Eosinophils 0.4 % (0.0-10.0); %Lymphocytes 9.8 % (21.0-51.0); %Monocytes 4.3 % (0.0-10.0); %Neutrophils 85.4 % (42.0-75.0); Mean Corpuscular Hemoglobin 32.6 pg (27.0-31.0); Mean Corpuscular Volume 98.7 fl (78.0-98.0); Mean Platelet Volume 6.4 fL (7.4-10.4); Platelet Count 195 10x3/uL (130-400); RBC Distribution Width 11.5 % (11.5-14.5); White Blood Cell (WBC) Count 11.3 10x3/uL (4.8-10.8)
[2022-10-01] MEDS ORDERED: Meclizine HCl 25 MG TAB ONE (16:32)
[2022-10-01 16:45] LABS: ALT (SGPT) 42 U/L (8-55); AST (SGOT) 35 U/L (5-34); Albumin 4.5 g/dL (3.4-4.8); Alkaline Phosphatase 71 U/L (40-110); Anion Gap 15 mmol/L (10-20); BUN (Urea Nitrogen) 22 mg/dL (8.4-25.7); Calc. Creatinine Clearance 0 mL/min (70-130); Calcium 9.3 mg/dL (7.8-10.44); Carbon Dioxide 22 mmol/L (23-31); Chloride 105 mmol/L (98-107); Estimated GFR 64; Globulin 2.8 g/dL (2.4-3.5); Glucose 116 mg/dL (80-115); Potassium 4.4 mmol/L (3.5-5.1); Protein, Total 7.3 g/dL (5.8-8.1); Sodium 138 mmol/L (136-145)
== END 2022-10-01 17:33 | disposition home or self-care (01) ==
LOC: ERS 15:18
DX: R42 Dizziness and giddiness (principal); I10 Essential (primary) hypertension; E78.5 Hyperlipidemia, unspecified; J44.9 Chronic obstructive pulmonary disease, unspecified; Z79.899 Other long term (current) drug therapy; Z79.82 Long term (current) use of aspirin
CPT/HCPCS: 36415; 70450; 71045; 80053; 83880; 84484; 85025; 93005

== ENCOUNTER 2023-02-27 09:11 | Outpatient (CLI) | payer MEDICARE, MEDICAID | END 2023-02-27 09:12 | disposition home or self-care (01) | LOC: RAD 09:11 | PROVIDERS: ATTEND Internal Medicine Critical Care Medicine | DX: R06.00 Dyspnea, unspecified (principal) | CPT/HCPCS: 71046 ==

== ENCOUNTER 2023-06-01 10:44 | Observation (INO) | payer MEDICARE, MEDICAID ==
[2023-06-01] MEDS ORDERED: Iopamidol-370 76% 500 ML MDV (1 ML CHARGE) ONE (10:45)
[2023-06-01 11:23] LABS: #Basophils 0.1 thou/uL (0.0-0.2); #Eosinphils 0.1 thou/uL (0.0-0.7); #Monocytes 0.6 thou/uL (0.11-0.59); #Neutrophils 4.6 thou/uL (1.40-6.50); %Basophils 0.7 % (0.0-1.0); %Eosinophils 1.8 % (0.0-10.0); %Lymphocytes 23.6 % (21.0-51.0); %Monocytes 8.7 % (0.0-10.0); %Neutrophils 64.9 % (42.0-75.0); Hemoglobin 14.5 g/dL (14.0-18.0); Mean Corpuscular HGB CONC 35.2 g/dL (32.0-36.0); Mean Corpuscular Volume 93.6 fl (78.0-98.0); Mean Platelet Volume 8.9 fL (7.4-10.4); Platelet Count 171 10x3/uL (130-400); RBC Distribution Width 12.5 % (11.5-14.5)
[2023-06-01 11:46] LABS: ALT (SGPT) 25 U/L (8-55); AST (SGOT) 26 U/L (5-34); Albumin 4.5 g/dL (3.4-4.8); Alkaline Phosphatase 85 U/L (40-110); Anion Gap 15 mmol/L (10-20); BUN (Urea Nitrogen) 20 mg/dL (8.4-25.7); Bilirubin, Total 0.9 mg/dL (0.2-1.2); CK (CPK) 152 U/L (30-200); Calc. Creatinine Clearance 0 mL/min (70-130); Calcium 9.3 mg/dL (7.8-10.44); Carbon Dioxide 22 mmol/L (23-31); Chloride 107 mmol/L (98-107); Estimated GFR 51; Glucose 97 mg/dL (83-110); Lipase 38 U/L (8-78); Protein, Total 7.5 g/dL (5.8-8.1); Sodium 140 mmol/L (136-145)
[2023-06-01] MEDS ORDERED: Senokot S 8.6-50 MG TAB PO PRN (11:58)
[2023-06-01] MEDS ORDERED: Acetaminophen 325 MG TAB PO PRN (11:58)
[2023-06-01] MEDS ORDERED: Guaifenesin DM 100-10/5 ML UDCUP PO PRN (11:58)
[2023-06-01] MEDS ORDERED: Aspirin Chewable 81 MG TAB ONE (12:14)
[2023-06-01 14:53] VITALS: BMI 20.7
[2023-06-01 16:44] LABS: CKMB 2.2 ng/mL (0-6.6)
[2023-06-01] MEDS: Ipratropium/Albuterol 3 ML NEB NEB SCH (18:06)
[2023-06-01] MEDS: Budesonide 0.5 MG/2 ML NEB NEB SCH (18:07)
[2023-06-01] MEDS: Famotidine 20 MG TAB PO SCH (20:55)
[2023-06-01] MEDS: Fish Oil 1,000 MG CAP PO SCH (20:55)
[2023-06-01] MEDS ORDERED: Atorvastatin Calcium 40 MG TAB PO SCH (21:00)
[2023-06-02 05:28] LABS: #Basophils 0.1 thou/uL (0.0-0.2); #Eosinphils 0.2 thou/uL (0.0-0.7); #Monocytes 0.9 thou/uL (0.11-0.59); #Neutrophils 4.7 thou/uL (1.40-6.50); %Basophils 0.8 % (0.0-1.0); %Eosinophils 3.1 % (0.0-10.0); %Lymphocytes 24.9 % (21.0-51.0); %Monocytes 10.9 % (0.0-10.0); Hemoglobin 14.5 g/dL (14.0-18.0); Mean Corpuscular Hemoglobin 32.6 pg (27.0-31.0); Mean Corpuscular Volume 95.7 fl (78.0-98.0); Mean Platelet Volume 8.8 fL (7.4-10.4); Platelet Count 163 10x3/uL (130-400); RBC Distribution Width 12.5 % (11.5-14.5); Red Blood Cell (RBC) Count 4.45 mill/uL (4.70-6.10); White Blood Cell (WBC) Count 7.8 10x3/uL (4.8-10.8)
[2023-06-02 05:51] LABS: ALT (SGPT) 21 U/L (8-55); AST (SGOT) 22 U/L (5-34); Alkaline Phosphatase 69 U/L (40-110); Anion Gap 13 mmol/L (10-20); BUN (Urea Nitrogen) 20 mg/dL (8.4-25.7); Bilirubin, Total 0.8 mg/dL (0.2-1.2); Calc. Creatinine Clearance 44 mL/min (70-130); Carbon Dioxide 21 mmol/L (23-31); Chloride 107 mmol/L (98-107); Estimated GFR 53; Globulin 2.7 g/dL (2.4-3.5); Glucose 84 mg/dL (83-110); Protein, Total 6.7 g/dL (5.8-8.1); Sodium 137 mmol/L (136-145)
[2023-06-02] MEDS: Fish Oil 1,000 MG CAP PO SCH (08:15)
[2023-06-02] MEDS: Famotidine 20 MG TAB PO SCH (08:15)
[2023-06-02] MEDS: Budesonide 0.5 MG/2 ML NEB NEB SCH (08:28)
[2023-06-02] MEDS: Ipratropium/Albuterol 3 ML NEB NEB SCH ×2 (08:29→13:45)
[2023-06-02] MEDS ORDERED: Aspirin 81 mg Enteric Coated Tablet PO SCH (09:00)
[2023-06-02 12:51] VITALS: BP 150/69; TEMP 97.6
== END 2023-06-02 17:30 | disposition home or self-care (01) ==
LOC: ERS 10:44 → 2SW 14:44
PROVIDERS: ADMIT Internal Medicine; ATTEND Emergency Medicine
DX: I49.3 Ventricular premature depolarization (principal); R00.2 Palpitations; I25.810 Atherosclerosis of coronary artery bypass graft(s) without angina pectoris; J44.9 Chronic obstructive pulmonary disease, unspecified; E78.5 Hyperlipidemia, unspecified; N18.32 Chronic kidney disease, stage 3b; I12.9 Hypertensive chronic kidney disease with stage 1 through stage 4 chronic kidney disease, or unspecified chronic kidney disease; Z95.1 Presence of aortocoronary bypass graft; Z79.82 Long term (current) use of aspirin; Z79.899 Other long term (current) drug therapy; Z91.041 Radiographic dye allergy status; Z87.891 Personal history of nicotine dependence
CPT/HCPCS: 71045; 71275; 80053 ×2; 82550; 82553; 83690; 83880; 84484 ×2; 85025 ×2; 85379; 93005; 93306; 99285; G0378 ×3; 36415; Q9967

== ENCOUNTER 2025-09-22 10:11 | Outpatient (CLI) | payer MEDICARE | END 2025-09-22 10:12 | disposition home or self-care (01) | LOC: RAD 10:11 | PROVIDERS: ATTEND Internal Medicine Critical Care Medicine | DX: R06.00 Dyspnea, unspecified (principal); J84.9 Interstitial pulmonary disease, unspecified | CPT/HCPCS: 71046 ==